=== PATIENT | female | born 1965 | race Caucasian/White ===

== ENCOUNTER 2018-11-04 15:54 | Outpatient (CLI) | payer BC | END 2018-11-04 15:55 | disposition home or self-care (01) | LOC: BICMAMMO 15:54 | PROVIDERS: ATTEND Family Medicine | DX: Z12.31 Encounter for screening mammogram for malignant neoplasm of breast (principal); R92.1 Mammographic calcification found on diagnostic imaging of breast; Z80.3 Family history of malignant neoplasm of breast | CPT/HCPCS: 77063; 77067 ==

== ENCOUNTER 2019-11-25 14:06 | Outpatient (CLI) | payer OTHER ==
--- NOTE | 2019-11-26 12:02 | MMO ---
Bilateral MAMMO Bilat Screen [facility]DI. CLINICAL HISTORY: Patient is 54 years old and is seen for screening. The patient has the following family history of breast cancer: mother, at age 55. The patient has no personal history of cancer. VIEWS: The views performed were: bilateral craniocaudal and bilateral mediolateral oblique. FILMS COMPARED: The present examination has been compared to prior imaging studies performed at [facility] on 09/18/2015 and 11/04/2018. This study has been interpreted with the assistance of computer-aided detection. MAMMOGRAM FINDINGS: The breasts are heterogeneously dense, which could obscure a lesion on mammography. Benign calcifications are noted bilaterally. There are no suspicious masses, suspicious calcifications, or new areas of architectural distortion. IMPRESSION: THERE IS NO MAMMOGRAPHIC EVIDENCE OF MALIGNANCY. A ROUTINE FOLLOW-UP MAMMOGRAM IN 1 YEAR IS RECOMMENDED. ACR BI-RADS Category 2 - Benign finding MAMMOGRAPHY NOTE: 1. A negative mammogram report should not delay a biopsy if a dominant of clinically suspicious mass is present. 2. Approximately 10% to 15% of breast cancers are not detected by mammography. 3. Adenosis and dense breasts may obscure an underlying neoplasm. Reported by: DUANE LA MD Electonically Signed: [id number]
== END 2019-11-25 14:07 | disposition home or self-care (01) ==
LOC: BICMAMMO 14:06
PROVIDERS: ATTEND Family Medicine
DX: Z12.31 Encounter for screening mammogram for malignant neoplasm of breast (principal); Z80.3 Family history of malignant neoplasm of breast
CPT/HCPCS: 77067

== ENCOUNTER 2020-07-14 06:15 | Outpatient (CLI) | payer OTHER ==
[2020-07-14 11:50] LABS: #Basophils 0.1 thou/uL (0.0-0.2); #Eosinphils 0.6 thou/uL (0.0-0.7); #Lymphocytes 1.9 thou/uL (1.20-3.40); #Monocytes 0.4 thou/uL (0.11-0.59); #Neutrophils 5.6 thou/uL (1.40-6.50); %Basophils 0.8 % (0.0-1.0); %Lymphocytes 22.5 % (21.0-51.0); %Monocytes 4.6 % (0.0-10.0); %Neutrophils 65.1 % (42.0-75.0); Hemoglobin 11.9 g/dL (12.0-16.0); Mean Corpuscular HGB CONC 32.6 g/dL (32.0-36.0); Mean Corpuscular Hemoglobin 29.7 pg (27.0-31.0); Mean Corpuscular Volume 90.9 fL (78.0-98.0); Mean Platelet Volume 7.2 fL (7.4-10.4); Platelet Count 380 thou/uL (130-400); RBC Distribution Width 12.1 % (11.5-14.5); Red Blood Cell (RBC) Count 4.01 mill/uL (4.20-5.40); White Blood Cell (WBC) Count 8.6 thou/uL (4.8-10.8)
[2020-07-14 12:16] LABS: Anion Gap 16 mmol/L (10-20); BUN (Urea Nitrogen) 62 mg/dL (9.8-20.1); Calc. Creatinine Clearance 0 mL/min (70-130); Calcium 9.7 mg/dL (7.8-10.44); Carbon Dioxide 18 mmol/L (22-29); Chloride 109 mmol/L (98-107); Estimated GFR-MDRD 10; Glucose 88 mg/dL (70-105); Sodium 138 mmol/L (136-145)
[2020-07-14 19:47] LABS: SARS-CoV-2 MS2 Positive; SARS-CoV-2 N Gene Negative; SARS-CoV-2 S Gene Negative; SARS-CoV-2 by NAA Not Detected (NotDetected); SARS-CoV-2 orf1ab Negative
--- NOTE | 2020-07-18 14:13 | EKG ---
Test Reason : Blood Pressure : / mmHG Vent. Rate : 061 BPM Atrial Rate : 061 BPM P-R Int : 148 ms QRS Dur : 080 ms QT Int : 420 ms P-R-T Axes : 055 080 066 degrees QTc Int : 422 ms Normal sinus rhythm Anteroseptal infarct , age undetermined Abnormal ECG No previous ECGs available Confirmed by NICHOLAS MILTON ([id number]) on 07/18/2020 2:13:37 PM Referred By: ABDULLAHI Confirmed By:NICHOLAS MILTON
== END 2020-07-14 06:16 | disposition home or self-care (01) ==
LOC: LABBT 06:15
PROVIDERS: ATTEND Specialist
DX: Z01.818 Encounter for other preprocedural examination (principal); Z20.828 Contact with and (suspected) exposure to other viral communicable diseases; N18.6 End stage renal disease
CPT/HCPCS: 80048; 85025; 87635; 93005; 93010; U0003

== ENCOUNTER 2021-07-02 14:07 | Outpatient (CLI) | payer MEDICARE, OTHER | END 2021-07-02 14:08 | disposition home or self-care (01) | LOC: BICCT 14:07 | PROVIDERS: ATTEND Family Medicine | DX: Z12.2 Encounter for screening for malignant neoplasm of respiratory organs (principal); Z87.891 Personal history of nicotine dependence | CPT/HCPCS: 71271 ==

== ENCOUNTER 2021-07-02 14:14 | Outpatient (CLI) | payer MEDICARE, OTHER | END 2021-07-02 14:15 | disposition home or self-care (01) | LOC: BICMAMMO 14:14 | PROVIDERS: ATTEND Family Medicine | DX: Z12.31 Encounter for screening mammogram for malignant neoplasm of breast (principal); Z13.820 Encounter for screening for osteoporosis; M81.0 Age-related osteoporosis without current pathological fracture; M85.88 Other specified disorders of bone density and structure, other site; Z80.3 Family history of malignant neoplasm of breast | CPT/HCPCS: 77063; 77067; 77080 ==

== ENCOUNTER 2021-09-20 11:03 | Day surgery (SDC) | payer MEDICARE, OTHER ==
[~2021-09-20 11:03] MED LIST: Acetaminophen 500 MG TAB PO PRN; Vedolizumab 300 MG in Sodium Chloride 0.9% 250 ML 250 ML IVPB SCH
[2021-09-20] MEDS ORDERED: Acetaminophen 500 MG TAB ONE (11:52)
[2021-09-20] MEDS ORDERED: diphenhydrAMINE 25 MG CAP ONE (11:52)
[2021-09-20 12:11] VITALS: BP 172/98; TEMP 98.3
== END 2021-09-20 12:52 | disposition home or self-care (01) ==
LOC: ONC/OP 11:03
PROVIDERS: ATTEND Internal Medicine Gastroenterology
DX: K50.10 Crohn's disease of large intestine without complications (principal)
CPT/HCPCS: 96413; J3380; J7050

== ENCOUNTER 2021-10-03 10:53 | Day surgery (SDC) | payer MEDICARE, OTHER ==
[2021-10-03] MEDS ORDERED: Sodium Chloride 0.9% 10 ML ONE ×2 (11:00)
== END 2021-10-03 11:48 | disposition home or self-care (01) ==
LOC: ONC/OP 10:53
PROVIDERS: ATTEND Internal Medicine Gastroenterology
DX: K50.10 Crohn's disease of large intestine without complications (principal)
CPT/HCPCS: 96413; J3380; J7050

== ENCOUNTER 2021-11-05 10:51 | Day surgery (SDC) | payer MEDICARE, OTHER ==
[~2021-11-05 10:51] MED LIST changes: +Sodium Chloride 0.9% 1,000 ML IV SCH
[2021-11-05] MEDS ORDERED: Sodium Chloride 0.9% 10 ML ONE (10:57)
[2021-11-05 11:19] VITALS: BP 135/85; TEMP 98.2
== END 2021-11-05 11:59 | disposition home or self-care (01) ==
LOC: ONC/OP 10:51
PROVIDERS: ATTEND Internal Medicine Gastroenterology
DX: K50.10 Crohn's disease of large intestine without complications (principal)
CPT/HCPCS: 36415; 80053; 80197; 81001; 83970; 84100; 85025; 85576; 86644; 86645; 87799; 96413; J3380; J7050

== ENCOUNTER 2022-02-21 10:58 | Day surgery (SDC) | payer MEDICARE, OTHER ==
[~2022-02-21 10:58] MED LIST changes: -Acetaminophen 500 MG TAB PO PRN; +Acetaminophen 500 MG TAB PO SCH; -Sodium Chloride 0.9% 1,000 ML IV SCH
[2022-02-21 11:13] VITALS: BP 146/85; TEMP 97.9
== END 2022-02-21 13:46 | disposition home or self-care (01) ==
LOC: ONC/OP 10:58
PROVIDERS: ATTEND Internal Medicine Gastroenterology
DX: K50.10 Crohn's disease of large intestine without complications (principal)
CPT/HCPCS: 96413; J3380; J7050

== ENCOUNTER 2022-03-21 10:58 | Day surgery (SDC) | payer MEDICARE, OTHER ==
[~2022-03-21 10:58] MED LIST changes: +Acetaminophen 500 MG TAB PO PRN; -Acetaminophen 500 MG TAB PO SCH
[2022-03-21 11:18] VITALS: BP 103/63; TEMP 98.5
== END 2022-03-21 13:15 | disposition home or self-care (01) ==
LOC: ONC/OP 10:58
PROVIDERS: ATTEND Internal Medicine Gastroenterology
DX: K50.10 Crohn's disease of large intestine without complications (principal)
CPT/HCPCS: 96413; J3380; J7050

== ENCOUNTER → 2022-04-18 | Day surgery (SDC) | payer MEDICARE, MEDICAID ==
[~2022-04-18] MED LIST changes: -Acetaminophen 500 MG TAB PO PRN; +Acetaminophen 500 MG TAB PO SCH
[2022-04-18 11:33] VITALS: BP 113/83; TEMP 98.2
== END | disposition home or self-care (01) ==
LOC: ONC/OP 11:01
PROVIDERS: ATTEND Internal Medicine Gastroenterology
DX: K50.10 Crohn's disease of large intestine without complications (principal)
CPT/HCPCS: 96413; J3380; J7050

== ENCOUNTER 2022-05-22 10:00 | Day surgery (SDC) | payer OTHER, MEDICAID ==
[~2022-05-22 10:00] MED LIST changes: +INFLIXIMAB ABDA IVPB SCH; +INFLIXIMAB IVPB SCH; +SODIUM CHLORIDE 0.9% IVPB SCH; -Vedolizumab 300 MG in Sodium Chloride 0.9% 250 ML 250 ML IVPB SCH; +diphenhydrAMINE 25 MG CAP PO SCH
[2022-05-22] MEDS ORDERED: Acetaminophen 500 MG TAB ONE ×2 (10:31)
[2022-05-22] MEDS ORDERED: diphenhydrAMINE 25 MG CAP ONE (10:31)
[2022-05-22 10:33] VITALS: BP 119/78; TEMP 97.7
== END 2022-05-22 13:19 | disposition home or self-care (01) ==
LOC: ONC/OP 10:00
PROVIDERS: ATTEND Internal Medicine Gastroenterology
DX: K50.10 Crohn's disease of large intestine without complications (principal)
CPT/HCPCS: 96413; 96415; J1745; J7050; Q5104

== ENCOUNTER 2022-07-04 09:46 | Day surgery (SDC) | payer OTHER, MEDICAID ==
[~2022-07-04 09:46] MED LIST changes: -INFLIXIMAB IVPB SCH
[2022-07-04] MEDS ORDERED: Acetaminophen 500 MG TAB ONE ×2 (09:55)
[2022-07-04] MEDS ORDERED: diphenhydrAMINE 25 MG CAP ONE (09:55)
[2022-07-04] MEDS ORDERED: SODIUM CHLORIDE 0.9% IVPB SCH (10:00)
[2022-07-04] MEDS ORDERED: INFLIXIMAB ABDA IVPB SCH (10:00)
[2022-07-04 11:21] VITALS: BP 135/91; TEMP 98.6
== END 2022-07-04 16:54 | disposition home or self-care (01) ==
LOC: ONC/OP 09:46
PROVIDERS: ATTEND Internal Medicine Gastroenterology
DX: K50.10 Crohn's disease of large intestine without complications (principal)
CPT/HCPCS: 96413; 96415; J7050; Q5104

== ENCOUNTER 2022-08-27 15:29 | Observation (INO) | payer OTHER, MEDICAID ==
[2022-08-27] MEDS ORDERED: FENTANYL 50 MCG/ML 1 ML VIAL ONE (16:11)
[2022-08-27 16:17] LABS: Hemoglobin 14.7 g/dL (12.0-16.0); Mean Corpuscular HGB CONC 33.9 g/dL (32.0-36.0); Mean Corpuscular Volume 94.3 fl (78.0-98.0); Mean Platelet Volume 7.2 fL (7.4-10.4); Platelet Count 211 10x3/uL (130-400); RBC Distribution Width 12.9 % (11.5-14.5); Red Blood Cell (RBC) Count 4.59 mill/uL (4.20-5.40)
[2022-08-27 16:35] LABS: ALT (SGPT) 20 U/L (8-55); AST (SGOT) 34 U/L (5-34); Albumin 4.7 g/dL (3.5-5.0); Alkaline Phosphatase 49 U/L (40-110); Anion Gap 20 mmol/L (10-20); BUN (Urea Nitrogen) 13 mg/dL (9.8-20.1); Bilirubin, Total 0.5 mg/dL (0.2-1.2); Calc. Creatinine Clearance 0 mL/min (70-130); Calcium 8.8 mg/dL (7.8-10.44); Carbon Dioxide 14 mmol/L (22-29); Chloride 99 mmol/L (98-107); Estimated GFR 54; Globulin 3.6 g/dL (2.4-3.5); Glucose 163 mg/dL (70-105); Lipase 28 U/L (8-78); Potassium 4.4 mmol/L (3.5-5.1); Protein, Total 8.3 g/dL (6.0-8.3); Sodium 129 mmol/L (136-145)
[2022-08-27 16:47] LABS: Bacteria/HPF None Seen HPF (None Seen); Bilirubin Negative (Negative); Blood, Urine Trace (Negative); Clarity Clear (Clear); Glucose, Urine (Dipstick) Normal (Negative); Ketone, Urine 80 mg/dL (Negative); Leukocyte Negative Leu/uL (Negative); Nitrite Negative (Negative); Protein, Urine (Dipstick) 50 mg/dL (Neg-Trace); RBC/HPF 0-3 HPF (0-3); Specific Gravity, Urine 1.016 (1.002-1.036); Squamous Epithelial None Seen HPF (0-3); Urobilinogen Normal mg/dL (Less than 2); WBC/HPF 0-3 HPF (0-3); pH, Urine 5.5 (5.0-9.0)
[2022-08-27 16:48] LABS: Band 5 % (5-11); Lymphocytes 6 % (21-51); MDiff Complete? YES; Monocytes 7 % (0-10); Neutrophil 82 % (42-75); Platelet Morphology Comment Appears Adequate; RBC Morphology Normal
[2022-08-27] MEDS ORDERED: HYDROcodone/Acetaminophen 5/325 mg Tablet PO PRN (17:53)
[2022-08-27] MEDS ORDERED: Acetaminophen 325 MG TAB PO PRN (17:53)
[2022-08-27] MEDS ORDERED: HYDROcodone/Acetaminophen 5/325 mg Tablet ONE (18:24)
[2022-08-27 19:48] LABS: Troponin I 0.024 ng/mL (< 0.028)
[2022-08-27] MEDS: cefTRIAXone\\ROCEPHIN 1 GM in Sodium Chloride 0.9% 100 ML IVPB SCH (20:35)
[2022-08-27] MEDS: Sodium Chloride 0.9% 1,000 ML IV SCH (20:35)
[2022-08-27] MEDS: Famotidine 20 MG TAB PO SCH (20:41)
[2022-08-27] MEDS ORDERED: Tacrolimus 0.5 MG CAP PO SCH (21:00)
[2022-08-27] MEDS: Mycophenolate 250 MG CAP PO SCH (21:46)
[2022-08-27] MEDS ORDERED: Sodium Chloride 0.65% Nasal 44 ML BOT EA NARE PRN (22:16)
[2022-08-27] MEDS ORDERED: Ondansetron PF 4 MG/2 ML Vial IVP PRN (22:16)
[2022-08-27 22:31] LABS: Troponin I 0.016 ng/mL (< 0.028)
[2022-08-27 22:37] LABS: SARS-CoV-2 NAA Rapid Test Not Detected (NotDetected)
[2022-08-27] MEDS: HYDROcodone/Acetaminophen 5/325 mg Tablet PO PRN (23:23)
[2022-08-28] MEDS ORDERED: Oseltamivir 75 MG CAP PO SCH (02:00)
[2022-08-28 02:12] LABS: Amphetamine Not Detected (NotDetected); Barbiturates Screen Not Detected (NotDetected); Benzodiazepine Screen Not Detected (NotDetected); Cocaine Metabolite Screen Not Detected (NotDetected); Methadone Not Detected (NotDetected); Methamphetamine Not Detected (NotDetected); Opiate Screen Not Detected (NotDetected); Oxycodone Screen Not Detected (NotDetected); Phencyclidine (PCP) Not Detected (NotDetected); THC/Cannabinoid Screen Detected (NotDetected); Tricyclic Screen Not Detected (NotDetected)
[2022-08-28] MEDS: HYDROcodone/Acetaminophen 5/325 mg Tablet PO PRN ×2 (03:33→08:48)
[2022-08-28 05:49] LABS: Anion Gap 15 mmol/L (10-20); BUN (Urea Nitrogen) 11 mg/dL (9.8-20.1); Calc. Creatinine Clearance 61 mL/min (70-130); Carbon Dioxide 18 mmol/L (22-29); Chloride 101 mmol/L (98-107); Estimated GFR 70; Glucose 112 mg/dL (70-105); Potassium 4.7 mmol/L (3.5-5.1); Sodium 129 mmol/L (136-145)
[2022-08-28] MEDS: Famotidine 20 MG TAB PO SCH (08:44)
[2022-08-28] MEDS: Mycophenolate 250 MG CAP PO SCH (08:45)
[2022-08-28] MEDS: Sodium Bicarbonate Tab 325 MG TAB PO SCH ×2 (08:46→16:28)
[2022-08-28] MEDS ORDERED: Tacrolimus 0.5 MG CAP PO SCH (09:00)
[2022-08-28] MEDS ORDERED: predniSONE 5 MG TAB PO SCH (09:00)
[2022-08-28] MEDS ORDERED: Oseltamivir 6 MG/ML ORAL SUSP PO SCH (09:00)
[2022-08-28] MEDS ORDERED: NIFEdipine 10 MG CAP PO SCH (09:00)
[2022-08-28] MEDS: Sodium Chloride 0.9% 1,000 ML IV SCH (09:03)
[2022-08-28 09:34] LABS: Band 14 % (5-11); Hemoglobin 13.5 g/dL (12.0-16.0); Lymphocytes 8 % (21-51); MDiff Complete? YES; Mean Corpuscular HGB CONC 33.2 g/dL (32.0-36.0); Mean Corpuscular Hemoglobin 31.3 pg (27.0-31.0); Mean Corpuscular Volume 94.4 fl (78.0-98.0); Mean Platelet Volume 7.2 fL (7.4-10.4); Monocytes 16 % (0-10); Neutrophil 62 % (42-75); Platelet Count 169 10x3/uL (130-400); Platelet Morphology Comment Appears Adequate; RBC Distribution Width 12.9 % (11.5-14.5); RBC Morphology Normal; Red Blood Cell (RBC) Count 4.31 mill/uL (4.20-5.40); Vacuoles SLIGHT; White Blood Cell (WBC) Count 9.6 10x3/uL (4.8-10.8)
[2022-08-28 15:52] VITALS: BP 132/90; TEMP 98.5
[2022-08-28] MEDS: Ondansetron ODT 4 MG TAB PO PRN ×2 (16:28→18:47)
[2022-08-28] MEDS: cefTRIAXone\\ROCEPHIN 1 GM in Sodium Chloride 0.9% 100 ML IVPB SCH (18:46)
== END 2022-08-28 19:10 | disposition home or self-care (01) ==
LOC: ERS 15:29 → 2SW 17:42
PROVIDERS: ADMIT Internal Medicine; ATTEND Internal Medicine
DX: J10.1 Influenza due to other identified influenza virus with other respiratory manifestations (principal); E87.1 Hypo-osmolality and hyponatremia; I12.9 Hypertensive chronic kidney disease with stage 1 through stage 4 chronic kidney disease, or unspecified chronic kidney disease; N18.9 Chronic kidney disease, unspecified; K50.90 Crohn's disease, unspecified, without complications; Z87.891 Personal history of nicotine dependence; Z79.52 Long term (current) use of systemic steroids; Z79.621 Long term (current) use of calcineurin inhibitor; Z79.899 Other long term (current) drug therapy; Z94.0 Kidney transplant status; Z20.822 Contact with and (suspected) exposure to COVID-19
CPT/HCPCS: 0240U; 71045; 80048; 80053; 80306; 83690; 83880; 84484 ×2; 85025 ×2; 85379; 93005; 96374; 99285; J3010; 36415; 81003; 81015; 96365; 96375; G0378; J0696; J2405; J3490; J7050; J7507; J7512; J7517; Q0162

== ENCOUNTER 2022-09-02 12:51 | Day surgery (SDC) | payer OTHER, MEDICAID ==
[2022-09-02] MEDS ORDERED: Acetaminophen 500 MG TAB ONE ×2 (13:54→13:55)
[2022-09-02] MEDS ORDERED: diphenhydrAMINE 25 MG CAP ONE (13:55)
[2022-09-02 16:35] VITALS: BP 103/72; TEMP 97.9
== END 2022-09-02 16:37 | disposition home or self-care (01) ==
LOC: ONC/OP 12:51
PROVIDERS: ATTEND Internal Medicine Gastroenterology
DX: K50.80 Crohn's disease of both small and large intestine without complications (principal)
CPT/HCPCS: 96413; 96415; J7050; Q5104

== ENCOUNTER 2022-10-08 12:15 | Emergency (ER) | payer OTHER ==
[2022-10-08] MEDS ORDERED: Haloperidol Lactate 5 MG/ML VIAL ONE (12:52)
[2022-10-08 13:05] LABS: #Eosinphils 0.1 thou/uL (0.0-0.7); #Lymphocytes 0.9 thou/uL (1.20-3.40); #Monocytes 0.7 thou/uL (0.11-0.59); #Neutrophils 11.8 thou/uL (1.40-6.50); %Basophils 0.1 % (0.0-1.0); %Eosinophils 0.6 % (0.0-10.0); %Lymphocytes 6.9 % (21.0-51.0); %Monocytes 5.1 % (0.0-10.0); %Neutrophils 87.2 % (42.0-75.0); Hemoglobin 13.9 g/dL (12.0-16.0); Mean Corpuscular HGB CONC 33.3 g/dL (32.0-36.0); Mean Corpuscular Hemoglobin 31.1 pg (27.0-31.0); Mean Corpuscular Volume 93.5 fl (78.0-98.0); Mean Platelet Volume 6.6 fL (7.4-10.4); Platelet Count 406 10x3/uL (130-400); RBC Distribution Width 12.3 % (11.5-14.5); Red Blood Cell (RBC) Count 4.46 mill/uL (4.20-5.40); White Blood Cell (WBC) Count 13.6 10x3/uL (4.8-10.8)
[2022-10-08 13:33] LABS: ALT (SGPT) 11 U/L (8-55); AST (SGOT) 14 U/L (5-34); Albumin 4.8 g/dL (3.5-5.0); Alkaline Phosphatase 46 U/L (40-110); Anion Gap 20 mmol/L (10-20); BUN (Urea Nitrogen) 10 mg/dL (9.8-20.1); Bilirubin, Total 0.9 mg/dL (0.2-1.2); Calc. Creatinine Clearance 0 mL/min (70-130); Calcium 10.1 mg/dL (7.8-10.44); Carbon Dioxide 18 mmol/L (22-29); Chloride 100 mmol/L (98-107); Estimated GFR 55; Globulin 3.4 g/dL (2.4-3.5); Glucose 177 mg/dL (70-105); Potassium 3.9 mmol/L (3.5-5.1); Protein, Total 8.2 g/dL (6.0-8.3); Sodium 134 mmol/L (136-145)
[2022-10-08] MEDS ORDERED: Dexamethasone 10 MG/ML VIAL ONE (15:33)
[2022-10-08] MEDS ORDERED: Ketorolac Tromethamine 30 MG/ML VIAL ONE (15:33)
[2022-10-08 15:39] LABS: Bacteria/HPF None Seen HPF (None Seen); Bilirubin Negative (Negative); Blood, Urine Negative (Negative); Clarity Clear (Clear); Glucose, Urine (Dipstick) Normal (Negative); Ketone, Urine Trace mg/dL (Negative); Leukocyte 75 Leu/uL (Negative); Nitrite Negative (Negative); Protein, Urine (Dipstick) Negative (Neg-Trace); RBC/HPF 0-3 HPF (0-3); Specific Gravity, Urine 1.006 (1.002-1.036); Squamous Epithelial None Seen HPF (0-3); Urobilinogen Normal mg/dL (Less than 2)
[2022-10-08 15:46] LABS: Amphetamine Not Detected (NotDetected); Barbiturates Screen Not Detected (NotDetected); Benzodiazepine Screen Not Detected (NotDetected); Cocaine Metabolite Screen Not Detected (NotDetected); Methadone Not Detected (NotDetected); Methamphetamine Not Detected (NotDetected); Opiate Screen Not Detected (NotDetected); Oxycodone Screen Not Detected (NotDetected); Phencyclidine (PCP) Not Detected (NotDetected); THC/Cannabinoid Screen Detected (NotDetected); Tricyclic Screen Not Detected (NotDetected)
== END 2022-10-08 18:36 | disposition home or self-care (01) ==
LOC: ERS 12:15
DX: R51.9 Headache, unspecified (principal); I10 Essential (primary) hypertension; Z87.891 Personal history of nicotine dependence
CPT/HCPCS: 36415; 70450; 80053; 80306; 81003; 81015; 85025; 96374; 96375; J1100; J1630; J1885

== ENCOUNTER 2022-10-14 20:39 | Inpatient (IN) | payer OTHER ==
[2022-10-14 21:17] LABS: #Lymphocytes 1.1 thou/uL (1.20-3.40); #Monocytes 1.1 thou/uL (0.11-0.59); #Neutrophils 14.5 thou/uL (1.40-6.50); %Basophils 0.2 % (0.0-1.0); %Eosinophils 0.2 % (0.0-10.0); %Lymphocytes 6.7 % (21.0-51.0); %Monocytes 6.4 % (0.0-10.0); %Neutrophils 86.5 % (42.0-75.0); Hemoglobin 14.2 g/dL (12.0-16.0); Mean Corpuscular HGB CONC 35.2 g/dL (32.0-36.0); Mean Corpuscular Hemoglobin 31.8 pg (27.0-31.0); Mean Corpuscular Volume 90.1 fl (78.0-98.0); Mean Platelet Volume 6.3 fL (7.4-10.4); Platelet Count 480 10x3/uL (130-400); RBC Distribution Width 12.2 % (11.5-14.5); Red Blood Cell (RBC) Count 4.48 mill/uL (4.20-5.40); White Blood Cell (WBC) Count 16.8 10x3/uL (4.8-10.8)
[2022-10-14 21:36] LABS: ALT (SGPT) 11 U/L (8-55); AST (SGOT) 15 U/L (5-34); Albumin 4.9 g/dL (3.5-5.0); Alkaline Phosphatase 42 U/L (40-110); Anion Gap 23 mmol/L (10-20); BUN (Urea Nitrogen) 10 mg/dL (9.8-20.1); Bilirubin, Total 1.2 mg/dL (0.2-1.2); Calc. Creatinine Clearance 0 mL/min (70-130); Calcium 9.3 mg/dL (7.8-10.44); Carbon Dioxide 15 mmol/L (22-29); Chloride 83 mmol/L (98-107); Estimated GFR 65; Globulin 2.9 g/dL (2.4-3.5); Glucose 232 mg/dL (70-105); Lipase 27 U/L (8-78); Potassium 3.9 mmol/L (3.5-5.1); Protein, Total 7.8 g/dL (6.0-8.3)
[2022-10-14 21:42] LABS: Sodium 117 mmol/L (136-145)
[2022-10-14] MEDS ORDERED: Ondansetron ODT 8 MG TAB ONE ×2 (22:17→22:18)
[2022-10-14] MEDS ORDERED: Ondansetron PF 4 MG/2 ML Vial ONE (22:35)
[2022-10-14] MEDS ORDERED: Ondansetron PF 4 MG/2 ML Vial IVP PRN (23:03)
[2022-10-14] MEDS ORDERED: Ondansetron ODT 4 MG TAB PO PRN (23:03)
[2022-10-14] MEDS ORDERED: Acetaminophen 650 MG Suppository PR PRN (23:03)
[2022-10-14] MEDS ORDERED: LORazepam 2 MG/ML SYR.(CARPUJECT) ONE (23:08)
[2022-10-14] MEDS ORDERED: Dexmedetomidine In 0.9 % NaCl 100 ML IVPB SCH (23:45)
[2022-10-14] MEDS ORDERED: Pantoprazole 40 MG VIAL IVP SCH (23:45)
[2022-10-14 23:50] VITALS: BMI 19.0
[2022-10-14] MEDS: Morphine 4 MG/ML VIAL SLOW IVP PRN (23:51)
[2022-10-14] MEDS ORDERED: Tacrolimus 0.5 MG CAP PO SCH (23:59)
[2022-10-15] MEDS: Promethazine HCl 25 MG/ML VIAL IM PRN ×2 (00:04→16:29)
[2022-10-15] MEDS ORDERED: VANCOMYCIN 1.25 GM/250 ML BAG IVPB SCH (00:15)
[2022-10-15] MEDS ORDERED: Meropenem 1 GM in Sodium Chloride 0.9% 100 ML IVPB SCH ×2 (00:15→00:30)
[2022-10-15 00:37] LABS: Anion Gap 16 mmol/L (10-20); BUN (Urea Nitrogen) 11 mg/dL (9.8-20.1); Calc. Creatinine Clearance 62 mL/min (70-130); Calcium 8.7 mg/dL (7.8-10.44); Carbon Dioxide 18 mmol/L (22-29); Chloride 86 mmol/L (98-107); Estimated GFR 77; Glucose 158 mg/dL (70-105); Potassium 3.2 mmol/L (3.5-5.1)
[2022-10-15 00:43] LABS: Sodium 117 mmol/L (136-145)
[2022-10-15] MEDS ORDERED: VANCOMYCIN 1.25 GM/250 ML BAG 1.25 GM in Premix Bag 1 BAG IVPB SCH (00:45)
[2022-10-15] MEDS ORDERED: Sodium Chloride 256 MEQ in Sterile Water Injection 936 ML IV SCH (01:00)
[2022-10-15 01:03] LABS: SARS-CoV-2 NAA Rapid Test Not Detected (NotDetected)
[2022-10-15 01:14] LABS: Lactic Acid 1.6 mmol/L (0.5-2.2)
[2022-10-15 01:32] LABS: Bacteria/HPF None Seen HPF (None Seen); Bilirubin Negative (Negative); Blood, Urine Negative (Negative); CAUTI Indications for Culture Immunosuppressed; Clarity Clear (Clear); Glucose, Urine (Dipstick) 100 mg/dL (Negative); Ketone, Urine 20 mg/dL (Negative); Leukocyte Negative Leu/uL (Negative); Nitrite Negative (Negative); Protein, Urine (Dipstick) 300 mg/dL (Neg-Trace); RBC/HPF 0-3 HPF (0-3); Specific Gravity, Urine 1.017 (1.002-1.036); Squamous Epithelial None Seen HPF (0-3); Urobilinogen Normal mg/dL (Less than 2); WBC/HPF 0-3 HPF (0-3)
[2022-10-15 01:39] LABS: Urine Culture Reflex Yes Yes
[2022-10-15 03:41] LABS: #Monocytes 1.2 thou/uL (0.11-0.59); #Neutrophils 11.4 thou/uL (1.40-6.50); %Basophils 0.1 % (0.0-1.0); %Eosinophils 0.3 % (0.0-10.0); %Lymphocytes 7.4 % (21.0-51.0); %Monocytes 8.5 % (0.0-10.0); %Neutrophils 83.7 % (42.0-75.0); Hemoglobin 13.6 g/dL (12.0-16.0); Mean Corpuscular HGB CONC 35.4 g/dL (32.0-36.0); Mean Corpuscular Hemoglobin 32.1 pg (27.0-31.0); Mean Corpuscular Volume 90.7 fl (78.0-98.0); Mean Platelet Volume 6.5 fL (7.4-10.4); Platelet Count 419 10x3/uL (130-400); RBC Distribution Width 12.2 % (11.5-14.5); Red Blood Cell (RBC) Count 4.23 mill/uL (4.20-5.40); White Blood Cell (WBC) Count 13.7 10x3/uL (4.8-10.8)
[2022-10-15] MEDS: Acetaminophen 325 MG TAB PO PRN (03:56)
[2022-10-15 04:00] LABS: Hemoglobin A1c 5.8 % (4.0-6.0)
[2022-10-15 04:20] LABS: Anion Gap 17 mmol/L (10-20); BUN (Urea Nitrogen) 12 mg/dL (9.8-20.1); Calc. Creatinine Clearance 62 mL/min (70-130); Calcium 8.6 mg/dL (7.8-10.44); Carbon Dioxide 22 mmol/L (22-29); Chloride 88 mmol/L (98-107); Estimated GFR 77; Glucose 136 mg/dL (70-105); Potassium 4.2 mmol/L (3.5-5.1); Sodium 123 mmol/L (136-145)
[2022-10-15 07:38] LABS: Anion Gap 14 mmol/L (10-20); BUN (Urea Nitrogen) 12 mg/dL (9.8-20.1); Calc. Creatinine Clearance 55 mL/min (70-130); Calcium 8.5 mg/dL (7.8-10.44); Carbon Dioxide 24 mmol/L (22-29); Chloride 91 mmol/L (98-107); Estimated GFR 67; Glucose 122 mg/dL (70-105); Potassium 3.8 mmol/L (3.5-5.1); Sodium 125 mmol/L (136-145)
[2022-10-15] MEDS ORDERED: Tacrolimus 1 MG CAP PO SCH (09:00)
[2022-10-15] MEDS ORDERED: Pantoprazole 40 MG VIAL IVP SCH (09:00)
[2022-10-15] MEDS: Meropenem 1 GM in Sodium Chloride 0.9% 100 ML IVPB SCH ×2 (09:50→09:58)
[2022-10-15] MEDS: Morphine 4 MG/ML VIAL SLOW IVP PRN ×2 (13:23→19:30)
[2022-10-15] MEDS ORDERED: Vancomycin HCl 750 MG in Sodium Chloride 0.9% 250 ML 250 ML IVPB SCH (14:00)
[2022-10-15] MEDS ORDERED: Promethazine HCl 25 MG in Sodium Chloride 0.9% 50 ML IVPB PRN (17:16)
[2022-10-15] MEDS: Mycophenolate 250 MG CAP PO SCH (20:43)
[2022-10-15] MEDS: Tacrolimus 0.5 MG CAP PO SCH (20:43)
[2022-10-15] MEDS: Fioricet 325/50/40 mg Tablet PO PRN (20:43)
[2022-10-15] MEDS ORDERED: Tacrolimus 0.5 MG CAP PO SCH (21:00)
[2022-10-16] MEDS: Meropenem 1 GM in Sodium Chloride 0.9% 100 ML IVPB SCH ×2 (02:26→10:35)
[2022-10-16 04:10] LABS: #Eosinphils 0.1 thou/uL (0.0-0.7); #Lymphocytes 1.6 thou/uL (1.20-3.40); #Monocytes 1.4 thou/uL (0.11-0.59); #Neutrophils 8.9 thou/uL (1.40-6.50); %Basophils 0.1 % (0.0-1.0); %Eosinophils 0.6 % (0.0-10.0); %Lymphocytes 12.9 % (21.0-51.0); %Monocytes 11.8 % (0.0-10.0); %Neutrophils 74.7 % (42.0-75.0); Hemoglobin 13.2 g/dL (12.0-16.0); Mean Corpuscular HGB CONC 33.9 g/dL (32.0-36.0); Mean Corpuscular Hemoglobin 31.1 pg (27.0-31.0); Mean Platelet Volume 6.4 fL (7.4-10.4); Platelet Count 404 10x3/uL (130-400); RBC Distribution Width 12.3 % (11.5-14.5); Red Blood Cell (RBC) Count 4.24 mill/uL (4.20-5.40)
[2022-10-16 04:28] LABS: Anion Gap 14 mmol/L (10-20); BUN (Urea Nitrogen) 12 mg/dL (9.8-20.1); Calc. Creatinine Clearance 55 mL/min (70-130); Calcium 8.6 mg/dL (7.8-10.44); Carbon Dioxide 24 mmol/L (22-29); Chloride 89 mmol/L (98-107); Estimated GFR 66; Glucose 119 mg/dL (70-105); Potassium 3.8 mmol/L (3.5-5.1); Sodium 123 mmol/L (136-145)
[2022-10-16] MEDS: Tacrolimus 0.5 MG CAP PO SCH ×2 (10:33→20:12)
[2022-10-16] MEDS: Mycophenolate 250 MG CAP PO SCH ×2 (10:34→20:12)
[2022-10-16] MEDS: Cholecalciferol 1,000 UNITS (25 MCG) TAB PO SCH (10:34)
[2022-10-16] MEDS: Famotidine 20 MG TAB PO SCH (10:34)
[2022-10-16] MEDS: Morphine 4 MG/ML VIAL SLOW IVP PRN ×2 (10:44→17:09)
[2022-10-16 13:22] LABS: CSF, Glucose 36 mg/dl (40-70); CSF, Protein 94 mg/dL (15-40)
[2022-10-16] MEDS ORDERED: STERILE WATER FS SCH (13:30)
[2022-10-16] MEDS ORDERED: SODIUM CHLORIDE 3% FS SCH (13:30)
[2022-10-16] MEDS ORDERED: ADMIXTURE FEE FS SCH (13:30)
[2022-10-16] MEDS ORDERED: cefTRIAXone\\ROCEPHIN 2 GM in Sodium Chloride 0.9% 100 ML IVPB SCH ×2 (14:00→18:00)
[2022-10-16] MEDS: ADMIXTURE FEE IV SCH (14:06)
[2022-10-16] MEDS: SODIUM CHLORIDE IV SCH (14:06)
[2022-10-16] MEDS: STERILE WATER IV SCH (14:06)
[2022-10-16 14:15] LABS: CSF Source CSF; Clarity Hazy (Clear); Tube # EDTA
[2022-10-16 14:17] LABS: Cell Count Non Hematic 11 %; Lymphocytes 39 %; Segmented Neutrophils 50 %
[2022-10-16 16:10] LABS: Anion Gap 12 mmol/L (10-20); BUN (Urea Nitrogen) 12 mg/dL (9.8-20.1); Calc. Creatinine Clearance 58 mL/min (70-130); Calcium 8.4 mg/dL (7.8-10.44); Carbon Dioxide 26 mmol/L (22-29); Chloride 87 mmol/L (98-107); Estimated GFR 72; Glucose 136 mg/dL (70-105); Potassium 3.5 mmol/L (3.5-5.1); Sodium 121 mmol/L (136-145)
[2022-10-16] MEDS: cefTRIAXone\\ROCEPHIN 2 GM in Sodium Chloride 0.9% 100 ML IVPB SCH (18:33)
[2022-10-16] MEDS: Promethazine HCl 12.5 MG in Sodium Chloride 0.9% 50 ML IVPB PRN (18:33)
[2022-10-16] MEDS: Ampicillin 2 GM in Sodium Chloride 0.9% 100 ML IVPB SCH (20:14)
[2022-10-16] MEDS ORDERED: AMPicillin 2,000 MG in Syringe 0 ML SLOW IVP SCH (21:00)
[2022-10-16] MEDS: Acyclovir Sodium 620 MG in Sodium Chloride 0.9% 100 ML IVPB SCH (21:39)
[2022-10-16] MEDS: Fioricet 325/50/40 mg Tablet PO PRN (21:48)
[2022-10-17] MEDS: Ampicillin 2 GM in Sodium Chloride 0.9% 100 ML IVPB SCH ×6 (00:25→23:28)
[2022-10-17] MEDS: ADMIXTURE FEE IV SCH ×2 (01:32→15:24)
[2022-10-17] MEDS: SODIUM CHLORIDE IV SCH ×2 (01:32→15:24)
[2022-10-17] MEDS: STERILE WATER IV SCH ×2 (01:32→15:24)
[2022-10-17] MEDS: Acetaminophen 325 MG TAB PO PRN ×2 (04:08→10:40)
[2022-10-17] MEDS: Morphine 4 MG/ML VIAL SLOW IVP PRN ×2 (04:16→15:18)
[2022-10-17] MEDS: Promethazine HCl 12.5 MG in Sodium Chloride 0.9% 50 ML IVPB PRN ×3 (04:47→21:03)
[2022-10-17] MEDS: Acyclovir Sodium 620 MG in Sodium Chloride 0.9% 100 ML IVPB SCH (05:09)
[2022-10-17 06:58] LABS: Anion Gap 14 mmol/L (10-20); BUN (Urea Nitrogen) 6 mg/dL (9.8-20.1); Calc. Creatinine Clearance 75 mL/min (70-130); Calcium 7.5 mg/dL (7.8-10.44); Carbon Dioxide 21 mmol/L (22-29); Chloride 93 mmol/L (98-107); Estimated GFR 95; Glucose 135 mg/dL (70-105); Potassium 3.4 mmol/L (3.5-5.1); Sodium 125 mmol/L (136-145)
[2022-10-17 07:02] LABS: Anion Gap 14 mmol/L (10-20); BUN (Urea Nitrogen) 7 mg/dL (9.8-20.1); Calc. Creatinine Clearance 73 mL/min (70-130); Calcium 7.8 mg/dL (7.8-10.44); Carbon Dioxide 23 mmol/L (22-29); Chloride 94 mmol/L (98-107); Estimated GFR 92; Glucose 140 mg/dL (70-105); Potassium 3.6 mmol/L (3.5-5.1); Sodium 127 mmol/L (136-145)
[2022-10-17] MEDS: cefTRIAXone\\ROCEPHIN 2 GM in Sodium Chloride 0.9% 100 ML IVPB SCH ×2 (10:38→20:06)
[2022-10-17] MEDS: Famotidine 20 MG TAB PO SCH (10:41)
[2022-10-17] MEDS: Cholecalciferol 1,000 UNITS (25 MCG) TAB PO SCH (10:41)
[2022-10-17] MEDS: Mycophenolate 250 MG CAP PO SCH ×2 (10:42→21:46)
[2022-10-17] MEDS: Tacrolimus 0.5 MG CAP PO SCH ×2 (10:42→21:47)
[2022-10-17 13:31] LABS: Reference Lab Name LABCORP
[2022-10-17 13:41] LABS: Ref Lab Test Ordered HISTOPLASMA AG CSF; Reference Lab Name LABCORP
[2022-10-17] MEDS ORDERED: NIFEdipine XL 30 MG TAB PO SCH (15:45)
[2022-10-17 18:49] LABS: Anion Gap 11 mmol/L (10-20); BUN (Urea Nitrogen) 4 mg/dL (9.8-20.1); Calc. Creatinine Clearance 78 mL/min (70-130); Calcium 7.7 mg/dL (7.8-10.44); Carbon Dioxide 25 mmol/L (22-29); Chloride 92 mmol/L (98-107); Estimated GFR 100; Glucose 131 mg/dL (70-105); Potassium 3.1 mmol/L (3.5-5.1); Sodium 125 mmol/L (136-145)
[2022-10-17] MEDS: Fioricet 325/50/40 mg Tablet PO PRN (23:51)
[2022-10-18] MEDS: Ampicillin 2 GM in Sodium Chloride 0.9% 100 ML IVPB SCH ×3 (02:32→09:52)
[2022-10-18] MEDS: SODIUM CHLORIDE IV SCH ×3 (05:07→19:24)
[2022-10-18] MEDS: ADMIXTURE FEE IV SCH ×3 (05:07→19:24)
[2022-10-18] MEDS: STERILE WATER IV SCH ×3 (05:07→19:24)
[2022-10-18 06:17] LABS: #Eosinphils 0.1 thou/uL (0.0-0.7); #Monocytes 0.9 thou/uL (0.11-0.59); #Neutrophils 8.4 thou/uL (1.40-6.50); %Basophils 0.4 % (0.0-1.0); %Eosinophils 0.8 % (0.0-10.0); %Lymphocytes 9.9 % (21.0-51.0); %Monocytes 8.1 % (0.0-10.0); %Neutrophils 80.8 % (42.0-75.0); Hemoglobin 12.4 g/dL (12.0-16.0); Mean Corpuscular Hemoglobin 31.3 pg (27.0-31.0); Mean Corpuscular Volume 92.1 fl (78.0-98.0); Mean Platelet Volume 6.3 fL (7.4-10.4); Platelet Count 346 10x3/uL (130-400); RBC Distribution Width 12.1 % (11.5-14.5); Red Blood Cell (RBC) Count 3.96 mill/uL (4.20-5.40); White Blood Cell (WBC) Count 10.4 10x3/uL (4.8-10.8)
[2022-10-18 06:33] LABS: Anion Gap 14 mmol/L (10-20); BUN (Urea Nitrogen) Less than 4 mg/dL (9.8-20.1); Calc. Creatinine Clearance 75 mL/min (70-130); Calcium 7.8 mg/dL (7.8-10.44); Carbon Dioxide 24 mmol/L (22-29); Chloride 91 mmol/L (98-107); Estimated GFR 95; Glucose 130 mg/dL (70-105); Potassium 3.1 mmol/L (3.5-5.1); Sodium 126 mmol/L (136-145)
[2022-10-18] MEDS: cefTRIAXone\\ROCEPHIN 2 GM in Sodium Chloride 0.9% 100 ML IVPB SCH (08:24)
[2022-10-18] MEDS: Promethazine HCl 12.5 MG in Sodium Chloride 0.9% 50 ML IVPB PRN (08:26)
[2022-10-18] MEDS: SUMAtriptan Succinate 6 MG/0.5 ML VIAL SC PRN (09:12)
[2022-10-18] MEDS: Losartan 25 MG TAB PO SCH (09:45)
[2022-10-18] MEDS: NIFEdipine XL 30 MG TAB PO SCH (09:45)
[2022-10-18] MEDS: Famotidine 20 MG TAB PO SCH (09:46)
[2022-10-18] MEDS: Mycophenolate 250 MG CAP PO SCH ×2 (09:46→21:10)
[2022-10-18] MEDS: Cholecalciferol 1,000 UNITS (25 MCG) TAB PO SCH (09:46)
[2022-10-18] MEDS: Tacrolimus 0.5 MG CAP PO SCH ×2 (09:46→20:57)
[2022-10-18] MEDS ORDERED: Polyethylene Glycol 3350 17 GM Packet PO PRN (11:18)
[2022-10-18] MEDS: Ambisome 300 MG in Dextrose 5% in Water 250 ML IVPB SCH (14:39)
[2022-10-18] MEDS: Fioricet 325/50/40 mg Tablet PO PRN ×2 (15:05→21:42)
[2022-10-18] MEDS ORDERED: Potassium Chloride 20 MEQ TAB PO SCH ×2 (20:00→21:00)
[2022-10-18] MEDS ORDERED: Electrolyte Replacement Protocol 1 EACH FS SCH (20:00)
[2022-10-18 20:47] LABS: Anion Gap 12 mmol/L (10-20); BUN (Urea Nitrogen) 4 mg/dL (9.8-20.1); Calc. Creatinine Clearance 81 mL/min (70-130); Calcium 8.3 mg/dL (7.8-10.44); Carbon Dioxide 24 mmol/L (22-29); Chloride 95 mmol/L (98-107); Estimated GFR 96; Glucose 114 mg/dL (70-105); Potassium 2.9 mmol/L (3.5-5.1); Sodium 128 mmol/L (136-145)
[2022-10-18] MEDS: Cyanocobalamin (Vitamin B-12) 1,000 MCG TAB PO SCH (20:54)
[2022-10-18] MEDS: Folic Acid 1 MG TAB PO SCH (20:59)
[2022-10-18] MEDS: Senokot S 8.6-50 MG TAB PO SCH (20:59)
[2022-10-19] MEDS: Promethazine HCl 12.5 MG in Sodium Chloride 0.9% 50 ML IVPB PRN ×2 (03:28→23:06)
[2022-10-19] MEDS: STERILE WATER IV SCH (05:18)
[2022-10-19] MEDS: ADMIXTURE FEE IV SCH (05:18)
[2022-10-19] MEDS: SODIUM CHLORIDE IV SCH (05:18)
[2022-10-19 08:26] LABS: Anion Gap 12 mmol/L (10-20); BUN (Urea Nitrogen) 5 mg/dL (9.8-20.1); Calc. Creatinine Clearance 77 mL/min (70-130); Carbon Dioxide 22 mmol/L (22-29); Chloride 98 mmol/L (98-107); Estimated GFR 101; Glucose 127 mg/dL (70-105); Magnesium 1.6 mg/dL (1.6-2.6); Sodium 128 mmol/L (136-145)
[2022-10-19] MEDS ORDERED: Magnesium Sulfate In Water 4 GM in Premix Bag 1 BAG IVPB SCH (09:00)
[2022-10-19] MEDS: Tacrolimus 0.5 MG CAP PO SCH ×2 (09:55→20:59)
[2022-10-19] MEDS: Losartan 25 MG TAB PO SCH (09:56)
[2022-10-19] MEDS: NIFEdipine XL 30 MG TAB PO SCH (09:58)
[2022-10-19] MEDS: Senokot S 8.6-50 MG TAB PO SCH ×2 (09:59→19:09)
[2022-10-19] MEDS: Cholecalciferol 1,000 UNITS (25 MCG) TAB PO SCH (09:59)
[2022-10-19] MEDS: Famotidine 20 MG TAB PO SCH (09:59)
[2022-10-19 10:02] LABS: Phosphorus 1.3 mg/dL (2.3-4.7)
[2022-10-19] MEDS ORDERED: Loperamide HCl 2 MG CAP PO PRN (10:04)
[2022-10-19] MEDS: Fioricet 325/50/40 mg Tablet PO PRN ×2 (10:54→16:46)
[2022-10-19] MEDS: Mycophenolate 250 MG CAP PO SCH ×2 (10:55→20:59)
[2022-10-19] MEDS ORDERED: SODIUM CHLORIDE IV SCH (10:56)
[2022-10-19] MEDS ORDERED: STERILE WATER IV SCH (10:56)
[2022-10-19] MEDS ORDERED: ADMIXTURE FEE IV SCH (10:56)
[2022-10-19] MEDS ORDERED: Potassium Phosphate 30 MMOL in Sodium Chloride 0.9% 250 ML 250 ML IVPB SCH (11:15)
[2022-10-19] MEDS: Ambisome 300 MG in Dextrose 5% in Water 250 ML IVPB SCH ×2 (15:00→18:00)
[2022-10-19 15:13] LABS: CMV DNA-PCR Test Negative (Negative)
[2022-10-19 16:37] LABS: Tacrolimus 8.8 ng/mL (2.0-20.0)
[2022-10-19 19:27] LABS: Anion Gap 10 mmol/L (10-20); BUN (Urea Nitrogen) 7 mg/dL (9.8-20.1); Calc. Creatinine Clearance 68 mL/min (70-130); Calcium 7.7 mg/dL (7.8-10.44); Carbon Dioxide 21 mmol/L (22-29); Chloride 99 mmol/L (98-107); Estimated GFR 86; Glucose 196 mg/dL (70-105); Potassium 3.3 mmol/L (3.5-5.1); Sodium 127 mmol/L (136-145)
[2022-10-19] MEDS ORDERED: Potassium Chloride 20 MEQ TAB PO SCH (20:15)
[2022-10-19] MEDS: Cyanocobalamin (Vitamin B-12) 1,000 MCG TAB PO SCH (20:59)
[2022-10-19] MEDS: Folic Acid 1 MG TAB PO SCH (20:59)
[2022-10-19] MEDS: Morphine 4 MG/ML VIAL SLOW IVP PRN (22:50)
[2022-10-20 08:08] LABS: #Basophils 0.2 thou/uL (0.0-0.2); #Eosinphils 0.2 thou/uL (0.0-0.7); #Neutrophils 7.3 thou/uL (1.40-6.50); %Basophils 1.7 % (0.0-1.0); %Eosinophils 2.4 % (0.0-10.0); %Lymphocytes 10.5 % (21.0-51.0); %Monocytes 10.1 % (0.0-10.0); %Neutrophils 75.2 % (42.0-75.0); Hemoglobin 10.9 g/dL (12.0-16.0); Mean Corpuscular HGB CONC 34.1 g/dL (32.0-36.0); Mean Corpuscular Hemoglobin 31.5 pg (27.0-31.0); Mean Corpuscular Volume 92.1 fl (78.0-98.0); Mean Platelet Volume 6.2 fL (7.4-10.4); Platelet Count 289 10x3/uL (130-400); RBC Distribution Width 12.4 % (11.5-14.5); Red Blood Cell (RBC) Count 3.45 mill/uL (4.20-5.40); White Blood Cell (WBC) Count 9.6 10x3/uL (4.8-10.8)
[2022-10-20 08:29] LABS: Anion Gap 9 mmol/L (10-20); BUN (Urea Nitrogen) 5 mg/dL (9.8-20.1); Calc. Creatinine Clearance 73 mL/min (70-130); Calcium 7.4 mg/dL (7.8-10.44); Carbon Dioxide 21 mmol/L (22-29); Chloride 101 mmol/L (98-107); Estimated GFR 95; Glucose 116 mg/dL (70-105); Magnesium 1.9 mg/dL (1.6-2.6); Potassium 3.3 mmol/L (3.5-5.1); Sodium 128 mmol/L (136-145)
[2022-10-20 08:32] LABS: Phosphorus 1.8 mg/dL (2.3-4.7)
[2022-10-20] MEDS: NIFEdipine XL 30 MG TAB PO SCH (09:51)
[2022-10-20] MEDS: Senokot S 8.6-50 MG TAB PO SCH ×2 (09:51→20:45)
[2022-10-20] MEDS: Famotidine 20 MG TAB PO SCH (09:52)
[2022-10-20] MEDS: Losartan 25 MG TAB PO SCH (09:52)
[2022-10-20] MEDS: Mycophenolate 250 MG CAP PO SCH ×2 (09:52→20:43)
[2022-10-20] MEDS: Cholecalciferol 1,000 UNITS (25 MCG) TAB PO SCH (09:52)
[2022-10-20] MEDS: Fioricet 325/50/40 mg Tablet PO PRN ×2 (09:52→18:53)
[2022-10-20] MEDS: Tacrolimus 0.5 MG CAP PO SCH ×2 (09:55→20:44)
[2022-10-20] MEDS ORDERED: Potassium Chloride 20 MEQ TAB PO SCH (12:15)
[2022-10-20] MEDS ORDERED: Magnesium 2 GM/50 ML(in water) 2 GM in Premix Bag 1 BAG IVPB SCH (12:15)
[2022-10-20] MEDS: Ambisome 300 MG in Dextrose 5% in Water 250 ML IVPB SCH (16:41)
[2022-10-20] MEDS: DEXTROSE 5% FS SCH ×2 (16:41→19:37)
[2022-10-20] MEDS: PRE FILLED FS SCH ×2 (16:41→19:37)
[2022-10-20] MEDS: WATER FS SCH ×2 (16:41→19:37)
[2022-10-20] MEDS: PHOS-NAK 1 PKT PACK PO SCH ×2 (16:42→20:46)
[2022-10-20] MEDS: Folic Acid 1 MG TAB PO SCH (20:43)
[2022-10-20] MEDS: Cyanocobalamin (Vitamin B-12) 1,000 MCG TAB PO SCH (20:43)
[2022-10-21] MEDS: Promethazine HCl 12.5 MG in Sodium Chloride 0.9% 50 ML IVPB PRN (01:42)
[2022-10-21 07:03] LABS: #Eosinphils 0.2 thou/uL (0.0-0.7); #Lymphocytes 1.1 thou/uL (1.20-3.40); #Monocytes 0.8 thou/uL (0.11-0.59); #Neutrophils 6.9 thou/uL (1.40-6.50); %Lymphocytes 12.3 % (21.0-51.0); %Monocytes 8.6 % (0.0-10.0); %Neutrophils 77.1 % (42.0-75.0); Hemoglobin 11.5 g/dL (12.0-16.0); Mean Corpuscular HGB CONC 36.3 g/dL (32.0-36.0); Mean Corpuscular Hemoglobin 33.5 pg (27.0-31.0); Mean Corpuscular Volume 92.2 fl (78.0-98.0); Mean Platelet Volume 6.4 fL (7.4-10.4); Platelet Count 295 10x3/uL (130-400); RBC Distribution Width 12.5 % (11.5-14.5); Red Blood Cell (RBC) Count 3.45 mill/uL (4.20-5.40); White Blood Cell (WBC) Count 8.9 10x3/uL (4.8-10.8)
[2022-10-21 07:25] LABS: Phosphorus 1.8 mg/dL (2.3-4.7)
[2022-10-21 07:27] LABS: Anion Gap 11 mmol/L (10-20); BUN (Urea Nitrogen) 5 mg/dL (9.8-20.1); Calc. Creatinine Clearance 77 mL/min (70-130); Calcium 7.8 mg/dL (7.8-10.44); Carbon Dioxide 21 mmol/L (22-29); Chloride 100 mmol/L (98-107); Estimated GFR 101; Glucose 121 mg/dL (70-105); Magnesium 1.9 mg/dL (1.6-2.6); Potassium 3.4 mmol/L (3.5-5.1); Sodium 129 mmol/L (136-145)
[2022-10-21] MEDS ORDERED: Magnesium 2 GM/50 ML(in water) 2 GM in Premix Bag 1 BAG IVPB SCH (08:30)
[2022-10-21] MEDS ORDERED: Potassium Chloride 20 MEQ TAB PO SCH (08:30)
[2022-10-21] MEDS: STERILE WATER IV SCH ×2 (09:46→22:07)
[2022-10-21] MEDS: ADMIXTURE FEE IV SCH ×2 (09:46→22:07)
[2022-10-21] MEDS: SODIUM CHLORIDE IV SCH ×2 (09:46→22:07)
[2022-10-21] MEDS: PHOS-NAK 1 PKT PACK PO SCH ×2 (09:47→12:43)
[2022-10-21] MEDS: Tacrolimus 0.5 MG CAP PO SCH ×2 (09:51→20:25)
[2022-10-21] MEDS: NIFEdipine XL 30 MG TAB PO SCH (09:52)
[2022-10-21] MEDS: Cholecalciferol 1,000 UNITS (25 MCG) TAB PO SCH (09:53)
[2022-10-21] MEDS: Mycophenolate 250 MG CAP PO SCH ×2 (09:53→20:24)
[2022-10-21] MEDS: Losartan 25 MG TAB PO SCH (09:53)
[2022-10-21] MEDS: Famotidine 20 MG TAB PO SCH (09:54)
[2022-10-21] MEDS: Senokot S 8.6-50 MG TAB PO SCH ×2 (12:32→20:24)
[2022-10-21] MEDS: Acetaminophen 325 MG TAB PO PRN ×2 (15:09→22:03)
[2022-10-21 16:13] LABS: QuantiFERON-TB Gold Plus Negative (Negative)
[2022-10-21] MEDS: SUMAtriptan Succinate 6 MG/0.5 ML VIAL SC PRN ×2 (16:50→22:02)
[2022-10-21] MEDS: DEXTROSE 5% FS SCH ×2 (18:00→20:18)
[2022-10-21] MEDS: PRE FILLED FS SCH ×2 (18:00→20:18)
[2022-10-21] MEDS: WATER FS SCH ×2 (18:00→20:18)
[2022-10-21] MEDS: Ambisome 300 MG in Dextrose 5% in Water 250 ML IVPB SCH (18:03)
[2022-10-21 20:15] LABS: Anion Gap 11 mmol/L (10-20); BUN (Urea Nitrogen) 5 mg/dL (9.8-20.1); Calc. Creatinine Clearance 65 mL/min (70-130); Calcium 8.5 mg/dL (7.8-10.44); Carbon Dioxide 20 mmol/L (22-29); Chloride 103 mmol/L (98-107); Estimated GFR 83; Glucose 139 mg/dL (70-105); Potassium 3.6 mmol/L (3.5-5.1); Sodium 130 mmol/L (136-145)
[2022-10-21] MEDS: Folic Acid 1 MG TAB PO SCH (20:23)
[2022-10-21] MEDS: Cyanocobalamin (Vitamin B-12) 1,000 MCG TAB PO SCH (20:24)
[2022-10-22] MEDS: ADMIXTURE FEE IV SCH ×2 (04:52→15:22)
[2022-10-22] MEDS: STERILE WATER IV SCH ×2 (04:52→15:22)
[2022-10-22] MEDS: SODIUM CHLORIDE IV SCH ×2 (04:52→15:22)
[2022-10-22] MEDS: Promethazine HCl 12.5 MG in Sodium Chloride 0.9% 50 ML IVPB PRN (05:17)
[2022-10-22 06:23] LABS: #Eosinphils 0.2 thou/uL (0.0-0.7); #Lymphocytes 0.7 thou/uL (1.20-3.40); #Monocytes 0.8 thou/uL (0.11-0.59); #Neutrophils 6.1 thou/uL (1.40-6.50); %Basophils 0.5 % (0.0-1.0); %Eosinophils 2.5 % (0.0-10.0); %Lymphocytes 9.5 % (21.0-51.0); %Monocytes 9.6 % (0.0-10.0); %Neutrophils 77.9 % (42.0-75.0); Hemoglobin 11.6 g/dL (12.0-16.0); Mean Corpuscular HGB CONC 33.2 g/dL (32.0-36.0); Mean Corpuscular Hemoglobin 31.3 pg (27.0-31.0); Mean Corpuscular Volume 94.3 fl (78.0-98.0); Mean Platelet Volume 6.4 fL (7.4-10.4); Platelet Count 306 10x3/uL (130-400); RBC Distribution Width 12.8 % (11.5-14.5); Red Blood Cell (RBC) Count 3.72 mill/uL (4.20-5.40); White Blood Cell (WBC) Count 7.8 10x3/uL (4.8-10.8)
[2022-10-22 06:44] LABS: Anion Gap 10 mmol/L (10-20); BUN (Urea Nitrogen) 5 mg/dL (9.8-20.1); Calc. Creatinine Clearance 69 mL/min (70-130); Calcium 8.2 mg/dL (7.8-10.44); Carbon Dioxide 20 mmol/L (22-29); Chloride 106 mmol/L (98-107); Estimated GFR 88; Glucose 130 mg/dL (70-105); Magnesium 1.8 mg/dL (1.6-2.6); Phosphorus 1.9 mg/dL (2.3-4.7); Potassium 3.3 mmol/L (3.5-5.1); Sodium 133 mmol/L (136-145)
[2022-10-22] MEDS ORDERED: Magnesium 2 GM/50 ML(in water) 2 GM in Premix Bag 1 BAG IVPB SCH (08:00)
[2022-10-22] MEDS ORDERED: Potassium Chloride 20 MEQ TAB PO SCH (08:00)
[2022-10-22] MEDS: PHOS-NAK 1 PKT PACK PO SCH ×2 (09:43→12:48)
[2022-10-22] MEDS: Cholecalciferol 1,000 UNITS (25 MCG) TAB PO SCH (09:44)
[2022-10-22] MEDS: Famotidine 20 MG TAB PO SCH (09:44)
[2022-10-22] MEDS: Losartan 25 MG TAB PO SCH (09:45)
[2022-10-22] MEDS: Tacrolimus 0.5 MG CAP PO SCH ×2 (09:48→21:25)
[2022-10-22] MEDS: NIFEdipine XL 30 MG TAB PO SCH (09:49)
[2022-10-22] MEDS: Senokot S 8.6-50 MG TAB PO SCH ×2 (09:49→21:24)
[2022-10-22] MEDS: Acetaminophen 325 MG TAB PO PRN ×4 (09:50→22:47)
[2022-10-22] MEDS: Morphine 4 MG/ML VIAL SLOW IVP PRN ×3 (09:50→22:47)
[2022-10-22] MEDS: Mycophenolate 250 MG CAP PO SCH ×2 (09:50→21:24)
[2022-10-22] MEDS: Ambisome 300 MG in Dextrose 5% in Water 250 ML IVPB SCH (18:30)
[2022-10-22] MEDS: WATER FS SCH ×2 (18:32→21:25)
[2022-10-22] MEDS: DEXTROSE 5% FS SCH ×2 (18:32→21:25)
[2022-10-22] MEDS: PRE FILLED FS SCH ×2 (18:32→21:25)
[2022-10-22] MEDS: Cyanocobalamin (Vitamin B-12) 1,000 MCG TAB PO SCH (21:23)
[2022-10-22] MEDS: Folic Acid 1 MG TAB PO SCH (21:23)
[2022-10-23] MEDS: STERILE WATER IV SCH ×2 (01:48→23:50)
[2022-10-23] MEDS: ADMIXTURE FEE IV SCH ×2 (01:48→23:50)
[2022-10-23] MEDS: SODIUM CHLORIDE IV SCH ×2 (01:48→23:50)
[2022-10-23] MEDS: Promethazine HCl 12.5 MG in Sodium Chloride 0.9% 50 ML IVPB PRN ×3 (04:59→22:07)
[2022-10-23] MEDS: Morphine 4 MG/ML VIAL SLOW IVP PRN ×5 (05:03→21:41)
[2022-10-23 06:43] LABS: #Eosinphils 0.1 thou/uL (0.0-0.7); #Lymphocytes 0.5 thou/uL (1.20-3.40); #Monocytes 0.5 thou/uL (0.11-0.59); #Neutrophils 6.7 thou/uL (1.40-6.50); %Lymphocytes 6.8 % (21.0-51.0); %Monocytes 5.9 % (0.0-10.0); %Neutrophils 86.3 % (42.0-75.0); Hemoglobin 11.7 g/dL (12.0-16.0); Mean Corpuscular HGB CONC 34.8 g/dL (32.0-36.0); Mean Corpuscular Hemoglobin 32.3 pg (27.0-31.0); Mean Corpuscular Volume 92.7 fl (78.0-98.0); Mean Platelet Volume 6.2 fL (7.4-10.4); Platelet Count 331 10x3/uL (130-400); RBC Distribution Width 12.8 % (11.5-14.5); Red Blood Cell (RBC) Count 3.63 mill/uL (4.20-5.40); White Blood Cell (WBC) Count 7.7 10x3/uL (4.8-10.8)
[2022-10-23 07:18] LABS: Anion Gap 10 mmol/L (10-20); BUN (Urea Nitrogen) 5 mg/dL (9.8-20.1); Calc. Creatinine Clearance 74 mL/min (70-130); Calcium 8.5 mg/dL (7.8-10.44); Carbon Dioxide 22 mmol/L (22-29); Chloride 107 mmol/L (98-107); Estimated GFR 98; Glucose 147 mg/dL (70-105); Magnesium 1.8 mg/dL (1.6-2.6); Phosphorus 2.4 mg/dL (2.3-4.7); Potassium 3.3 mmol/L (3.5-5.1); Sodium 136 mmol/L (136-145)
[2022-10-23] MEDS ORDERED: Potassium Chloride 20 MEQ TAB PO SCH (08:00)
[2022-10-23] MEDS ORDERED: Magnesium 2 GM/50 ML(in water) 2 GM in Premix Bag 1 BAG IVPB SCH (08:00)
[2022-10-23 09:15] LABS: Tacrolimus 3.2 ng/mL (2.0-20.0)
[2022-10-23] MEDS: Ondansetron PF 4 MG/2 ML Vial IVP PRN ×2 (09:35→17:41)
[2022-10-23] MEDS: Tacrolimus 0.5 MG CAP PO SCH ×2 (10:24→22:09)
[2022-10-23] MEDS: Mycophenolate 250 MG CAP PO SCH ×2 (10:25→22:08)
[2022-10-23] MEDS: Famotidine 20 MG TAB PO SCH (10:28)
[2022-10-23] MEDS: NIFEdipine XL 30 MG TAB PO SCH (10:28)
[2022-10-23] MEDS: Losartan 25 MG TAB PO SCH (10:28)
[2022-10-23] MEDS: Cholecalciferol 1,000 UNITS (25 MCG) TAB PO SCH (10:28)
[2022-10-23] MEDS: Senokot S 8.6-50 MG TAB PO SCH ×2 (10:42→22:09)
[2022-10-23 12:15] LABS: Yeast Identification Final report (.)
[2022-10-23] MEDS: Ambisome 300 MG in Dextrose 5% in Water 250 ML IVPB SCH (18:20)
[2022-10-23] MEDS: PRE FILLED FS SCH ×2 (18:20)
[2022-10-23] MEDS: WATER FS SCH ×2 (18:20)
[2022-10-23] MEDS: DEXTROSE 5% FS SCH ×2 (18:20)
[2022-10-23] MEDS ORDERED: WATER FS SCH (21:00)
[2022-10-23] MEDS ORDERED: PRE FILLED FS SCH (21:00)
[2022-10-23] MEDS ORDERED: DEXTROSE 5% FS SCH (21:00)
[2022-10-23] MEDS: Cyanocobalamin (Vitamin B-12) 1,000 MCG TAB PO SCH (22:08)
[2022-10-23] MEDS: Folic Acid 1 MG TAB PO SCH (22:08)
[2022-10-24] MEDS: Morphine 4 MG/ML VIAL SLOW IVP PRN ×5 (02:50→21:17)
[2022-10-24] MEDS: Ondansetron PF 4 MG/2 ML Vial IVP PRN ×2 (02:50→14:39)
[2022-10-24 06:36] LABS: #Eosinphils 0.1 thou/uL (0.0-0.7); #Lymphocytes 0.8 thou/uL (1.20-3.40); #Monocytes 0.5 thou/uL (0.11-0.59); #Neutrophils 5.6 thou/uL (1.40-6.50); %Basophils 0.2 % (0.0-1.0); %Eosinophils 1.9 % (0.0-10.0); %Lymphocytes 11.4 % (21.0-51.0); %Monocytes 6.8 % (0.0-10.0); %Neutrophils 79.7 % (42.0-75.0); Hemoglobin 10.7 g/dL (12.0-16.0); Mean Corpuscular HGB CONC 34.1 g/dL (32.0-36.0); Mean Corpuscular Hemoglobin 31.3 pg (27.0-31.0); Mean Corpuscular Volume 91.8 fl (78.0-98.0); Mean Platelet Volume 6.2 fL (7.4-10.4); Platelet Count 328 10x3/uL (130-400); RBC Distribution Width 12.9 % (11.5-14.5); Red Blood Cell (RBC) Count 3.43 mill/uL (4.20-5.40)
[2022-10-24] MEDS: SODIUM CHLORIDE IV SCH ×2 (06:55→17:12)
[2022-10-24] MEDS: ADMIXTURE FEE IV SCH ×2 (06:55→17:12)
[2022-10-24] MEDS: STERILE WATER IV SCH ×2 (06:55→17:12)
[2022-10-24] MEDS: Acetaminophen 325 MG TAB PO PRN ×2 (06:55→20:11)
[2022-10-24 07:02] LABS: Anion Gap 11 mmol/L (10-20); BUN (Urea Nitrogen) 5 mg/dL (9.8-20.1); Calc. Creatinine Clearance 68 mL/min (70-130); Calcium 8.4 mg/dL (7.8-10.44); Carbon Dioxide 21 mmol/L (22-29); Chloride 104 mmol/L (98-107); Estimated GFR 89; Glucose 121 mg/dL (70-105); Potassium 3.3 mmol/L (3.5-5.1); Sodium 133 mmol/L (136-145)
[2022-10-24] MEDS ORDERED: Potassium Chloride 20 MEQ TAB PO SCH ×2 (08:00→23:00)
[2022-10-24] MEDS: NIFEdipine XL 30 MG TAB PO SCH (08:55)
[2022-10-24] MEDS: Tacrolimus 0.5 MG CAP PO SCH ×2 (08:55→20:11)
[2022-10-24] MEDS: Losartan 25 MG TAB PO SCH (08:56)
[2022-10-24] MEDS: Famotidine 20 MG TAB PO SCH (08:57)
[2022-10-24] MEDS: Senokot S 8.6-50 MG TAB PO SCH ×2 (08:57→20:11)
[2022-10-24] MEDS: Mycophenolate 250 MG CAP PO SCH ×2 (08:57→20:11)
[2022-10-24] MEDS: Cholecalciferol 1,000 UNITS (25 MCG) TAB PO SCH (08:57)
[2022-10-24] MEDS: Ambisome 300 MG in Dextrose 5% in Water 250 ML IVPB SCH (17:13)
[2022-10-24] MEDS: PRE FILLED FS SCH ×2 (17:13→20:10)
[2022-10-24] MEDS: WATER FS SCH ×2 (17:13→20:10)
[2022-10-24] MEDS: DEXTROSE 5% FS SCH ×2 (17:13→20:10)
[2022-10-24] MEDS: Folic Acid 1 MG TAB PO SCH (20:11)
[2022-10-24] MEDS: Cyanocobalamin (Vitamin B-12) 1,000 MCG TAB PO SCH (20:11)
[2022-10-25] MEDS: Acetaminophen 325 MG TAB PO PRN ×2 (03:42→08:20)
[2022-10-25] MEDS: Ondansetron PF 4 MG/2 ML Vial IVP PRN (03:42)
[2022-10-25] MEDS: SODIUM CHLORIDE IV SCH ×2 (05:42→15:17)
[2022-10-25] MEDS: STERILE WATER IV SCH ×2 (05:42→15:17)
[2022-10-25] MEDS: ADMIXTURE FEE IV SCH ×2 (05:42→15:17)
[2022-10-25 06:05] LABS: #Eosinphils 0.2 thou/uL (0.0-0.7); #Monocytes 0.5 thou/uL (0.11-0.59); #Neutrophils 5.5 thou/uL (1.40-6.50); %Lymphocytes 14.4 % (21.0-51.0); %Monocytes 6.8 % (0.0-10.0); %Neutrophils 75.8 % (42.0-75.0); Hemoglobin 11.5 g/dL (12.0-16.0); Mean Corpuscular HGB CONC 33.9 g/dL (32.0-36.0); Mean Corpuscular Hemoglobin 31.3 pg (27.0-31.0); Mean Corpuscular Volume 92.1 fl (78.0-98.0); Mean Platelet Volume 6.1 fL (7.4-10.4); Platelet Count 336 10x3/uL (130-400); Red Blood Cell (RBC) Count 3.69 mill/uL (4.20-5.40); White Blood Cell (WBC) Count 7.2 10x3/uL (4.8-10.8)
[2022-10-25 06:16] LABS: Anion Gap 14 mmol/L (10-20); BUN (Urea Nitrogen) 5 mg/dL (9.8-20.1); Calc. Creatinine Clearance 51 mL/min (70-130); Calcium 8.5 mg/dL (7.8-10.44); Carbon Dioxide 19 mmol/L (22-29); Chloride 107 mmol/L (98-107); Estimated GFR 74; Glucose 125 mg/dL (70-105); Potassium 3.5 mmol/L (3.5-5.1); Sodium 136 mmol/L (136-145)
[2022-10-25] MEDS ORDERED: Potassium Chloride 20 MEQ TAB PO SCH (08:00)
[2022-10-25] MEDS: NIFEdipine XL 30 MG TAB PO SCH (08:21)
[2022-10-25] MEDS: Losartan 25 MG TAB PO SCH (08:21)
[2022-10-25] MEDS: Famotidine 20 MG TAB PO SCH (08:22)
[2022-10-25] MEDS: Mycophenolate 250 MG CAP PO SCH (08:22)
[2022-10-25] MEDS: Cholecalciferol 1,000 UNITS (25 MCG) TAB PO SCH (08:22)
[2022-10-25] MEDS: Senokot S 8.6-50 MG TAB PO SCH ×2 (08:22→20:19)
[2022-10-25] MEDS: Tacrolimus 0.5 MG CAP PO SCH ×2 (08:23→20:19)
[2022-10-25] MEDS: Morphine 4 MG/ML VIAL SLOW IVP PRN ×3 (10:30→20:21)
[2022-10-25] MEDS: PRE FILLED FS SCH ×2 (16:47→19:34)
[2022-10-25] MEDS: WATER FS SCH ×2 (16:47→19:34)
[2022-10-25] MEDS: DEXTROSE 5% FS SCH ×2 (16:47→19:34)
[2022-10-25] MEDS: Ambisome 300 MG in Dextrose 5% in Water 250 ML IVPB SCH (16:47)
[2022-10-25] MEDS: Cyanocobalamin (Vitamin B-12) 1,000 MCG TAB PO SCH (20:18)
[2022-10-25] MEDS: Folic Acid 1 MG TAB PO SCH (20:19)
[2022-10-26] MEDS: ADMIXTURE FEE IV SCH (05:07)
[2022-10-26] MEDS: SODIUM CHLORIDE IV SCH (05:07)
[2022-10-26] MEDS: STERILE WATER IV SCH (05:07)
[2022-10-26 06:08] LABS: #Eosinphils 0.2 thou/uL (0.0-0.7); #Lymphocytes 0.8 thou/uL (1.20-3.40); #Monocytes 0.5 thou/uL (0.11-0.59); #Neutrophils 5.9 thou/uL (1.40-6.50); %Basophils 0.3 % (0.0-1.0); %Eosinophils 2.2 % (0.0-10.0); %Lymphocytes 11.1 % (21.0-51.0); %Monocytes 6.6 % (0.0-10.0); %Neutrophils 79.7 % (42.0-75.0); Hemoglobin 10.8 g/dL (12.0-16.0); Mean Corpuscular HGB CONC 35.1 g/dL (32.0-36.0); Mean Corpuscular Hemoglobin 31.8 pg (27.0-31.0); Mean Corpuscular Volume 90.7 fl (78.0-98.0); Platelet Count 308 10x3/uL (130-400); RBC Distribution Width 13.1 % (11.5-14.5); White Blood Cell (WBC) Count 7.4 10x3/uL (4.8-10.8)
[2022-10-26 06:35] LABS: Anion Gap 11 mmol/L (10-20); BUN (Urea Nitrogen) 7 mg/dL (9.8-20.1); Calc. Creatinine Clearance 54 mL/min (70-130); Calcium 8.3 mg/dL (7.8-10.44); Carbon Dioxide 19 mmol/L (22-29); Chloride 106 mmol/L (98-107); Estimated GFR 78; Glucose 150 mg/dL (70-105); Potassium 3.2 mmol/L (3.5-5.1); Sodium 133 mmol/L (136-145)
[2022-10-26] MEDS ORDERED: Potassium Chloride 20 MEQ TAB PO SCH (08:00)
[2022-10-26] MEDS: Tacrolimus 0.5 MG CAP PO SCH ×2 (09:04→20:08)
[2022-10-26] MEDS: Senokot S 8.6-50 MG TAB PO SCH ×2 (09:04→20:21)
[2022-10-26] MEDS: Cholecalciferol 1,000 UNITS (25 MCG) TAB PO SCH (09:05)
[2022-10-26] MEDS: Famotidine 20 MG TAB PO SCH (09:05)
[2022-10-26] MEDS: NIFEdipine XL 30 MG TAB PO SCH (09:05)
[2022-10-26] MEDS: Ondansetron PF 4 MG/2 ML Vial IVP PRN (10:13)
[2022-10-26] MEDS: Morphine 4 MG/ML VIAL SLOW IVP PRN ×2 (13:37→20:08)
[2022-10-26 13:40] LABS: Potassium 3.6 mmol/L (3.5-5.1)
[2022-10-26] MEDS: Acetaminophen 325 MG TAB PO PRN ×2 (14:37→20:09)
[2022-10-26] MEDS: Sodium Chloride 256.5 MEQ in Sterile Water Injection 936 ML IV SCH (18:31)
[2022-10-26] MEDS: Cyanocobalamin (Vitamin B-12) 1,000 MCG TAB PO SCH (20:09)
[2022-10-26] MEDS: Folic Acid 1 MG TAB PO SCH (20:09)
[2022-10-26] MEDS: PRE FILLED FS SCH (23:31)
[2022-10-26] MEDS: WATER FS SCH (23:31)
[2022-10-26] MEDS: DEXTROSE 5% FS SCH (23:31)
[2022-10-26] MEDS: Ambisome 300 MG in Dextrose 5% in Water 250 ML IVPB SCH (23:33)
[2022-10-27] MEDS: DEXTROSE 5% FS SCH ×3 (02:23→19:58)
[2022-10-27] MEDS: WATER FS SCH ×3 (02:23→19:58)
[2022-10-27] MEDS: PRE FILLED FS SCH ×3 (02:23→19:58)
[2022-10-27] MEDS: Morphine 4 MG/ML VIAL SLOW IVP PRN ×3 (02:25→19:59)
[2022-10-27] MEDS: Acetaminophen 325 MG TAB PO PRN ×2 (05:51→16:35)
[2022-10-27 06:35] LABS: #Eosinphils 0.2 thou/uL (0.0-0.7); #Monocytes 0.4 thou/uL (0.11-0.59); #Neutrophils 5.9 thou/uL (1.40-6.50); %Basophils 0.3 % (0.0-1.0); %Eosinophils 2.6 % (0.0-10.0); %Lymphocytes 12.8 % (21.0-51.0); %Monocytes 5.7 % (0.0-10.0); %Neutrophils 78.6 % (42.0-75.0); Hemoglobin 10.8 g/dL (12.0-16.0); Mean Corpuscular HGB CONC 34.6 g/dL (32.0-36.0); Mean Corpuscular Hemoglobin 31.7 pg (27.0-31.0); Mean Corpuscular Volume 91.6 fl (78.0-98.0); Mean Platelet Volume 6.2 fL (7.4-10.4); Platelet Count 332 10x3/uL (130-400); RBC Distribution Width 13.2 % (11.5-14.5); Red Blood Cell (RBC) Count 3.42 mill/uL (4.20-5.40); White Blood Cell (WBC) Count 7.5 10x3/uL (4.8-10.8)
[2022-10-27 06:52] LABS: Anion Gap 14 mmol/L (10-20); BUN (Urea Nitrogen) 6 mg/dL (9.8-20.1); Calc. Creatinine Clearance 55 mL/min (70-130); Calcium 8.2 mg/dL (7.8-10.44); Carbon Dioxide 20 mmol/L (22-29); Chloride 106 mmol/L (98-107); Estimated GFR 82; Glucose 110 mg/dL (70-105); Potassium 3.6 mmol/L (3.5-5.1); Sodium 136 mmol/L (136-145)
[2022-10-27] MEDS: Tacrolimus 0.5 MG CAP PO SCH ×2 (08:20→20:13)
[2022-10-27] MEDS: Famotidine 20 MG TAB PO SCH (08:20)
[2022-10-27] MEDS: NIFEdipine XL 30 MG TAB PO SCH (08:20)
[2022-10-27] MEDS: Cholecalciferol 1,000 UNITS (25 MCG) TAB PO SCH (08:20)
[2022-10-27] MEDS: Senokot S 8.6-50 MG TAB PO SCH ×2 (08:24→20:13)
[2022-10-27] MEDS: Sodium Chloride 256.5 MEQ in Sterile Water Injection 936 ML IV SCH (11:32)
[2022-10-27] MEDS: Ondansetron PF 4 MG/2 ML Vial IVP PRN (15:11)
[2022-10-27] MEDS: Ambisome 300 MG in Dextrose 5% in Water 250 ML IVPB SCH (17:37)
[2022-10-27] MEDS: Folic Acid 1 MG TAB PO SCH (20:13)
[2022-10-27] MEDS: Cyanocobalamin (Vitamin B-12) 1,000 MCG TAB PO SCH (20:13)
[2022-10-28 05:53] LABS: #Eosinphils 0.2 thou/uL (0.0-0.7); #Lymphocytes 0.9 thou/uL (1.20-3.40); #Monocytes 0.4 thou/uL (0.11-0.59); #Neutrophils 5.8 thou/uL (1.40-6.50); %Basophils 0.4 % (0.0-1.0); %Eosinophils 2.4 % (0.0-10.0); %Lymphocytes 11.9 % (21.0-51.0); %Monocytes 5.9 % (0.0-10.0); %Neutrophils 79.5 % (42.0-75.0); Hemoglobin 10.7 g/dL (12.0-16.0); Mean Corpuscular HGB CONC 34.7 g/dL (32.0-36.0); Mean Corpuscular Hemoglobin 31.5 pg (27.0-31.0); Mean Corpuscular Volume 90.9 fl (78.0-98.0); Mean Platelet Volume 6.1 fL (7.4-10.4); Platelet Count 306 10x3/uL (130-400); RBC Distribution Width 13.2 % (11.5-14.5); Red Blood Cell (RBC) Count 3.39 mill/uL (4.20-5.40); White Blood Cell (WBC) Count 7.3 10x3/uL (4.8-10.8)
[2022-10-28 06:28] LABS: Anion Gap 13 mmol/L (10-20); BUN (Urea Nitrogen) 7 mg/dL (9.8-20.1); Calc. Creatinine Clearance 46 mL/min (70-130); Calcium 8.6 mg/dL (7.8-10.44); Carbon Dioxide 20 mmol/L (22-29); Chloride 106 mmol/L (98-107); Estimated GFR 65; Glucose 105 mg/dL (70-105); Potassium 2.9 mmol/L (3.5-5.1); Sodium 136 mmol/L (136-145)
[2022-10-28] MEDS: Cholecalciferol 1,000 UNITS (25 MCG) TAB PO SCH (08:28)
[2022-10-28] MEDS: Potassium Chloride 20 MEQ TAB PO SCH ×2 (08:28→11:16)
[2022-10-28] MEDS: NIFEdipine XL 30 MG TAB PO SCH (08:28)
[2022-10-28] MEDS: Famotidine 20 MG TAB PO SCH (08:28)
[2022-10-28] MEDS: Senokot S 8.6-50 MG TAB PO SCH ×3 (08:29→20:35)
[2022-10-28 09:00] LABS: Bilirubin Negative (Negative); Blood, Urine Negative (Negative); Clarity Clear (Clear); Glucose, Urine (Dipstick) Normal (Negative); Ketone, Urine Negative (Negative); Leukocyte Negative Leu/uL (Negative); Nitrite Negative (Negative); Protein, Urine (Dipstick) Negative (Neg-Trace); RBC/HPF 0-3 HPF (0-3); Specific Gravity, Urine 1.006 (1.002-1.036); Squamous Epithelial 0-3 HPF (0-3); Urobilinogen Normal mg/dL (Less than 2); pH, Urine 6.5 (5.0-9.0)
[2022-10-28 09:06] LABS: Bacteria/HPF 1+ HPF (None Seen)
[2022-10-28] MEDS: Sodium Chloride 256.5 MEQ in Sterile Water Injection 936 ML IV SCH (09:35)
[2022-10-28] MEDS: Tacrolimus 1 MG CAP PO SCH ×2 (09:35→20:34)
[2022-10-28] MEDS: Acetaminophen 325 MG TAB PO PRN ×2 (10:12→16:20)
[2022-10-28] MEDS: AMBISOME IVPB SCH (16:13)
[2022-10-28] MEDS: WATER IVPB SCH (16:13)
[2022-10-28] MEDS: DEXTROSE 5% IVPB SCH (16:13)
[2022-10-28] MEDS: DEXTROSE 5% FS SCH ×2 (16:14→18:21)
[2022-10-28] MEDS: PRE FILLED FS SCH ×2 (16:14→18:21)
[2022-10-28] MEDS: WATER FS SCH ×2 (16:14→18:21)
[2022-10-28] MEDS: Morphine 4 MG/ML VIAL SLOW IVP PRN (18:20)
[2022-10-28] MEDS: Folic Acid 1 MG TAB PO SCH (20:34)
[2022-10-28] MEDS: Acetaminophen 500 MG TAB PO SCH (20:34)
[2022-10-28] MEDS: Tacrolimus 0.5 MG CAP PO SCH (20:34)
[2022-10-28] MEDS: Cyanocobalamin (Vitamin B-12) 1,000 MCG TAB PO SCH (20:34)
[2022-10-29 06:04] LABS: #Eosinphils 0.2 thou/uL (0.0-0.7); #Lymphocytes 0.8 thou/uL (1.20-3.40); #Monocytes 0.5 thou/uL (0.11-0.59); #Neutrophils 5.8 thou/uL (1.40-6.50); %Basophils 0.6 % (0.0-1.0); %Eosinophils 2.7 % (0.0-10.0); %Lymphocytes 10.7 % (21.0-51.0); %Monocytes 6.5 % (0.0-10.0); %Neutrophils 79.5 % (42.0-75.0); Hemoglobin 10.7 g/dL (12.0-16.0); Mean Corpuscular HGB CONC 34.8 g/dL (32.0-36.0); Mean Corpuscular Hemoglobin 32.3 pg (27.0-31.0); Mean Corpuscular Volume 92.7 fl (78.0-98.0); Mean Platelet Volume 5.8 fL (7.4-10.4); Platelet Count 315 10x3/uL (130-400); RBC Distribution Width 13.3 % (11.5-14.5); White Blood Cell (WBC) Count 7.2 10x3/uL (4.8-10.8)
[2022-10-29 06:26] LABS: Anion Gap 11 mmol/L (10-20); BUN (Urea Nitrogen) 8 mg/dL (9.8-20.1); Calc. Creatinine Clearance 44 mL/min (70-130); Calcium 8.4 mg/dL (7.8-10.44); Carbon Dioxide 23 mmol/L (22-29); Chloride 108 mmol/L (98-107); Estimated GFR 63; Glucose 116 mg/dL (70-105); Potassium 3.4 mmol/L (3.5-5.1); Sodium 139 mmol/L (136-145)
[2022-10-29] MEDS: Sodium Chloride 256.5 MEQ in Sterile Water Injection 936 ML IV SCH ×2 (06:51→19:32)
[2022-10-29] MEDS ORDERED: Potassium Chloride 20 MEQ TAB PO SCH (08:00)
[2022-10-29] MEDS: Ondansetron PF 4 MG/2 ML Vial IVP PRN (08:15)
[2022-10-29] MEDS: NIFEdipine XL 30 MG TAB PO SCH (08:20)
[2022-10-29] MEDS: Cholecalciferol 1,000 UNITS (25 MCG) TAB PO SCH (08:20)
[2022-10-29] MEDS: Acetaminophen 500 MG TAB PO SCH ×3 (08:20→21:35)
[2022-10-29] MEDS: Famotidine 20 MG TAB PO SCH (08:20)
[2022-10-29] MEDS: Senokot S 8.6-50 MG TAB PO SCH ×2 (08:21→21:34)
[2022-10-29] MEDS: Tacrolimus 1 MG CAP PO SCH ×2 (08:59→21:36)
[2022-10-29] MEDS: PRE FILLED FS SCH ×2 (17:11→19:16)
[2022-10-29] MEDS: WATER FS SCH ×2 (17:11→19:16)
[2022-10-29] MEDS: DEXTROSE 5% FS SCH ×2 (17:11→19:16)
[2022-10-29] MEDS: DEXTROSE 5% IVPB SCH (17:12)
[2022-10-29] MEDS: AMBISOME IVPB SCH (17:12)
[2022-10-29] MEDS: WATER IVPB SCH (17:12)
[2022-10-29] MEDS: Morphine 4 MG/ML VIAL SLOW IVP PRN (19:17)
[2022-10-29] MEDS: Cyanocobalamin (Vitamin B-12) 1,000 MCG TAB PO SCH (21:35)
[2022-10-29] MEDS: Folic Acid 1 MG TAB PO SCH (21:35)
[2022-10-29] MEDS: Tacrolimus 0.5 MG CAP PO SCH (21:36)
[2022-10-30 07:38] LABS: #Eosinphils 0.2 thou/uL (0.0-0.7); #Lymphocytes 1.1 thou/uL (1.20-3.40); #Monocytes 0.6 thou/uL (0.11-0.59); #Neutrophils 6.3 thou/uL (1.40-6.50); %Basophils 0.6 % (0.0-1.0); %Eosinophils 2.3 % (0.0-10.0); %Lymphocytes 13.6 % (21.0-51.0); %Monocytes 6.8 % (0.0-10.0); %Neutrophils 76.7 % (42.0-75.0); Hemoglobin 11.4 g/dL (12.0-16.0); Mean Corpuscular HGB CONC 34.8 g/dL (32.0-36.0); Mean Corpuscular Hemoglobin 32.3 pg (27.0-31.0); Mean Corpuscular Volume 92.8 fl (78.0-98.0); Mean Platelet Volume 6.3 fL (7.4-10.4); Platelet Count 287 10x3/uL (130-400); RBC Distribution Width 13.5 % (11.5-14.5); Red Blood Cell (RBC) Count 3.52 mill/uL (4.20-5.40); White Blood Cell (WBC) Count 8.1 10x3/uL (4.8-10.8)
[2022-10-30 07:52] LABS: Anion Gap 13 mmol/L (10-20); BUN (Urea Nitrogen) 12 mg/dL (9.8-20.1); Calc. Creatinine Clearance 35 mL/min (70-130); Calcium 8.2 mg/dL (7.8-10.44); Carbon Dioxide 21 mmol/L (22-29); Chloride 104 mmol/L (98-107); Estimated GFR 47; Glucose 104 mg/dL (70-105); Potassium 3.3 mmol/L (3.5-5.1); Sodium 135 mmol/L (136-145)
[2022-10-30] MEDS: NIFEdipine XL 30 MG TAB PO SCH (09:39)
[2022-10-30] MEDS: Cholecalciferol 1,000 UNITS (25 MCG) TAB PO SCH (09:39)
[2022-10-30] MEDS: Acetaminophen 500 MG TAB PO SCH ×3 (09:39→19:51)
[2022-10-30] MEDS: Famotidine 20 MG TAB PO SCH (09:40)
[2022-10-30] MEDS: Senokot S 8.6-50 MG TAB PO SCH ×3 (09:41→20:09)
[2022-10-30] MEDS ORDERED: Potassium Chloride 20 MEQ TAB PO SCH (10:00)
[2022-10-30] MEDS: Sodium Chloride 256 MEQ in Sterile Water Injection 936 ML IV SCH (10:41)
[2022-10-30] MEDS: Tacrolimus 1 MG CAP PO SCH ×2 (10:41→19:55)
[2022-10-30] MEDS: WATER FS SCH ×2 (17:51→19:56)
[2022-10-30] MEDS: WATER IVPB SCH (17:51)
[2022-10-30] MEDS: AMBISOME IVPB SCH (17:51)
[2022-10-30] MEDS: PRE FILLED FS SCH ×2 (17:51→19:56)
[2022-10-30] MEDS: DEXTROSE 5% FS SCH ×2 (17:51→19:56)
[2022-10-30] MEDS: DEXTROSE 5% IVPB SCH (17:51)
[2022-10-30] MEDS: Folic Acid 1 MG TAB PO SCH (19:55)
[2022-10-30] MEDS: Cyanocobalamin (Vitamin B-12) 1,000 MCG TAB PO SCH (19:55)
[2022-10-30] MEDS: Tacrolimus 0.5 MG CAP PO SCH (19:55)
[2022-10-30] MEDS: Morphine 4 MG/ML VIAL SLOW IVP PRN (19:57)
[2022-10-30] MEDS ORDERED: cloNIDine 0.1 MG TAB PO PRN (20:16)
[2022-10-31] MEDS: Sodium Chloride 256 MEQ in Sterile Water Injection 936 ML IV SCH ×2 (03:21→20:22)
[2022-10-31 06:08] LABS: #Eosinphils 0.2 thou/uL (0.0-0.7); #Lymphocytes 0.9 thou/uL (1.20-3.40); #Monocytes 0.5 thou/uL (0.11-0.59); #Neutrophils 5.4 thou/uL (1.40-6.50); %Basophils 0.1 % (0.0-1.0); %Eosinophils 2.3 % (0.0-10.0); %Lymphocytes 12.6 % (21.0-51.0); %Monocytes 7.1 % (0.0-10.0); Hemoglobin 10.7 g/dL (12.0-16.0); Mean Corpuscular Hemoglobin 31.4 pg (27.0-31.0); Mean Corpuscular Volume 92.4 fl (78.0-98.0); Mean Platelet Volume 6.3 fL (7.4-10.4); Platelet Count 270 10x3/uL (130-400); RBC Distribution Width 13.6 % (11.5-14.5); Red Blood Cell (RBC) Count 3.41 mill/uL (4.20-5.40); White Blood Cell (WBC) Count 6.9 10x3/uL (4.8-10.8)
[2022-10-31 06:28] LABS: Anion Gap 13 mmol/L (10-20); BUN (Urea Nitrogen) 10 mg/dL (9.8-20.1); Calc. Creatinine Clearance 41 mL/min (70-130); Calcium 8.4 mg/dL (7.8-10.44); Carbon Dioxide 20 mmol/L (22-29); Chloride 107 mmol/L (98-107); Estimated GFR 55; Glucose 106 mg/dL (70-105); Potassium 3.3 mmol/L (3.5-5.1); Sodium 137 mmol/L (136-145)
[2022-10-31] MEDS ORDERED: Potassium Chloride 20 MEQ TAB PO SCH (08:00)
[2022-10-31] MEDS ORDERED: ALPRAZolam 0.25 MG TAB PO PRN (08:57)
[2022-10-31] MEDS ORDERED: NIFEdipine XL 30 MG TAB PO SCH (09:00)
[2022-10-31] MEDS: Cholecalciferol 1,000 UNITS (25 MCG) TAB PO SCH (09:39)
[2022-10-31] MEDS: NIFEdipine XL 90 MG TAB PO SCH (09:39)
[2022-10-31] MEDS: Tacrolimus 1 MG CAP PO SCH ×3 (09:40→20:05)
[2022-10-31] MEDS: Famotidine 20 MG TAB PO SCH (09:40)
[2022-10-31] MEDS: Acetaminophen 500 MG TAB PO SCH ×3 (09:40→20:05)
[2022-10-31] MEDS: Senokot S 8.6-50 MG TAB PO SCH ×2 (09:42→20:07)
[2022-10-31] MEDS: Morphine 4 MG/ML VIAL SLOW IVP PRN ×2 (17:09→20:59)
[2022-10-31] MEDS: WATER IVPB SCH (17:10)
[2022-10-31] MEDS: AMBISOME IVPB SCH (17:10)
[2022-10-31] MEDS: DEXTROSE 5% FS SCH ×4 (17:10→20:07)
[2022-10-31] MEDS: DEXTROSE 5% IVPB SCH (17:10)
[2022-10-31] MEDS: PRE FILLED FS SCH ×4 (17:10→20:07)
[2022-10-31] MEDS: WATER FS SCH ×4 (17:10→20:07)
[2022-10-31] MEDS: Folic Acid 1 MG TAB PO SCH (20:05)
[2022-10-31] MEDS: Cyanocobalamin (Vitamin B-12) 1,000 MCG TAB PO SCH (20:05)
[2022-11-01] MEDS: Morphine 4 MG/ML VIAL SLOW IVP PRN ×2 (02:09→20:11)
[2022-11-01] MEDS: Ondansetron PF 4 MG/2 ML Vial IVP PRN (02:09)
[2022-11-01] MEDS: Promethazine HCl 12.5 MG in Sodium Chloride 0.9% 50 ML IVPB PRN (05:10)
[2022-11-01] MEDS: SUMAtriptan Succinate 6 MG/0.5 ML VIAL SC PRN (05:17)
[2022-11-01 06:00] LABS: #Eosinphils 0.1 thou/uL (0.0-0.7); #Lymphocytes 0.8 thou/uL (1.20-3.40); #Monocytes 0.6 thou/uL (0.11-0.59); #Neutrophils 5.8 thou/uL (1.40-6.50); %Eosinophils 1.2 % (0.0-10.0); %Lymphocytes 10.6 % (21.0-51.0); %Monocytes 7.8 % (0.0-10.0); %Neutrophils 80.4 % (42.0-75.0); Hemoglobin 12.7 g/dL (12.0-16.0); Mean Corpuscular HGB CONC 34.1 g/dL (32.0-36.0); Mean Corpuscular Hemoglobin 31.5 pg (27.0-31.0); Mean Corpuscular Volume 92.4 fl (78.0-98.0); Mean Platelet Volume 6.3 fL (7.4-10.4); Platelet Count 279 10x3/uL (130-400); RBC Distribution Width 13.7 % (11.5-14.5); Red Blood Cell (RBC) Count 4.02 mill/uL (4.20-5.40); White Blood Cell (WBC) Count 7.2 10x3/uL (4.8-10.8)
[2022-11-01 06:18] LABS: Anion Gap 16 mmol/L (10-20); BUN (Urea Nitrogen) 7 mg/dL (9.8-20.1); Calc. Creatinine Clearance 54 mL/min (70-130); Calcium 8.8 mg/dL (7.8-10.44); Carbon Dioxide 21 mmol/L (22-29); Chloride 107 mmol/L (98-107); Estimated GFR 77; Glucose 145 mg/dL (70-105); Potassium 3.2 mmol/L (3.5-5.1); Sodium 141 mmol/L (136-145)
[2022-11-01] MEDS ORDERED: Potassium Chloride 20 MEQ TAB PO SCH (08:00)
[2022-11-01] MEDS: NIFEdipine XL 90 MG TAB PO SCH (09:23)
[2022-11-01] MEDS: Tacrolimus 1 MG CAP PO SCH ×2 (09:23→20:07)
[2022-11-01] MEDS: Famotidine 20 MG TAB PO SCH (09:23)
[2022-11-01] MEDS: Cholecalciferol 1,000 UNITS (25 MCG) TAB PO SCH (09:24)
[2022-11-01] MEDS: Acetaminophen 500 MG TAB PO SCH ×3 (09:24→20:10)
[2022-11-01] MEDS: Senokot S 8.6-50 MG TAB PO SCH ×2 (09:27→20:59)
[2022-11-01] MEDS: Sodium Chloride 256 MEQ in Sterile Water Injection 936 ML IV SCH ×2 (13:55→15:25)
[2022-11-01] MEDS: DEXTROSE 5% IVPB SCH (17:39)
[2022-11-01] MEDS: WATER IVPB SCH (17:39)
[2022-11-01] MEDS: AMBISOME IVPB SCH (17:39)
[2022-11-01] MEDS: Cyanocobalamin (Vitamin B-12) 1,000 MCG TAB PO SCH (20:08)
[2022-11-01] MEDS: PRE FILLED FS SCH (20:10)
[2022-11-01] MEDS: WATER FS SCH (20:10)
[2022-11-01] MEDS: DEXTROSE 5% FS SCH (20:10)
[2022-11-01] MEDS: Folic Acid 1 MG TAB PO SCH (20:10)
[2022-11-02] MEDS: Sodium Chloride 256 MEQ in Sterile Water Injection 936 ML IV SCH (05:46)
[2022-11-02 06:03] LABS: #Eosinphils 0.2 thou/uL (0.0-0.7); #Monocytes 0.5 thou/uL (0.11-0.59); #Neutrophils 5.2 thou/uL (1.40-6.50); %Basophils 0.2 % (0.0-1.0); %Eosinophils 2.7 % (0.0-10.0); %Lymphocytes 14.8 % (21.0-51.0); %Monocytes 7.2 % (0.0-10.0); %Neutrophils 75.1 % (42.0-75.0); Hemoglobin 11.1 g/dL (12.0-16.0); Mean Corpuscular HGB CONC 33.8 g/dL (32.0-36.0); Mean Corpuscular Hemoglobin 31.8 pg (27.0-31.0); Mean Corpuscular Volume 94.1 fl (78.0-98.0); Mean Platelet Volume 6.5 fL (7.4-10.4); Platelet Count 265 10x3/uL (130-400); RBC Distribution Width 13.9 % (11.5-14.5); Red Blood Cell (RBC) Count 3.49 mill/uL (4.20-5.40)
[2022-11-02 06:26] LABS: Anion Gap 12 mmol/L (10-20); BUN (Urea Nitrogen) 8 mg/dL (9.8-20.1); Calc. Creatinine Clearance 53 mL/min (70-130); Calcium 8.1 mg/dL (7.8-10.44); Carbon Dioxide 23 mmol/L (22-29); Chloride 106 mmol/L (98-107); Estimated GFR 78; Glucose 98 mg/dL (70-105); Potassium 3.2 mmol/L (3.5-5.1); Sodium 138 mmol/L (136-145)
[2022-11-02] MEDS ORDERED: Potassium Chloride 20 MEQ TAB PO SCH (08:00)
[2022-11-02] MEDS: Tacrolimus 1 MG CAP PO SCH ×3 (09:04→20:31)
[2022-11-02] MEDS: NIFEdipine XL 90 MG TAB PO SCH (09:04)
[2022-11-02] MEDS: Cholecalciferol 1,000 UNITS (25 MCG) TAB PO SCH (09:04)
[2022-11-02] MEDS: Famotidine 20 MG TAB PO SCH (09:04)
[2022-11-02] MEDS: Acetaminophen 500 MG TAB PO SCH ×3 (09:06→20:21)
[2022-11-02] MEDS: Senokot S 8.6-50 MG TAB PO SCH ×2 (09:07→20:20)
[2022-11-02] MEDS: Ondansetron PF 4 MG/2 ML Vial IVP PRN (15:30)
[2022-11-02] MEDS: WATER IVPB SCH (17:12)
[2022-11-02] MEDS: AMBISOME IVPB SCH (17:12)
[2022-11-02] MEDS: DEXTROSE 5% IVPB SCH (17:12)
[2022-11-02] MEDS: DEXTROSE 5% FS SCH (20:19)
[2022-11-02] MEDS: PRE FILLED FS SCH (20:19)
[2022-11-02] MEDS: WATER FS SCH (20:19)
[2022-11-02] MEDS: Folic Acid 1 MG TAB PO SCH (20:20)
[2022-11-02] MEDS: Cyanocobalamin (Vitamin B-12) 1,000 MCG TAB PO SCH (20:21)
[2022-11-03] MEDS: Sodium Chloride 256 MEQ in Sterile Water Injection 936 ML IV SCH ×2 (02:24→13:00)
[2022-11-03 06:16] LABS: #Eosinphils 0.2 thou/uL (0.0-0.7); #Lymphocytes 1.4 thou/uL (1.20-3.40); #Monocytes 0.6 thou/uL (0.11-0.59); #Neutrophils 4.5 thou/uL (1.40-6.50); %Basophils 0.2 % (0.0-1.0); %Eosinophils 3.4 % (0.0-10.0); %Monocytes 8.9 % (0.0-10.0); %Neutrophils 66.5 % (42.0-75.0); Hemoglobin 11.8 g/dL (12.0-16.0); Mean Corpuscular HGB CONC 33.4 g/dL (32.0-36.0); Mean Corpuscular Hemoglobin 32.1 pg (27.0-31.0); Mean Corpuscular Volume 96.1 fl (78.0-98.0); Mean Platelet Volume 6.8 fL (7.4-10.4); Platelet Count 256 10x3/uL (130-400); Red Blood Cell (RBC) Count 3.66 mill/uL (4.20-5.40); White Blood Cell (WBC) Count 6.7 10x3/uL (4.8-10.8)
[2022-11-03 06:37] LABS: Anion Gap 16 mmol/L (10-20); BUN (Urea Nitrogen) 9 mg/dL (9.8-20.1); Calc. Creatinine Clearance 46 mL/min (70-130); Calcium 8.8 mg/dL (7.8-10.44); Carbon Dioxide 18 mmol/L (22-29); Chloride 108 mmol/L (98-107); Estimated GFR 63; Glucose 95 mg/dL (70-105); Potassium 3.6 mmol/L (3.5-5.1); Sodium 138 mmol/L (136-145)
[2022-11-03] MEDS: Acetaminophen 500 MG TAB PO SCH ×3 (08:09→21:15)
[2022-11-03] MEDS: Famotidine 20 MG TAB PO SCH (08:09)
[2022-11-03] MEDS: NIFEdipine XL 90 MG TAB PO SCH (08:09)
[2022-11-03] MEDS: Cholecalciferol 1,000 UNITS (25 MCG) TAB PO SCH (08:09)
[2022-11-03] MEDS: Tacrolimus 1 MG CAP PO SCH ×2 (08:09→21:16)
[2022-11-03] MEDS: Senokot S 8.6-50 MG TAB PO SCH ×2 (08:14→21:16)
[2022-11-03] MEDS: DEXTROSE 5% FS SCH ×2 (18:28→21:15)
[2022-11-03] MEDS: AMBISOME IVPB SCH (18:28)
[2022-11-03] MEDS: DEXTROSE 5% IVPB SCH (18:28)
[2022-11-03] MEDS: PRE FILLED FS SCH ×2 (18:28→21:15)
[2022-11-03] MEDS: WATER FS SCH ×2 (18:28→21:15)
[2022-11-03] MEDS: WATER IVPB SCH (18:28)
[2022-11-03] MEDS: Folic Acid 1 MG TAB PO SCH (21:16)
[2022-11-03] MEDS: Tacrolimus 0.5 MG CAP PO SCH (21:16)
[2022-11-03] MEDS: Cyanocobalamin (Vitamin B-12) 1,000 MCG TAB PO SCH (21:16)
[2022-11-04 05:47] LABS: #Eosinphils 0.2 thou/uL (0.0-0.7); #Lymphocytes 1.1 thou/uL (1.20-3.40); #Monocytes 0.6 thou/uL (0.11-0.59); #Neutrophils 4.1 thou/uL (1.40-6.50); %Basophils 0.4 % (0.0-1.0); %Lymphocytes 18.3 % (21.0-51.0); %Neutrophils 68.4 % (42.0-75.0); Mean Corpuscular HGB CONC 33.5 g/dL (32.0-36.0); Mean Corpuscular Hemoglobin 31.9 pg (27.0-31.0); Mean Corpuscular Volume 95.3 fl (78.0-98.0); Mean Platelet Volume 6.5 fL (7.4-10.4); Platelet Count 256 10x3/uL (130-400); RBC Distribution Width 13.6 % (11.5-14.5); Red Blood Cell (RBC) Count 3.46 mill/uL (4.20-5.40); White Blood Cell (WBC) Count 6.1 10x3/uL (4.8-10.8)
[2022-11-04 06:06] LABS: Anion Gap 12 mmol/L (10-20); BUN (Urea Nitrogen) 7 mg/dL (9.8-20.1); Calc. Creatinine Clearance 44 mL/min (70-130); Calcium 8.3 mg/dL (7.8-10.44); Carbon Dioxide 25 mmol/L (22-29); Chloride 106 mmol/L (98-107); Estimated GFR 60; Glucose 103 mg/dL (70-105); Potassium 3.2 mmol/L (3.5-5.1); Sodium 140 mmol/L (136-145)
[2022-11-04] MEDS ORDERED: Potassium Chloride 20 MEQ TAB PO SCH (08:00)
[2022-11-04] MEDS: Tacrolimus 1 MG CAP PO SCH ×2 (08:57→21:09)
[2022-11-04] MEDS: NIFEdipine XL 90 MG TAB PO SCH (08:59)
[2022-11-04] MEDS: Acetaminophen 500 MG TAB PO SCH ×3 (08:59→21:08)
[2022-11-04] MEDS: Famotidine 20 MG TAB PO SCH (09:01)
[2022-11-04] MEDS: Cholecalciferol 1,000 UNITS (25 MCG) TAB PO SCH (09:02)
[2022-11-04] MEDS: Senokot S 8.6-50 MG TAB PO SCH ×2 (09:03→21:10)
[2022-11-04] MEDS: Sodium Chloride 256 MEQ in Sterile Water Injection 936 ML IV SCH ×2 (09:12→14:18)
[2022-11-04] MEDS: PRE FILLED FS SCH ×2 (18:30→21:05)
[2022-11-04] MEDS: WATER FS SCH ×2 (18:30→21:05)
[2022-11-04] MEDS: DEXTROSE 5% FS SCH ×2 (18:30→21:05)
[2022-11-04] MEDS: AMBISOME IVPB SCH (18:56)
[2022-11-04] MEDS: WATER IVPB SCH (18:56)
[2022-11-04] MEDS: DEXTROSE 5% IVPB SCH (18:56)
[2022-11-04] MEDS: Tacrolimus 0.5 MG CAP PO SCH (21:08)
[2022-11-04] MEDS: Cyanocobalamin (Vitamin B-12) 1,000 MCG TAB PO SCH (21:09)
[2022-11-04] MEDS: Folic Acid 1 MG TAB PO SCH (21:10)
[2022-11-05 06:37] LABS: #Eosinphils 0.2 thou/uL (0.0-0.7); #Lymphocytes 0.9 thou/uL (1.20-3.40); #Monocytes 0.6 thou/uL (0.11-0.59); #Neutrophils 4.2 thou/uL (1.40-6.50); %Eosinophils 2.7 % (0.0-10.0); %Lymphocytes 16.1 % (21.0-51.0); %Monocytes 9.7 % (0.0-10.0); %Neutrophils 71.5 % (42.0-75.0); Hemoglobin 10.9 g/dL (12.0-16.0); Mean Corpuscular Volume 94.2 fl (78.0-98.0); Mean Platelet Volume 6.6 fL (7.4-10.4); Platelet Count 258 10x3/uL (130-400); RBC Distribution Width 13.9 % (11.5-14.5); Red Blood Cell (RBC) Count 3.39 mill/uL (4.20-5.40); White Blood Cell (WBC) Count 5.9 10x3/uL (4.8-10.8)
[2022-11-05 06:57] LABS: Anion Gap 15 mmol/L (10-20); BUN (Urea Nitrogen) 7 mg/dL (9.8-20.1); Calc. Creatinine Clearance 42 mL/min (70-130); Calcium 8.2 mg/dL (7.8-10.44); Carbon Dioxide 21 mmol/L (22-29); Chloride 105 mmol/L (98-107); Estimated GFR 57; Glucose 110 mg/dL (70-105); Potassium 3.1 mmol/L (3.5-5.1); Sodium 138 mmol/L (136-145)
[2022-11-05] MEDS: Ondansetron PF 4 MG/2 ML Vial IVP PRN (08:07)
[2022-11-05] MEDS: Tacrolimus 1 MG CAP PO SCH ×2 (08:08→20:40)
[2022-11-05] MEDS: NIFEdipine XL 90 MG TAB PO SCH (08:09)
[2022-11-05] MEDS: Famotidine 20 MG TAB PO SCH (08:09)
[2022-11-05] MEDS: Acetaminophen 500 MG TAB PO SCH ×4 (08:09→20:39)
[2022-11-05] MEDS: Cholecalciferol 1,000 UNITS (25 MCG) TAB PO SCH (08:10)
[2022-11-05] MEDS: Senokot S 8.6-50 MG TAB PO SCH ×2 (08:10→20:44)
[2022-11-05] MEDS: Sodium Chloride 256 MEQ in Sterile Water Injection 936 ML IV SCH (10:30)
[2022-11-05] MEDS ORDERED: Potassium Chloride 20 MEQ TAB PO SCH (13:00)
[2022-11-05] MEDS: DEXTROSE 5% FS SCH ×2 (18:20→20:44)
[2022-11-05] MEDS: AMBISOME IVPB SCH (18:20)
[2022-11-05] MEDS: DEXTROSE 5% IVPB SCH (18:20)
[2022-11-05] MEDS: PRE FILLED FS SCH ×2 (18:20→20:44)
[2022-11-05] MEDS: WATER IVPB SCH (18:20)
[2022-11-05] MEDS: WATER FS SCH ×2 (18:20→20:44)
[2022-11-05] MEDS: Folic Acid 1 MG TAB PO SCH (20:39)
[2022-11-05] MEDS: Cyanocobalamin (Vitamin B-12) 1,000 MCG TAB PO SCH (20:39)
[2022-11-05] MEDS: Tacrolimus 0.5 MG CAP PO SCH (20:44)
[2022-11-06] MEDS: Sodium Chloride 256 MEQ in Sterile Water Injection 936 ML IV SCH (02:57)
[2022-11-06 06:27] LABS: #Eosinphils 0.2 thou/uL (0.0-0.7); #Lymphocytes 0.9 thou/uL (1.20-3.40); #Monocytes 0.6 thou/uL (0.11-0.59); #Neutrophils 4.1 thou/uL (1.40-6.50); %Basophils 0.3 % (0.0-1.0); %Eosinophils 2.7 % (0.0-10.0); %Lymphocytes 15.8 % (21.0-51.0); %Monocytes 10.7 % (0.0-10.0); %Neutrophils 70.5 % (42.0-75.0); Hemoglobin 11.4 g/dL (12.0-16.0); Mean Corpuscular HGB CONC 33.5 g/dL (32.0-36.0); Mean Corpuscular Hemoglobin 31.6 pg (27.0-31.0); Mean Corpuscular Volume 94.5 fl (78.0-98.0); Mean Platelet Volume 6.7 fL (7.4-10.4); Platelet Count 252 10x3/uL (130-400); RBC Distribution Width 13.8 % (11.5-14.5); White Blood Cell (WBC) Count 5.8 10x3/uL (4.8-10.8)
[2022-11-06 06:46] LABS: Anion Gap 14 mmol/L (10-20); BUN (Urea Nitrogen) 4 mg/dL (9.8-20.1); Calc. Creatinine Clearance 52 mL/min (70-130); Calcium 8.3 mg/dL (7.8-10.44); Carbon Dioxide 24 mmol/L (22-29); Chloride 104 mmol/L (98-107); Estimated GFR 75; Glucose 160 mg/dL (70-105); Potassium 3.2 mmol/L (3.5-5.1); Sodium 139 mmol/L (136-145)
[2022-11-06] MEDS ORDERED: Potassium Chloride 20 MEQ TAB PO SCH (08:00)
[2022-11-06] MEDS: NIFEdipine XL 90 MG TAB PO SCH (08:30)
[2022-11-06] MEDS: Tacrolimus 1 MG CAP PO SCH ×2 (08:30→20:56)
[2022-11-06] MEDS: Cholecalciferol 1,000 UNITS (25 MCG) TAB PO SCH (08:31)
[2022-11-06] MEDS: Acetaminophen 500 MG TAB PO SCH ×3 (08:31→20:55)
[2022-11-06] MEDS: Senokot S 8.6-50 MG TAB PO SCH ×2 (08:31→20:58)
[2022-11-06] MEDS: Famotidine 20 MG TAB PO SCH (08:32)
[2022-11-06 10:53] LABS: CSF, Glucose 51 mg/dl (40-70); CSF, Protein 58 mg/dL (15-40)
[2022-11-06 10:54] LABS: CSF Source CSF; Clarity Clear (Clear); Tube # 4
[2022-11-06 11:01] LABS: CSF RBC Count - Manual 2 /cu.mm (None Seen); CSF WBC/NonHematics Count-Man 28 /cu.mm (0-5)
[2022-11-06 12:09] LABS: Cell Count Non Hematic 38 %; Lymphocytes 62 %; Segmented Neutrophils 0 %
[2022-11-06] MEDS: WATER IVPB SCH (16:35)
[2022-11-06] MEDS: DEXTROSE 5% FS SCH ×2 (16:35→18:46)
[2022-11-06] MEDS: PRE FILLED FS SCH ×2 (16:35→18:46)
[2022-11-06] MEDS: AMBISOME IVPB SCH (16:35)
[2022-11-06] MEDS: WATER FS SCH ×2 (16:35→18:46)
[2022-11-06] MEDS: DEXTROSE 5% IVPB SCH (16:35)
[2022-11-06] MEDS: Cyanocobalamin (Vitamin B-12) 1,000 MCG TAB PO SCH (20:56)
[2022-11-06] MEDS: Folic Acid 1 MG TAB PO SCH (20:56)
[2022-11-06] MEDS: Tacrolimus 0.5 MG CAP PO SCH (20:58)
[2022-11-07] MEDS: Sodium Chloride 256 MEQ in Sterile Water Injection 936 ML IV SCH ×2 (01:24→19:28)
[2022-11-07 06:22] LABS: #Eosinphils 0.2 thou/uL (0.0-0.7); #Monocytes 0.7 thou/uL (0.11-0.59); #Neutrophils 3.8 thou/uL (1.40-6.50); %Basophils 0.7 % (0.0-1.0); %Eosinophils 3.9 % (0.0-10.0); %Lymphocytes 17.6 % (21.0-51.0); %Monocytes 12.4 % (0.0-10.0); %Neutrophils 65.5 % (42.0-75.0); Hemoglobin 10.8 g/dL (12.0-16.0); Mean Corpuscular HGB CONC 33.8 g/dL (32.0-36.0); Mean Corpuscular Volume 94.8 fl (78.0-98.0); Mean Platelet Volume 6.7 fL (7.4-10.4); Platelet Count 254 10x3/uL (130-400); RBC Distribution Width 13.8 % (11.5-14.5); Red Blood Cell (RBC) Count 3.38 mill/uL (4.20-5.40); White Blood Cell (WBC) Count 5.8 10x3/uL (4.8-10.8)
[2022-11-07 06:36] LABS: Anion Gap 12 mmol/L (10-20); BUN (Urea Nitrogen) 7 mg/dL (9.8-20.1); Calc. Creatinine Clearance 47 mL/min (70-130); Carbon Dioxide 23 mmol/L (22-29); Chloride 109 mmol/L (98-107); Estimated GFR 62; Glucose 111 mg/dL (70-105); Potassium 3.3 mmol/L (3.5-5.1); Sodium 141 mmol/L (136-145)
[2022-11-07] MEDS ORDERED: Potassium Chloride 20 MEQ TAB PO SCH (08:00)
[2022-11-07] MEDS: Cholecalciferol 1,000 UNITS (25 MCG) TAB PO SCH (09:14)
[2022-11-07] MEDS: Famotidine 20 MG TAB PO SCH (09:14)
[2022-11-07] MEDS: NIFEdipine XL 90 MG TAB PO SCH (09:14)
[2022-11-07] MEDS: Tacrolimus 1 MG CAP PO SCH ×2 (09:15→21:31)
[2022-11-07] MEDS: Loperamide HCl 2 MG CAP PO PRN (10:39)
[2022-11-07] MEDS: Senokot S 8.6-50 MG TAB PO SCH ×2 (11:19→21:31)
[2022-11-07] MEDS: Acetaminophen 500 MG TAB PO SCH ×3 (11:19→21:31)
[2022-11-07] MEDS: PRE FILLED FS SCH ×2 (17:10→19:28)
[2022-11-07] MEDS: WATER FS SCH ×2 (17:10→19:28)
[2022-11-07] MEDS: DEXTROSE 5% FS SCH ×2 (17:10→19:28)
[2022-11-07] MEDS: WATER IVPB SCH (17:11)
[2022-11-07] MEDS: AMBISOME IVPB SCH (17:11)
[2022-11-07] MEDS: DEXTROSE 5% IVPB SCH (17:11)
[2022-11-07] MEDS: Cyanocobalamin (Vitamin B-12) 1,000 MCG TAB PO SCH (21:30)
[2022-11-07] MEDS: Folic Acid 1 MG TAB PO SCH (21:31)
[2022-11-07] MEDS: Tacrolimus 0.5 MG CAP PO SCH (21:31)
[2022-11-08 05:57] LABS: #Eosinphils 0.2 thou/uL (0.0-0.7); #Lymphocytes 1.1 thou/uL (1.20-3.40); #Monocytes 0.7 thou/uL (0.11-0.59); #Neutrophils 4.4 thou/uL (1.40-6.50); %Eosinophils 2.8 % (0.0-10.0); %Lymphocytes 17.4 % (21.0-51.0); %Monocytes 11.2 % (0.0-10.0); %Neutrophils 68.7 % (42.0-75.0); Hemoglobin 11.9 g/dL (12.0-16.0); Mean Corpuscular HGB CONC 34.2 g/dL (32.0-36.0); Mean Corpuscular Hemoglobin 32.4 pg (27.0-31.0); Mean Corpuscular Volume 94.8 fl (78.0-98.0); Mean Platelet Volume 6.6 fL (7.4-10.4); Platelet Count 276 10x3/uL (130-400); RBC Distribution Width 13.9 % (11.5-14.5); Red Blood Cell (RBC) Count 3.67 mill/uL (4.20-5.40); White Blood Cell (WBC) Count 6.4 10x3/uL (4.8-10.8)
[2022-11-08 06:28] LABS: Anion Gap 16 mmol/L (10-20); BUN (Urea Nitrogen) 6 mg/dL (9.8-20.1); Calc. Creatinine Clearance 54 mL/min (70-130); Calcium 8.3 mg/dL (7.8-10.44); Carbon Dioxide 23 mmol/L (22-29); Chloride 105 mmol/L (98-107); Estimated GFR 75; Glucose 112 mg/dL (70-105); Potassium 3.2 mmol/L (3.5-5.1); Sodium 141 mmol/L (136-145)
[2022-11-08] MEDS ORDERED: Potassium Chloride 20 MEQ TAB PO SCH (08:00)
[2022-11-08 08:16] LABS: Tacrolimus 6.5 ng/mL (2.0-20.0)
[2022-11-08 08:45] LABS: Magnesium 0.8 mg/dL (1.6-2.6)
[2022-11-08] MEDS: Famotidine 20 MG TAB PO SCH (09:27)
[2022-11-08] MEDS: Tacrolimus 1 MG CAP PO SCH ×2 (09:27→21:27)
[2022-11-08] MEDS: Cholecalciferol 1,000 UNITS (25 MCG) TAB PO SCH (09:27)
[2022-11-08] MEDS: NIFEdipine XL 90 MG TAB PO SCH (09:27)
[2022-11-08] MEDS: Acetaminophen 500 MG TAB PO SCH ×2 (09:28→17:22)
[2022-11-08] MEDS: Fluconazole 100 MG TAB PO SCH ×2 (09:28→21:27)
[2022-11-08] MEDS: Senokot S 8.6-50 MG TAB PO SCH ×2 (09:39→21:28)
[2022-11-08] MEDS ORDERED: Magnesium Sulfate In Water 4 GM in Premix Bag 1 BAG IVPB SCH (10:00)
[2022-11-08] MEDS: Sodium Chloride 256 MEQ in Sterile Water Injection 936 ML IV SCH (17:22)
[2022-11-08] MEDS: Tacrolimus 0.5 MG CAP PO SCH (21:27)
[2022-11-08] MEDS: Folic Acid 1 MG TAB PO SCH (21:28)
[2022-11-08] MEDS: Cyanocobalamin (Vitamin B-12) 1,000 MCG TAB PO SCH (21:28)
[2022-11-09] MEDS: Acetaminophen 500 MG TAB PO SCH ×4 (05:33→20:51)
[2022-11-09] MEDS: Sodium Chloride 256 MEQ in Sterile Water Injection 936 ML IV SCH (05:34)
[2022-11-09 06:16] LABS: #Eosinphils 0.1 thou/uL (0.0-0.7); #Lymphocytes 0.9 thou/uL (1.20-3.40); #Monocytes 0.9 thou/uL (0.11-0.59); %Basophils 0.1 % (0.0-1.0); %Lymphocytes 12.6 % (21.0-51.0); %Monocytes 12.6 % (0.0-10.0); %Neutrophils 72.7 % (42.0-75.0); Hemoglobin 11.2 g/dL (12.0-16.0); Mean Corpuscular HGB CONC 36.2 g/dL (32.0-36.0); Mean Corpuscular Hemoglobin 34.4 pg (27.0-31.0); Mean Corpuscular Volume 95.1 fl (78.0-98.0); Mean Platelet Volume 6.3 fL (7.4-10.4); Platelet Count 268 10x3/uL (130-400); RBC Distribution Width 13.6 % (11.5-14.5); Red Blood Cell (RBC) Count 3.24 mill/uL (4.20-5.40); White Blood Cell (WBC) Count 6.9 10x3/uL (4.8-10.8)
[2022-11-09 06:35] LABS: Anion Gap 13 mmol/L (10-20); BUN (Urea Nitrogen) 7 mg/dL (9.8-20.1); Calc. Creatinine Clearance 54 mL/min (70-130); Calcium 8.1 mg/dL (7.8-10.44); Carbon Dioxide 21 mmol/L (22-29); Chloride 107 mmol/L (98-107); Estimated GFR 82; Glucose 110 mg/dL (70-105); Potassium 3.1 mmol/L (3.5-5.1); Sodium 138 mmol/L (136-145)
[2022-11-09] MEDS ORDERED: Potassium Chloride 20 MEQ TAB PO SCH (08:00)
[2022-11-09] MEDS: Famotidine 20 MG TAB PO SCH (09:22)
[2022-11-09] MEDS: Tacrolimus 1 MG CAP PO SCH ×2 (09:23→20:51)
[2022-11-09] MEDS: NIFEdipine XL 90 MG TAB PO SCH ×2 (09:23→09:35)
[2022-11-09] MEDS: Cholecalciferol 1,000 UNITS (25 MCG) TAB PO SCH (09:23)
[2022-11-09] MEDS: Senokot S 8.6-50 MG TAB PO SCH (09:24)
[2022-11-09] MEDS: Fluconazole 100 MG TAB PO SCH ×2 (09:24→20:52)
[2022-11-09] MEDS ORDERED: Senokot S 8.6-50 MG TAB PO PRN (19:48)
[2022-11-09] MEDS: Tacrolimus 0.5 MG CAP PO SCH (20:51)
[2022-11-09] MEDS: Folic Acid 1 MG TAB PO SCH (20:52)
[2022-11-09] MEDS: Cyanocobalamin (Vitamin B-12) 1,000 MCG TAB PO SCH (20:52)
[2022-11-10 06:40] LABS: ALT (SGPT) 12 U/L (8-55); AST (SGOT) 15 U/L (5-34); Albumin 3.3 g/dL (3.5-5.0); Alkaline Phosphatase 48 U/L (40-110); Bilirubin, Direct 0.1 mg/dL (0.1-0.3); Bilirubin, Total 0.4 mg/dL (0.2-1.2); Protein, Total 5.9 g/dL (6.0-8.3)
[2022-11-10] MEDS: Acetaminophen 500 MG TAB PO SCH ×3 (09:14→20:37)
[2022-11-10] MEDS: Famotidine 20 MG TAB PO SCH (09:15)
[2022-11-10] MEDS: Cholecalciferol 1,000 UNITS (25 MCG) TAB PO SCH (09:15)
[2022-11-10] MEDS: Fluconazole 100 MG TAB PO SCH ×2 (09:15→20:36)
[2022-11-10] MEDS: Tacrolimus 1 MG CAP PO SCH ×2 (09:15→20:38)
[2022-11-10] MEDS: NIFEdipine XL 90 MG TAB PO SCH (09:16)
[2022-11-10] MEDS: Sodium Chloride 256 MEQ in Sterile Water Injection 936 ML IV SCH ×2 (09:21→15:31)
[2022-11-10] MEDS: Tacrolimus 0.5 MG CAP PO SCH (20:36)
[2022-11-10] MEDS: Cyanocobalamin (Vitamin B-12) 1,000 MCG TAB PO SCH (20:37)
[2022-11-10] MEDS: Folic Acid 1 MG TAB PO SCH (20:37)
[2022-11-11 06:27] LABS: Anion Gap 13 mmol/L (10-20); BUN (Urea Nitrogen) 5 mg/dL (9.8-20.1); Calc. Creatinine Clearance 52 mL/min (70-130); Calcium 8.3 mg/dL (7.8-10.44); Carbon Dioxide 25 mmol/L (22-29); Chloride 105 mmol/L (98-107); Estimated GFR 77; Glucose 95 mg/dL (70-105); Sodium 140 mmol/L (136-145)
[2022-11-11] MEDS ORDERED: Potassium Chloride 20 MEQ TAB PO SCH ×2 (08:00→11:30)
[2022-11-11] MEDS: Tacrolimus 1 MG CAP PO SCH ×2 (09:30→20:45)
[2022-11-11] MEDS: NIFEdipine XL 90 MG TAB PO SCH (09:30)
[2022-11-11] MEDS: Fluconazole 100 MG TAB PO SCH ×2 (09:31→20:46)
[2022-11-11] MEDS: Acetaminophen 500 MG TAB PO SCH ×3 (09:31→20:46)
[2022-11-11] MEDS: Famotidine 20 MG TAB PO SCH (09:32)
[2022-11-11] MEDS: Cholecalciferol 1,000 UNITS (25 MCG) TAB PO SCH (09:32)
[2022-11-11] MEDS ORDERED: Sodium Chloride 0.9% 500 ML IV SCH (15:30)
[2022-11-11] MEDS ORDERED: Sodium Chloride 0.9% 1,000 ML IV SCH (17:45)
[2022-11-11] MEDS: Folic Acid 1 MG TAB PO SCH (20:45)
[2022-11-11] MEDS: Cyanocobalamin (Vitamin B-12) 1,000 MCG TAB PO SCH (20:45)
[2022-11-11] MEDS: Tacrolimus 0.5 MG CAP PO SCH (20:47)
[2022-11-11] MEDS: Ondansetron PF 4 MG/2 ML Vial IVP PRN (22:59)
[2022-11-12] MEDS: Loperamide HCl 2 MG CAP PO PRN ×2 (00:05→08:09)
[2022-11-12 05:34] LABS: Anion Gap 14 mmol/L (10-20); BUN (Urea Nitrogen) 12 mg/dL (9.8-20.1); Calc. Creatinine Clearance 34 mL/min (70-130); Calcium 7.9 mg/dL (7.8-10.44); Carbon Dioxide 22 mmol/L (22-29); Chloride 107 mmol/L (98-107); Estimated GFR 47; Glucose 111 mg/dL (70-105); Potassium 3.9 mmol/L (3.5-5.1); Sodium 139 mmol/L (136-145)
[2022-11-12 05:39] LABS: Magnesium 0.9 mg/dL (1.6-2.6)
[2022-11-12] MEDS ORDERED: Magnesium Sulfate In Water 4 GM in Premix Bag 1 BAG IVPB SCH (05:45)
[2022-11-12] MEDS ORDERED: Magnesium 2 GM/50 ML(in water) 2 GM in Premix Bag 1 BAG IVPB SCH ×2 (07:30→13:30)
[2022-11-12] MEDS: Famotidine 20 MG TAB PO SCH (08:08)
[2022-11-12] MEDS: Fluconazole 100 MG TAB PO SCH ×2 (08:09→21:01)
[2022-11-12] MEDS: Cholecalciferol 1,000 UNITS (25 MCG) TAB PO SCH (08:10)
[2022-11-12] MEDS: Acetaminophen 500 MG TAB PO SCH ×3 (08:11→20:58)
[2022-11-12] MEDS: Tacrolimus 1 MG CAP PO SCH ×2 (08:33→21:00)
[2022-11-12] MEDS ORDERED: predniSONE 5 MG TAB PO SCH (09:15)
[2022-11-12] MEDS: Dextrose 5%-Lactated Ringers 1,000 ML IV SCH ×2 (09:25→15:03)
[2022-11-12 11:56] LABS: Bacteria/HPF None Seen HPF (None Seen); Bilirubin Negative (Negative); Blood, Urine Negative (Negative); Clarity Clear (Clear); Glucose, Urine (Dipstick) 100 mg/dL (Negative); Ketone, Urine Negative (Negative); Leukocyte 25 Leu/uL (Negative); Nitrite Negative (Negative); Protein, Urine (Dipstick) Negative (Neg-Trace); RBC/HPF 0-3 HPF (0-3); Specific Gravity, Urine 1.008 (1.002-1.036); Squamous Epithelial None Seen HPF (0-3); Urobilinogen Normal mg/dL (Less than 2); WBC/HPF 0-3 HPF (0-3)
[2022-11-12 12:17] LABS: Creatinine, Urine 49.49 mg/dL (47-110)
[2022-11-12] MEDS: Cyanocobalamin (Vitamin B-12) 1,000 MCG TAB PO SCH (20:58)
[2022-11-12] MEDS: Folic Acid 1 MG TAB PO SCH (21:01)
[2022-11-12] MEDS: Tacrolimus 0.5 MG CAP PO SCH (21:01)
[2022-11-13] MEDS: Dextrose 5%-Lactated Ringers 1,000 ML IV SCH ×3 (00:03→14:26)
[2022-11-13 08:06] LABS: ALT (SGPT) 11 U/L (8-55); AST (SGOT) 12 U/L (5-34); Albumin 3.3 g/dL (3.5-5.0); Alkaline Phosphatase 46 U/L (40-110); Anion Gap 15 mmol/L (10-20); BUN (Urea Nitrogen) 4 mg/dL (9.8-20.1); Bilirubin, Total 0.3 mg/dL (0.2-1.2); Calc. Creatinine Clearance 58 mL/min (70-130); Carbon Dioxide 23 mmol/L (22-29); Chloride 106 mmol/L (98-107); Estimated GFR 89; Globulin 2.2 g/dL (2.4-3.5); Glucose 142 mg/dL (70-105); Potassium 2.9 mmol/L (3.5-5.1); Protein, Total 5.5 g/dL (6.0-8.3); Sodium 141 mmol/L (136-145)
[2022-11-13] MEDS: Famotidine 20 MG TAB PO SCH (08:25)
[2022-11-13] MEDS: Fluconazole 100 MG TAB PO SCH (08:25)
[2022-11-13] MEDS: Tacrolimus 1 MG CAP PO SCH (08:25)
[2022-11-13] MEDS: Acetaminophen 500 MG TAB PO SCH ×2 (08:25→14:28)
[2022-11-13] MEDS: Cholecalciferol 1,000 UNITS (25 MCG) TAB PO SCH (08:25)
[2022-11-13] MEDS: Potassium Chloride 20 MEQ TAB PO SCH ×2 (08:40→14:27)
[2022-11-13] MEDS ORDERED: predniSONE 5 MG TAB PO SCH (09:00)
[2022-11-13 12:21] VITALS: BP 118/71; TEMP 98.4
== END 2022-11-13 15:20 | disposition home or self-care (01) | DRG 871 ==
LOC: ERS 20:39 → IMCU/EMU 22:50 → T4-A 10-17 17:59 → SURG B 10-20 20:23
PROVIDERS: ADMIT Student in an Organized Health Care Education/Training Program; ATTEND Hospitalist
PROC: 3E03329 Introduction of Other Anti-infective into Peripheral Vein, Percutaneous Approach (ICD-10-PCS; 2022-10-14)
PROC: 009U3ZX Drainage of Spinal Canal, Percutaneous Approach, Diagnostic (ICD-10-PCS; principal; 2022-10-16)
PROC: B01BZZZ Fluoroscopy of Spinal Cord (ICD-10-PCS; 2022-10-16)
PROC: 009U3ZX Drainage of Spinal Canal, Percutaneous Approach, Diagnostic (ICD-10-PCS; 2022-11-06)
PROC: B01BZZZ Fluoroscopy of Spinal Cord (ICD-10-PCS; 2022-11-06)
DX: A41.89 Other specified sepsis (principal); B37.5 Candidal meningitis; B45.1 Cerebral cryptococcosis; E22.2 Syndrome of inappropriate secretion of antidiuretic hormone; Z94.0 Kidney transplant status; K50.90 Crohn's disease, unspecified, without complications; D84.821 Immunodeficiency due to drugs; N17.9 Acute kidney failure, unspecified; G43.909 Migraine, unspecified, not intractable, without status migrainosus; Z20.822 Contact with and (suspected) exposure to COVID-19; T45.1X5A Adverse effect of antineoplastic and immunosuppressive drugs, initial encounter; E83.39 Other disorders of phosphorus metabolism; E87.6 Hypokalemia; B37.7 Candidal sepsis; N18.9 Chronic kidney disease, unspecified; I12.9 Hypertensive chronic kidney disease with stage 1 through stage 4 chronic kidney disease, or unspecified chronic kidney disease; Z79.899 Other long term (current) drug therapy; Z98.51 Tubal ligation status; Z87.891 Personal history of nicotine dependence
CPT/HCPCS: 36415; 62270; 70450; 70553; 71045; 74176; 80048; 80053; 80076; 80197; 81001; 82570; 82945; 83036; 83605; 83630; 83690; 83735; 83930; 83935; 84100; 84157; 84300; 85025; 85060; 85652; 86140; 86480; 87040; 87070; 87077; 87086; 87102; 87106; 87149; 87205; 87328; 87329; 87497; 87529; 87798; 87811; 87899; 89051; 93005; 96365; 96374; 96375; A4217; C9113; J0133; J0289; J0290; J0696; J1200; J1650; J1885; J2060; J2185; J2270; J2405; J2550; J2765; J2930; J3030; J3370; J3475; J3490; J7030; J7050; J7070; J7131; J7507; J7512; J7517; Q0162; Q0163; U0002

== ENCOUNTER 2022-12-03 12:04 | Emergency (ER) | payer OTHER ==
[2022-12-03 12:47] LABS: Hemoglobin 12.3 g/dL (12.0-16.0); Mean Corpuscular HGB CONC 33.5 g/dL (32.0-36.0); Mean Corpuscular Hemoglobin 31.8 pg (27.0-31.0); Mean Corpuscular Volume 94.8 fl (78.0-98.0); Mean Platelet Volume 6.9 fL (7.4-10.4); Platelet Count 244 10x3/uL (130-400); RBC Distribution Width 13.8 % (11.5-14.5); Red Blood Cell (RBC) Count 3.87 mill/uL (4.20-5.40); White Blood Cell (WBC) Count 19.5 10x3/uL (4.8-10.8)
[2022-12-03] MEDS ORDERED: Ondansetron PF 4 MG/2 ML Vial ONE (12:54)
[2022-12-03 13:06] LABS: ALT (SGPT) 21 U/L (8-55); AST (SGOT) 20 U/L (5-34); Albumin 4.3 g/dL (3.5-5.0); Alkaline Phosphatase 60 U/L (40-110); Anion Gap 16 mmol/L (10-20); BUN (Urea Nitrogen) 41 mg/dL (9.8-20.1); Bilirubin, Total 0.8 mg/dL (0.2-1.2); Calc. Creatinine Clearance 0 mL/min (70-130); Calcium 8.8 mg/dL (7.8-10.44); Carbon Dioxide 13 mmol/L (22-29); Chloride 102 mmol/L (98-107); Estimated GFR 28; Globulin 3.2 g/dL (2.4-3.5); Glucose 152 mg/dL (70-105); Potassium 5.2 mmol/L (3.5-5.1); Protein, Total 7.5 g/dL (6.0-8.3); Sodium 126 mmol/L (136-145)
[2022-12-03 13:16] LABS: Lymphocytes 4 % (21-51); MDiff Complete? YES; Monocytes 10 % (0-10); Neutrophil 86 % (42-75); Platelet Morphology Comment Appears Adequate; RBC Morphology Normal
[2022-12-03] MEDS ORDERED: Metoclopramide HCl 10 MG/2 ML VIAL ONE (13:33)
[2022-12-03] MEDS ORDERED: Morphine 4 MG/ML VIAL ONE (13:33)
[2022-12-03] MEDS ORDERED: Acetaminophen 500 MG TAB ONE (13:33)
[2022-12-03] MEDS ORDERED: diphenhydrAMINE 50 MG/ML VIAL ONE (13:35)
[2022-12-03] MEDS ORDERED: Lidocaine 1% w/Epinephrine 1:100K 20 ML VIAL ONE (15:21)
[2022-12-03 15:33] LABS: SARS-CoV-2 NAA Rapid Test Not Detected (NotDetected)
[2022-12-03 15:50] LABS: Lactic Acid 0.8 mmol/L (0.5-2.2)
[2022-12-03 16:24] LABS: Color Of CSF Supernatant COLORLESS (Colorless); Tube # 3; Unspun CSF Color COLORLESS (Colorless)
[2022-12-03] MEDS ORDERED: cefTRIAXone\\ROCEPHIN 2 GM VIAL ONE (16:36)
[2022-12-03 16:38] LABS: CSF, Glucose 75 mg/dl (40-70); CSF, Protein 37 mg/dL (15-40)
[2022-12-03 16:39] LABS: CSF Source CSF; Clarity Clear (Clear); Tube # 4
[2022-12-03 16:40] LABS: CSF Source CSF; Clarity Clear (Clear); Tube # 1
[2022-12-03 17:17] LABS: Cell Count Non Hematic 20 %; Lymphocytes 45 %; Segmented Neutrophils 35 %
[2022-12-03] MEDS ORDERED: Vancomycin HCl 500 MG VIAL ONE (17:30)
== END 2022-12-03 19:40 | disposition short-term general hospital (02) ==
LOC: ERS 12:04
DX: A41.9 Sepsis, unspecified organism (principal); I10 Essential (primary) hypertension; Z20.822 Contact with and (suspected) exposure to COVID-19
CPT/HCPCS: 0240U; 70450; 71045; 80053; 82945; 83605; 84157; 85025; 86612 ×2; 86635 ×2; 86698 ×3; 87040; 87077; 87186; 89051; 93005; 36415; 62270; 85060; 96361; 96365; 96367; 96375; J0696; J1200; J2270; J2405; J2765; J3370

== ENCOUNTER 2023-01-13 10:56 | Inpatient (IN) | payer OTHER, MEDICAID ==
[2023-01-13 12:23] LABS: ALT (SGPT) 16 U/L (8-55); AST (SGOT) 18 U/L (5-34); Albumin 4.4 g/dL (3.5-5.0); Alkaline Phosphatase 73 U/L (40-110); Anion Gap 18 mmol/L (10-20); BUN (Urea Nitrogen) 42 mg/dL (9.8-20.1); Bilirubin, Total 0.3 mg/dL (0.2-1.2); Calc. Creatinine Clearance 0 mL/min (70-130); Calcium 9.8 mg/dL (7.8-10.44); Carbon Dioxide 19 mmol/L (22-29); Chloride 98 mmol/L (98-107); Estimated GFR 15; Globulin 3.3 g/dL (2.4-3.5); Glucose 278 mg/dL (70-105); Magnesium 1.4 mg/dL (1.6-2.6); Potassium 4.7 mmol/L (3.5-5.1); Protein, Total 7.7 g/dL (6.0-8.3); Sodium 130 mmol/L (136-145)
[2023-01-13] MEDS ORDERED: Magnesium 2 GM/50 ML BAG (IN WATER) ONE (13:47)
[2023-01-13 15:39] LABS: Bacteria/HPF None Seen HPF (None Seen); Bilirubin Negative (Negative); Blood, Urine Negative (Negative); Clarity Clear (Clear); Glucose, Urine (Dipstick) 70 mg/dL (Negative); Ketone, Urine Negative (Negative); Leukocyte 250 Leu/uL (Negative); Nitrite Negative (Negative); Protein, Urine (Dipstick) 50 mg/dL (Neg-Trace); RBC/HPF 0-3 HPF (0-3); Specific Gravity, Urine 1.006 (1.002-1.036); Squamous Epithelial 0-3 HPF (0-3); Urobilinogen Normal mg/dL (Less than 2); pH, Urine 6.5 (5.0-9.0)
[2023-01-13 16:09] LABS: #Eosinphils 0.1 thou/uL (0.0-0.7); #Lymphocytes 1.1 thou/uL (1.20-3.40); #Monocytes 0.4 thou/uL (0.11-0.59); #Neutrophils 7.1 thou/uL (1.40-6.50); %Basophils 0.1 % (0.0-1.0); %Eosinophils 0.7 % (0.0-10.0); %Lymphocytes 13.1 % (21.0-51.0); %Monocytes 4.8 % (0.0-10.0); %Neutrophils 81.4 % (42.0-75.0); Hemoglobin 11.5 g/dL (12.0-16.0); Mean Corpuscular HGB CONC 34.4 g/dL (32.0-36.0); Mean Corpuscular Hemoglobin 32.2 pg (27.0-31.0); Mean Corpuscular Volume 93.5 fl (78.0-98.0); Mean Platelet Volume 6.7 fL (7.4-10.4); Platelet Count 231 10x3/uL (130-400); RBC Distribution Width 13.1 % (11.5-14.5); Red Blood Cell (RBC) Count 3.58 mill/uL (4.20-5.40); White Blood Cell (WBC) Count 8.7 10x3/uL (4.8-10.8)
[2023-01-13] MEDS ORDERED: cefTRIAXone (ROCEPHIN) 2 GM VIAL ONE (17:48)
[2023-01-13] MEDS ORDERED: Ondansetron ODT 4 MG TAB SL PRN (21:15)
[2023-01-13] MEDS ORDERED: Ondansetron PF 4 MG/2 ML Vial IVP PRN (21:15)
[2023-01-13] MEDS: Sodium Chloride 0.9% 1,000 ML IV SCH (22:08)
[2023-01-13 22:18] VITALS: BMI 18.8
[2023-01-13] MEDS ORDERED: hydrALAZINE 20 MG/ML VIAL SLOW IVP PRN (23:10)
[2023-01-14] MEDS: Sodium Chloride 0.9% 1,000 ML IV SCH ×2 (05:58→10:54)
[2023-01-14 07:52] LABS: Hemoglobin 11.3 g/dL (12.0-16.0); Mean Corpuscular HGB CONC 32.9 g/dL (32.0-36.0); Mean Corpuscular Hemoglobin 31.3 pg (27.0-31.0); Mean Platelet Volume 6.6 fL (7.4-10.4); Platelet Count 239 10x3/uL (130-400); RBC Distribution Width 13.2 % (11.5-14.5); Red Blood Cell (RBC) Count 3.62 mill/uL (4.20-5.40); White Blood Cell (WBC) Count 6.9 10x3/uL (4.8-10.8)
[2023-01-14 08:13] LABS: Anion Gap 16 mmol/L (10-20); BUN (Urea Nitrogen) 33 mg/dL (9.8-20.1); Calc. Creatinine Clearance 22 mL/min (70-130); Calcium 9.1 mg/dL (7.8-10.44); Carbon Dioxide 20 mmol/L (22-29); Chloride 107 mmol/L (98-107); Estimated GFR 23; Glucose 102 mg/dL (70-105); Potassium 4.8 mmol/L (3.5-5.1); Sodium 138 mmol/L (136-145)
[2023-01-14] MEDS ORDERED: cloNIDine 0.1mg/24 Hour PATCH TD SCH (09:00)
[2023-01-14] MEDS ORDERED: Ondansetron ODT 4 MG TAB PO PRN (09:16)
[2023-01-14 09:17] LABS: Band 1 % (5-11); Eosinophils 5 % (0-10); Lymphocytes 20 % (21-51); MDiff Complete? YES; Monocytes 6 % (0-10); Neutrophil 68 % (42-75); Platelet Morphology Comment Appears Adequate; Polychromasia SLIGHT = 2-3 cells (100X) (0-2/hpf); Small Platelets SLIGHT
[2023-01-14] MEDS ORDERED: predniSONE 5 MG TAB PO SCH (09:30)
[2023-01-14] MEDS ORDERED: Tacrolimus 0.5 MG CAP PO SCH ×3 (09:30→21:00)
[2023-01-14] MEDS ORDERED: NIFEdipine XL 30 MG TAB PO SCH (09:30)
[2023-01-14] MEDS ORDERED: Fluconazole 100 MG TAB PO SCH (09:30)
[2023-01-14] MEDS: Sodium Bicarbonate Tab 325 MG TAB PO SCH ×2 (14:32→20:58)
[2023-01-14] MEDS ORDERED: Cholecalciferol 1,000 UNITS (25 MCG) TAB PO SCH (14:45)
[2023-01-14] MEDS: Acetaminophen 325 MG TAB PO PRN (14:55)
[2023-01-14] MEDS ORDERED: Non-Formulary Item 1 EACH (Sodium Bicarbonate [Sodium Bicarbonate] 650 MG Tablet) PO SCH (15:00)
[2023-01-14] MEDS: cefTRIAXone\\ROCEPHIN 1 GM in Sodium Chloride 0.9% 100 ML IVPB SCH (17:21)
[2023-01-14] MEDS: Fluconazole 100 MG TAB PO SCH (20:57)
[2023-01-15] MEDS: Sodium Chloride 0.9% 1,000 ML IV SCH ×5 (00:29→20:24)
[2023-01-15] MEDS: Acetaminophen 325 MG TAB PO PRN (04:11)
[2023-01-15] MEDS ORDERED: Lorazepam 2 MG/ML VIAL ONE (04:14)
[2023-01-15] MEDS ORDERED: Morphine 4 MG/ML VIAL ONE (04:24)
[2023-01-15] MEDS ORDERED: Lorazepam 2 MG/ML VIAL SLOW IVP SCH (04:30)
[2023-01-15] MEDS ORDERED: Ondansetron PF 4 MG/2 ML Vial IVP SCH (04:30)
[2023-01-15] MEDS ORDERED: Acetaminophen 325 MG TAB PO PRN (04:31)
[2023-01-15] MEDS: Morphine 4 MG/ML VIAL SLOW IVP PRN (04:37)
[2023-01-15 07:15] LABS: Anion Gap 16 mmol/L (10-20); BUN (Urea Nitrogen) 23 mg/dL (9.8-20.1); Calc. Creatinine Clearance 31 mL/min (70-130); Calcium 9.2 mg/dL (7.8-10.44); Carbon Dioxide 18 mmol/L (22-29); Chloride 107 mmol/L (98-107); Estimated GFR 33; Glucose 118 mg/dL (70-105); Magnesium 1.4 mg/dL (1.6-2.6); Potassium 3.7 mmol/L (3.5-5.1); Sodium 137 mmol/L (136-145)
[2023-01-15 07:35] LABS: Hemoglobin 11.5 g/dL (12.0-16.0); Mean Corpuscular Hemoglobin 31.2 pg (27.0-31.0); Mean Corpuscular Volume 94.7 fl (78.0-98.0); Mean Platelet Volume 6.6 fL (7.4-10.4); Platelet Count 211 10x3/uL (130-400); RBC Distribution Width 13.2 % (11.5-14.5); Red Blood Cell (RBC) Count 3.67 mill/uL (4.20-5.40); White Blood Cell (WBC) Count 7.5 10x3/uL (4.8-10.8)
[2023-01-15 08:19] LABS: Band 12 % (5-11); Eosinophils 2 % (0-10); Lymphocytes 21 % (21-51); MDiff Complete? YES; Monocytes 12 % (0-10); Neutrophil 52 % (42-75); Platelet Morphology Comment Appears Adequate; RBC Morphology Normal; Reactive Lymphocytes 1 % (0-10)
[2023-01-15] MEDS: Tacrolimus 0.5 MG CAP PO SCH ×2 (08:55→20:27)
[2023-01-15] MEDS: Sodium Bicarbonate Tab 325 MG TAB PO SCH ×3 (08:55→20:46)
[2023-01-15] MEDS: Fluconazole 100 MG TAB PO SCH ×2 (08:56→20:26)
[2023-01-15] MEDS: Famotidine 20 MG TAB PO SCH (08:56)
[2023-01-15] MEDS: predniSONE 5 MG TAB PO SCH (08:57)
[2023-01-15] MEDS: Cholecalciferol 1,000 UNITS (25 MCG) TAB PO SCH (08:57)
[2023-01-15] MEDS ORDERED: Magnesium 2 GM/50 ML(in water) 2 GM in Premix Bag 1 BAG IVPB SCH (09:00)
[2023-01-15] MEDS: NIFEdipine XL 30 MG TAB PO SCH (09:00)
[2023-01-15] MEDS ORDERED: Tacrolimus 1 MG CAP PO SCH (09:00)
[2023-01-15] MEDS ORDERED: ALPRAZolam 0.25 MG TAB PO SCH ×2 (13:00→15:00)
[2023-01-15] MEDS: cefTRIAXone\\ROCEPHIN 1 GM in Sodium Chloride 0.9% 100 ML IVPB SCH (18:03)
[2023-01-15] MEDS: ALPRAZolam 0.25 MG TAB PO SCH (20:27)
[2023-01-16] MEDS: Acetaminophen 325 MG TAB PO PRN (04:45)
[2023-01-16 06:41] LABS: #Eosinphils 0.1 thou/uL (0.0-0.7); #Lymphocytes 1.1 thou/uL (1.20-3.40); #Monocytes 0.6 thou/uL (0.11-0.59); #Neutrophils 4.5 thou/uL (1.40-6.50); %Basophils 0.4 % (0.0-1.0); %Eosinophils 1.9 % (0.0-10.0); %Lymphocytes 17.7 % (21.0-51.0); %Monocytes 9.1 % (0.0-10.0); Hemoglobin 11.4 g/dL (12.0-16.0); Mean Corpuscular HGB CONC 34.2 g/dL (32.0-36.0); Mean Corpuscular Hemoglobin 32.4 pg (27.0-31.0); Mean Corpuscular Volume 94.7 fl (78.0-98.0); Mean Platelet Volume 6.5 fL (7.4-10.4); Platelet Count 167 10x3/uL (130-400); Red Blood Cell (RBC) Count 3.53 mill/uL (4.20-5.40); White Blood Cell (WBC) Count 6.3 10x3/uL (4.8-10.8)
[2023-01-16 07:03] LABS: Anion Gap 15 mmol/L (10-20); BUN (Urea Nitrogen) 16 mg/dL (9.8-20.1); Calc. Creatinine Clearance 29 mL/min (70-130); Calcium 8.8 mg/dL (7.8-10.44); Carbon Dioxide 18 mmol/L (22-29); Chloride 106 mmol/L (98-107); Estimated GFR 31; Glucose 119 mg/dL (70-105); Potassium 3.7 mmol/L (3.5-5.1); Sodium 135 mmol/L (136-145)
[2023-01-16] MEDS: Cholecalciferol 1,000 UNITS (25 MCG) TAB PO SCH (09:10)
[2023-01-16] MEDS: NIFEdipine XL 30 MG TAB PO SCH (09:10)
[2023-01-16] MEDS: predniSONE 5 MG TAB PO SCH (09:10)
[2023-01-16] MEDS: Famotidine 20 MG TAB PO SCH (09:11)
[2023-01-16] MEDS: Fluconazole 100 MG TAB PO SCH ×2 (09:11→21:28)
[2023-01-16] MEDS: Sodium Bicarbonate Tab 325 MG TAB PO SCH ×3 (09:12→19:35)
[2023-01-16] MEDS: Tacrolimus 0.5 MG CAP PO SCH ×2 (09:12→19:38)
[2023-01-16] MEDS: ALPRAZolam 0.25 MG TAB PO SCH ×3 (09:12→19:35)
[2023-01-16 13:53] LABS: Bacteria/HPF None Seen HPF (None Seen); Bilirubin Negative (Negative); Blood, Urine Negative (Negative); Clarity Clear (Clear); Glucose, Urine (Dipstick) 100 mg/dL (Negative); Ketone, Urine Negative (Negative); Leukocyte Negative Leu/uL (Negative); Nitrite Negative (Negative); Protein, Urine (Dipstick) 30 mg/dL (Neg-Trace); RBC/HPF 0-3 HPF (0-3); Specific Gravity, Urine 1.007 (1.002-1.036); Squamous Epithelial 0-3 HPF (0-3); Urobilinogen Normal mg/dL (Less than 2); WBC/HPF 0-3 HPF (0-3); pH, Urine 6.5 (5.0-9.0)
[2023-01-16] MEDS: Sodium Chloride 0.9% 1,000 ML IV SCH ×2 (15:02→23:08)
[2023-01-16] MEDS: cefTRIAXone\\ROCEPHIN 1 GM in Sodium Chloride 0.9% 100 ML IVPB SCH (17:27)
[2023-01-16] MEDS: Morphine 4 MG/ML VIAL SLOW IVP PRN (21:27)
[2023-01-17] MEDS: Sodium Chloride 0.9% 1,000 ML IV SCH (04:35)
[2023-01-17 06:59] LABS: Hemoglobin 11.8 g/dL (12.0-16.0); Mean Corpuscular HGB CONC 34.8 g/dL (32.0-36.0); Mean Corpuscular Hemoglobin 33.1 pg (27.0-31.0); Mean Corpuscular Volume 95.4 fl (78.0-98.0); Mean Platelet Volume 6.5 fL (7.4-10.4); Platelet Count 190 10x3/uL (130-400); RBC Distribution Width 13.1 % (11.5-14.5); Red Blood Cell (RBC) Count 3.57 mill/uL (4.20-5.40); White Blood Cell (WBC) Count 6.3 10x3/uL (4.8-10.8)
[2023-01-17 07:12] LABS: Anion Gap 13 mmol/L (10-20); BUN (Urea Nitrogen) 17 mg/dL (9.8-20.1); Calc. Creatinine Clearance 34 mL/min (70-130); Calcium 9.3 mg/dL (7.8-10.44); Carbon Dioxide 21 mmol/L (22-29); Chloride 106 mmol/L (98-107); Estimated GFR 38; Glucose 120 mg/dL (70-105); Potassium 3.8 mmol/L (3.5-5.1); Sodium 136 mmol/L (136-145)
[2023-01-17 07:54] LABS: Band 8 % (5-11); Lymphocytes 10 % (21-51); MDiff Complete? YES; Monocytes 4 % (0-10); Neutrophil 71 % (42-75); Platelet Morphology Comment Appears Adequate; RBC Morphology Normal; Reactive Lymphocytes 7 % (0-10)
[2023-01-17] MEDS: NIFEdipine XL 30 MG TAB PO SCH (09:06)
[2023-01-17] MEDS: Sodium Bicarbonate Tab 325 MG TAB PO SCH ×2 (09:07→14:03)
[2023-01-17] MEDS: predniSONE 5 MG TAB PO SCH (09:07)
[2023-01-17] MEDS: Fluconazole 100 MG TAB PO SCH (09:07)
[2023-01-17] MEDS: Cholecalciferol 1,000 UNITS (25 MCG) TAB PO SCH (09:07)
[2023-01-17] MEDS: Tacrolimus 0.5 MG CAP PO SCH (09:07)
[2023-01-17] MEDS: Famotidine 20 MG TAB PO SCH (09:07)
[2023-01-17] MEDS: ALPRAZolam 0.25 MG TAB PO SCH ×2 (09:07→14:03)
[2023-01-17 14:08] VITALS: BP 120/67; TEMP 98
[2023-01-19 07:12] LABS: Tacrolimus 8.2 ng/mL (2.0-20.0)
== END 2023-01-17 14:38 | disposition home or self-care (01) | DRG 682 ==
LOC: ERS 10:56 → T4-A 18:32 → OBSVTOIN 01-14 13:52
PROVIDERS: ADMIT Family Medicine; ATTEND Internal Medicine
DX: N17.9 Acute kidney failure, unspecified (principal); B45.1 Cerebral cryptococcosis; E87.1 Hypo-osmolality and hyponatremia; K50.90 Crohn's disease, unspecified, without complications; N39.0 Urinary tract infection, site not specified; Z94.0 Kidney transplant status; D84.821 Immunodeficiency due to drugs; E83.42 Hypomagnesemia; T45.1X5A Adverse effect of antineoplastic and immunosuppressive drugs, initial encounter; Z79.52 Long term (current) use of systemic steroids; Z79.899 Other long term (current) drug therapy; Z94.9 Transplanted organ and tissue status, unspecified
CPT/HCPCS: 36415; 36416; 80048; 80053; 80197; 81003; 81015; 83735; 85025; 96365; 96367; G0378; J0360; J0696; J2060; J2270; J2405; J3475; J3490; J7050; J7507; J7512; Q0162

== ENCOUNTER 2023-04-10 10:44 | Inpatient (IN) | payer OTHER ==
[2023-04-10 11:46] LABS: #Basophils 0.1 thou/uL (0.0-0.2); #Eosinphils 0.1 thou/uL (0.0-0.7); #Monocytes 0.6 thou/uL (0.11-0.59); #Neutrophils 16.2 thou/uL (1.40-6.50); %Basophils 0.3 % (0.0-1.0); %Eosinophils 0.7 % (0.0-10.0); %Lymphocytes 3.2 % (21.0-51.0); %Monocytes 3.6 % (0.0-10.0); %Neutrophils 91.6 % (42.0-75.0); Mean Corpuscular HGB CONC 31.8 g/dL (32.0-36.0); Mean Corpuscular Hemoglobin 30.1 pg (27.0-31.0); Mean Corpuscular Volume 94.6 fl (78.0-98.0); Mean Platelet Volume 8.9 fL (7.4-10.4); Platelet Count 446 10x3/uL (130-400); RBC Distribution Width 14.6 % (11.5-14.5); Red Blood Cell (RBC) Count 3.32 mill/uL (4.20-5.40); White Blood Cell (WBC) Count 17.7 10x3/uL (4.8-10.8)
[2023-04-10 12:03] LABS: ALT (SGPT) 11 U/L (8-55); AST (SGOT) 12 U/L (5-34); Albumin 3.6 g/dL (3.5-5.0); Alkaline Phosphatase 98 U/L (40-110); Anion Gap 15 mmol/L (10-20); BUN (Urea Nitrogen) 27 mg/dL (9.8-20.1); Bilirubin, Total 0.4 mg/dL (0.2-1.2); Calc. Creatinine Clearance 0 mL/min (70-130); Calcium 8.6 mg/dL (7.8-10.44); Carbon Dioxide 20 mmol/L (22-29); Chloride 99 mmol/L (98-107); Estimated GFR 19; Globulin 3.3 g/dL (2.4-3.5); Glucose 174 mg/dL (70-105); Potassium 5.3 mmol/L (3.5-5.1); Protein, Total 6.9 g/dL (6.0-8.3); Sodium 129 mmol/L (136-145)
[2023-04-10] MEDS ORDERED: Sodium Chloride 0.9% 1,000 ML IV SCH (15:15)
[2023-04-10 15:27] VITALS: BMI 16.1
[2023-04-10 15:34] LABS: Bacteria/HPF None Seen HPF (None Seen); Bilirubin Negative (Negative); Blood, Urine Negative (Negative); CAUTI Indications for Culture Pelvic or flank pain; Clarity Clear (Clear); Glucose, Urine (Dipstick) 50 mg/dL (Negative); Ketone, Urine Negative (Negative); Leukocyte 250 Leu/uL (Negative); Nitrite Negative (Negative); Protein, Urine (Dipstick) 20 mg/dL (Neg-Trace); RBC/HPF 0-3 HPF (0-3); Specific Gravity, Urine 1.006 (1.002-1.036); Squamous Epithelial None Seen HPF (0-3); Urobilinogen Normal mg/dL (Less than 2); WBC/HPF 21-50 HPF (0-3)
[2023-04-10 15:35] LABS: Urine Culture Reflex Yes Yes
[2023-04-10] MEDS: Sodium Chloride 0.9% 1,000 ML IV SCH ×2 (19:05→23:11)
[2023-04-10] MEDS: Sodium Bicarbonate Tab 325 MG TAB PO SCH (20:14)
[2023-04-10] MEDS ORDERED: Tacrolimus 1 MG CAP PO SCH ×3 (21:00→22:30)
[2023-04-10] MEDS ORDERED: Fluconazole 100 MG TAB PO SCH (22:30)
[2023-04-11] MEDS ORDERED: Amlodipine 5 MG TAB PO SCH (04:30)
[2023-04-11 05:57] LABS: #Eosinphils 0.1 thou/uL (0.0-0.7); #Monocytes 0.8 thou/uL (0.11-0.59); #Neutrophils 13.3 thou/uL (1.40-6.50); %Basophils 0.3 % (0.0-1.0); %Eosinophils 0.9 % (0.0-10.0); %Monocytes 5.3 % (0.0-10.0); %Neutrophils 85.8 % (42.0-75.0); Hemoglobin 9.6 g/dL (12.0-16.0); Mean Corpuscular HGB CONC 31.5 g/dL (32.0-36.0); Mean Corpuscular Hemoglobin 30.5 pg (27.0-31.0); Mean Corpuscular Volume 96.8 fl (78.0-98.0); Platelet Count 394 10x3/uL (130-400); RBC Distribution Width 14.7 % (11.5-14.5); Red Blood Cell (RBC) Count 3.15 mill/uL (4.20-5.40); White Blood Cell (WBC) Count 15.5 10x3/uL (4.8-10.8)
[2023-04-11 06:23] LABS: Anion Gap 13 mmol/L (10-20); BUN (Urea Nitrogen) 19 mg/dL (9.8-20.1); Calc. Creatinine Clearance 24 mL/min (70-130); Calcium 7.7 mg/dL (7.8-10.44); Carbon Dioxide 18 mmol/L (22-29); Chloride 108 mmol/L (98-107); Estimated GFR 29; Glucose 105 mg/dL (70-105); Potassium 5.4 mmol/L (3.5-5.1); Sodium 134 mmol/L (136-145)
[2023-04-11] MEDS: Sodium Chloride 0.9% 1,000 ML IV SCH ×3 (07:04→23:33)
[2023-04-11] MEDS ORDERED: NIFEdipine XL 30 MG TAB PO SCH (09:00)
[2023-04-11] MEDS ORDERED: Cholecalciferol 1,000 UNITS (25 MCG) TAB PO SCH (09:00)
[2023-04-11] MEDS: Fluconazole 100 MG TAB PO SCH ×4 (09:39→23:33)
[2023-04-11] MEDS: Sodium Bicarbonate Tab 325 MG TAB PO SCH ×3 (09:39→20:20)
[2023-04-11] MEDS: predniSONE 5 MG TAB PO SCH (09:39)
[2023-04-11] MEDS: Tacrolimus 0.5 MG CAP PO SCH (09:44)
[2023-04-11] MEDS: Acetaminophen 500 MG TAB PO PRN (19:31)
[2023-04-11] MEDS: Tacrolimus 1 MG CAP PO SCH (20:21)
[2023-04-11] MEDS ORDERED: Morphine 2 MG/ML VIAL SLOW IVP SCH (20:30)
[2023-04-12] MEDS: Ondansetron PF 4 MG/2 ML Vial IVP PRN ×2 (03:40→10:44)
[2023-04-12] MEDS ORDERED: Morphine 2 MG/ML VIAL SLOW IVP SCH (04:00)
[2023-04-12] MEDS ORDERED: Amlodipine 5 MG TAB PO PRN (04:06)
[2023-04-12] MEDS: Lorazepam 0.5 MG TAB PO PRN ×2 (05:39→16:30)
[2023-04-12] MEDS: Sodium Chloride 0.9% 1,000 ML IV SCH ×3 (08:00→23:39)
[2023-04-12] MEDS: Tacrolimus 0.5 MG CAP PO SCH (08:00)
[2023-04-12] MEDS: Sodium Bicarbonate Tab 325 MG TAB PO SCH ×3 (08:00→21:43)
[2023-04-12] MEDS: predniSONE 5 MG TAB PO SCH (08:00)
[2023-04-12 09:19] LABS: #Eosinphils 0.2 thou/uL (0.0-0.7); #Monocytes 0.8 thou/uL (0.11-0.59); #Neutrophils 13.1 thou/uL (1.40-6.50); %Basophils 0.3 % (0.0-1.0); %Lymphocytes 5.4 % (21.0-51.0); %Monocytes 5.4 % (0.0-10.0); %Neutrophils 87.4 % (42.0-75.0); Hemoglobin 9.9 g/dL (12.0-16.0); Mean Corpuscular HGB CONC 31.5 g/dL (32.0-36.0); Mean Corpuscular Hemoglobin 30.2 pg (27.0-31.0); Mean Corpuscular Volume 95.7 fl (78.0-98.0); Mean Platelet Volume 8.8 fL (7.4-10.4); Platelet Count 367 10x3/uL (130-400); RBC Distribution Width 14.8 % (11.5-14.5); Red Blood Cell (RBC) Count 3.28 mill/uL (4.20-5.40); White Blood Cell (WBC) Count 14.9 10x3/uL (4.8-10.8)
[2023-04-12 09:41] LABS: Anion Gap 17 mmol/L (10-20); BUN (Urea Nitrogen) 11 mg/dL (9.8-20.1); Calc. Creatinine Clearance 29 mL/min (70-130); Carbon Dioxide 17 mmol/L (22-29); Chloride 110 mmol/L (98-107); Estimated GFR 38; Glucose 143 mg/dL (70-105); Potassium 4.4 mmol/L (3.5-5.1); Sodium 140 mmol/L (136-145)
[2023-04-12] MEDS: Fluconazole 100 MG TAB PO SCH ×2 (10:44→23:37)
[2023-04-12] MEDS: Acetaminophen 500 MG TAB PO PRN ×2 (10:44→23:48)
[2023-04-12] MEDS ORDERED: Lorazepam 0.5 MG TAB PO PRN (21:38)
[2023-04-12] MEDS: Tacrolimus 1 MG CAP PO SCH (21:43)
[2023-04-13] MEDS: Sodium Chloride 0.9% 1,000 ML IV SCH ×3 (00:30→08:56)
[2023-04-13] MEDS ORDERED: Loperamide HCl 2 MG CAP PO SCH (04:30)
[2023-04-13 05:29] LABS: Hemoglobin 9.2 g/dL (12.0-16.0); Mean Corpuscular HGB CONC 31.5 g/dL (32.0-36.0); Mean Corpuscular Volume 95.1 fl (78.0-98.0); Mean Platelet Volume 8.6 fL (7.4-10.4); Platelet Count 346 10x3/uL (130-400); RBC Distribution Width 14.7 % (11.5-14.5); Red Blood Cell (RBC) Count 3.07 mill/uL (4.20-5.40); White Blood Cell (WBC) Count 13.2 10x3/uL (4.8-10.8)
[2023-04-13 05:53] LABS: Anion Gap 14 mmol/L (10-20); BUN (Urea Nitrogen) 9 mg/dL (9.8-20.1); Calc. Creatinine Clearance 30 mL/min (70-130); Calcium 7.1 mg/dL (7.8-10.44); Carbon Dioxide 14 mmol/L (22-29); Chloride 112 mmol/L (98-107); Estimated GFR 40; Glucose 125 mg/dL (70-105); Potassium 3.9 mmol/L (3.5-5.1); Sodium 136 mmol/L (136-145)
[2023-04-13] MEDS: Tacrolimus 0.5 MG CAP PO SCH (08:32)
[2023-04-13] MEDS: predniSONE 5 MG TAB PO SCH (08:32)
[2023-04-13] MEDS: Sodium Bicarbonate Tab 325 MG TAB PO SCH ×3 (08:32→20:01)
[2023-04-13] MEDS: Acetaminophen 500 MG TAB PO PRN (08:39)
[2023-04-13] MEDS: Fluconazole 100 MG TAB PO SCH ×2 (10:51→22:36)
[2023-04-13] MEDS: predniSONE 20 MG TAB PO SCH ×2 (11:36→11:49)
[2023-04-13] MEDS: Ondansetron PF 4 MG/2 ML Vial IVP PRN (13:59)
[2023-04-13] MEDS ORDERED: Vancomycin HCl 125 MG/5 ML (BATCHED) UDCUP PO SCH (18:00)
[2023-04-13] MEDS: Tacrolimus 1 MG CAP PO SCH (20:01)
[2023-04-13 21:08] LABS: Campy jejuni + coli by PCR Negative (Negative); STEC Shiga Toxin 1+2 Negative (Negative); Salmonella spp. by PCR Negative (Negative); Shigella spp + EIEC by PCR Negative (Negative)
[2023-04-14] MEDS: Sodium Chloride 0.9% 1,000 ML IV SCH ×2 (00:21→10:00)
[2023-04-14] MEDS: Ondansetron PF 4 MG/2 ML Vial IVP PRN (03:04)
[2023-04-14 04:29] VITALS: TEMP 98
[2023-04-14] MEDS ORDERED: predniSONE 20 MG TAB PO SCH (08:00)
[2023-04-14 08:14] LABS: Anion Gap 15 mmol/L (10-20); BUN (Urea Nitrogen) 11 mg/dL (9.8-20.1); Calc. Creatinine Clearance 33 mL/min (70-130); Carbon Dioxide 16 mmol/L (22-29); Chloride 110 mmol/L (98-107); Estimated GFR 45; Glucose 105 mg/dL (70-105); Potassium 5.2 mmol/L (3.5-5.1); Sodium 136 mmol/L (136-145)
[2023-04-14 08:22] LABS: Calcium 6.9 mg/dL (7.8-10.44)
[2023-04-14] MEDS ORDERED: Insulin Regular 300 UNITS/3 ML VIAL IVP SCH (08:45)
[2023-04-14] MEDS ORDERED: Dextrose 50% Abboject 50 ML SYRINGE SLOW IVP SCH (08:45)
[2023-04-14] MEDS ORDERED: Calcium Carbonate 500 MG ChewTAB PO SCH (09:00)
[2023-04-14] MEDS: Tacrolimus 0.5 MG CAP PO SCH (10:02)
[2023-04-14] MEDS: Sodium Bicarbonate Tab 325 MG TAB PO SCH (10:02)
[2023-04-14] MEDS: Fluconazole 100 MG TAB PO SCH (10:02)
[2023-04-14] MEDS: predniSONE 5 MG TAB PO SCH (10:03)
[2023-04-14] MEDS ORDERED: Loperamide HCl 2 MG CAP PO PRN (11:27)
[2023-04-14 12:44] VITALS: BP 143/90
[2023-04-15] MEDS ORDERED: cloNIDine 0.1mg/24 Hour PATCH TD SCH (09:00)
[2023-04-15 16:14] LABS: Tacrolimus 10.2 ng/mL (2.0-20.0)
[2023-04-16 09:12] LABS: Tacrolimus 6.8 ng/mL (2.0-20.0)
== END 2023-04-14 13:36 | disposition home or self-care (01) | DRG 699 ==
LOC: ERS 10:44 → ERHOLD 13:24 → 2SW 15:14 → OBSVTOIN 04-12 11:32
PROVIDERS: ADMIT Internal Medicine; ATTEND Internal Medicine
DX: T86.12 Kidney transplant failure (principal); D84.821 Immunodeficiency due to drugs; N17.9 Acute kidney failure, unspecified; K50.90 Crohn's disease, unspecified, without complications; E87.20 Acidosis, unspecified; E87.5 Hyperkalemia; I10 Essential (primary) hypertension; G43.909 Migraine, unspecified, not intractable, without status migrainosus; M81.0 Age-related osteoporosis without current pathological fracture; N18.30 Chronic kidney disease, stage 3 unspecified; E83.51 Hypocalcemia; Z98.890 Other specified postprocedural states; Z79.899 Other long term (current) drug therapy; Z98.51 Tubal ligation status
CPT/HCPCS: 36415; 76775; 80048; 80053; 80197; 81001; 82040; 83630; 85025; 85027; 87040; 87086; 87324; 87449; 87493; 87505; 93005; 96360; 96361; 96374; 96375; 96376; G0378; J1815; J2272; J2405; J7050; J7507; J7512; J7999

== ENCOUNTER 2023-04-18 10:02 | Day surgery (SDC) | payer OTHER ==
[~2023-04-18 10:02] MED LIST changes: +ADMIXTURE FEE IVPB SCH; -Acetaminophen 500 MG TAB PO SCH; +DEXTROSE IVPB SCH; +EPINEPHrine 1 MG/ML AMP IM PRN; -INFLIXIMAB ABDA IVPB SCH; +RISANKIZUMAB RZAA IVPB SCH; -SODIUM CHLORIDE 0.9% IVPB SCH; +Sodium Chloride 0.9% 500 ML IV PRN; +WATER IVPB SCH; -diphenhydrAMINE 25 MG CAP PO SCH; +diphenhydrAMINE 50 MG/ML VIAL IVP PRN
[2023-04-18 14:43] VITALS: BP 157/99; TEMP 98.2
== END 2023-04-18 12:25 | disposition home or self-care (01) ==
LOC: ONC/OP 10:02
PROVIDERS: ATTEND Internal Medicine Gastroenterology
DX: K50.80 Crohn's disease of both small and large intestine without complications (principal); Z94.0 Kidney transplant status
CPT/HCPCS: 96413

== ENCOUNTER 2023-05-16 09:52 | Day surgery (SDC) | payer OTHER ==
[~2023-05-16 09:52] MED LIST changes: -ADMIXTURE FEE IVPB SCH; +DEXTROSE 5% IVPB SCH; -DEXTROSE IVPB SCH; +EPINEPHrine 1 MG/ML VIAL IJ SCH; +SODIUM CHLORIDE 0.9% IVPB SCH; -Sodium Chloride 0.9% 500 ML IV PRN; +Sodium Chloride 0.9% 500 ML IVPB PRN; +Sodium Chloride 0.9% 500 ML IVPB SCH
[2023-05-16 10:13] VITALS: BP 137/88; TEMP 98.2
== END 2023-05-16 12:23 | disposition home or self-care (01) ==
LOC: ONC/OP 09:52
PROVIDERS: ATTEND Internal Medicine Gastroenterology
DX: K50.90 Crohn's disease, unspecified, without complications (principal)
CPT/HCPCS: 96413

== ENCOUNTER 2023-06-13 10:00 | Day surgery (SDC) | payer OTHER ==
[~2023-06-13 10:00] MED LIST changes: -EPINEPHrine 1 MG/ML VIAL IJ SCH; -SODIUM CHLORIDE 0.9% IVPB SCH; -Sodium Chloride 0.9% 500 ML IVPB SCH
[2023-06-13 10:21] VITALS: BP 131/94; TEMP 98.1
== END 2023-06-13 13:00 | disposition home or self-care (01) ==
LOC: ONC/OP 10:00
PROVIDERS: ATTEND Internal Medicine Gastroenterology
DX: K50.80 Crohn's disease of both small and large intestine without complications (principal); Z94.0 Kidney transplant status
CPT/HCPCS: 96413

== ENCOUNTER 2023-07-19 07:41 | Inpatient (IN) | payer OTHER ==
[2023-07-19] MEDS ORDERED: Metoclopramide HCl 10 MG/2 ML VIAL ONE (08:19)
[2023-07-19 08:47] LABS: #Basophils 0.1 thou/uL (0.0-0.2); #Monocytes 0.8 thou/uL (0.11-0.59); #Neutrophils 14.5 thou/uL (1.40-6.50); %Basophils 0.3 % (0.0-1.0); %Eosinophils 0.2 % (0.0-10.0); %Lymphocytes 10.2 % (21.0-51.0); %Monocytes 4.7 % (0.0-10.0); %Neutrophils 83.5 % (42.0-75.0); Hematocrit 37.2 % (36.0-47.0); Hemoglobin 12.8 g/dL (12.0-16.0); Mean Corpuscular HGB CONC 34.4 g/dL (32.0-36.0); Mean Corpuscular Hemoglobin 29.6 pg (27.0-31.0); Mean Corpuscular Volume 85.9 fl (78.0-98.0); Mean Platelet Volume 8.4 fL (7.4-10.4); Platelet Count 464 10x3/uL (130-400); RBC Distribution Width 14.6 % (11.5-14.5); Red Blood Cell (RBC) Count 4.33 mill/uL (4.20-5.40); White Blood Cell (WBC) Count 17.4 10x3/uL (4.8-10.8)
[2023-07-19] MEDS ORDERED: Morphine 4 MG/ML VIAL ONE (09:02)
[2023-07-19 09:11] LABS: ALT (SGPT) 10 U/L (8-55); AST (SGOT) 14 U/L (5-34); Albumin 4.2 g/dL (3.5-5.0); Alkaline Phosphatase 80 U/L (40-110); Anion Gap 24 mmol/L (10-20); BUN (Urea Nitrogen) 35 mg/dL (9.8-20.1); Bilirubin, Total 0.3 mg/dL (0.2-1.2); Calc. Creatinine Clearance 0 mL/min (70-130); Carbon Dioxide 21 mmol/L (22-29); Chloride 93 mmol/L (98-107); Estimated GFR 13; Globulin 3.6 g/dL (2.4-3.5); Glucose 185 mg/dL (70-105); Potassium 3.9 mmol/L (3.5-5.1); Protein, Total 7.8 g/dL (6.0-8.3); Sodium 134 mmol/L (136-145)
[2023-07-19] MEDS ORDERED: cefTRIAXone (ROCEPHIN) 2 GM VIAL ONE (09:31)
[2023-07-19] MEDS ORDERED: Vancomycin 1 GM/200 ML (FROZEN) BAG ONE (09:31)
[2023-07-19] MEDS ORDERED: Ampicillin 2 GM VIAL ONE (09:31)
[2023-07-19 11:28] LABS: Bilirubin Negative (Negative); Blood, Urine Trace (Negative); CAUTI Indications for Culture Pelvic or flank pain; Clarity Turbid (Clear); Glucose, Urine (Dipstick) Normal (Negative); Ketone, Urine Negative (Negative); Leukocyte 500 Leu/uL (Negative); Nitrite Negative (Negative); Protein, Urine (Dipstick) 70 mg/dL (Neg-Trace); RBC/HPF 21-50 HPF (0-3); Specific Gravity, Urine 1.007 (1.002-1.036); Squamous Epithelial 0-3 HPF (0-3); Urobilinogen Normal mg/dL (Less than 2); WBC/HPF Greater than 50 HPF (0-3); pH, Urine 7.5 (5.0-9.0)
[2023-07-19 11:31] LABS: Bacteria/HPF 1+ HPF (None Seen)
[2023-07-19 11:32] LABS: Urine Culture Reflex Yes Yes
[2023-07-19] MEDS ORDERED: Ondansetron ODT 4 MG TAB PO PRN (12:08)
[2023-07-19] MEDS ORDERED: Acetaminophen 325 MG TAB PO PRN (12:08)
[2023-07-19] MEDS ORDERED: Ondansetron PF 4 MG/2 ML Vial IVP PRN (12:08)
[2023-07-19] MEDS ORDERED: Amlodipine 5 MG TAB PO PRN (12:26)
[2023-07-19 12:55] LABS: Lactic Acid 1.9 mmol/L (0.5-2.2)
[2023-07-19] MEDS ORDERED: Ampicillin 2 GM in Sodium Chloride 0.9% 100 ML IVPB SCH (13:00)
[2023-07-19] MEDS: Sodium Chloride 0.9% 1,000 ML IV SCH (13:50)
[2023-07-19] MEDS ORDERED: Meropenem 1 GM in Sodium Chloride 0.9% 100 ML IVPB SCH (14:00)
[2023-07-19 14:01] VITALS: BMI 14.4
[2023-07-19] MEDS ORDERED: Vancomycin Dose by Levels Sliding Scale (Wt <71) FS SCH (14:30)
[2023-07-19] MEDS: Ondansetron PF 4 MG/2 ML Vial IVP PRN ×2 (14:48→20:44)
[2023-07-19] MEDS: Sodium Bicarbonate Tab 325 MG TAB PO SCH ×2 (14:49→20:56)
[2023-07-19] MEDS: Heparin 5,000 UNITS/ML VIAL SC SCH ×2 (14:49→20:58)
[2023-07-19] MEDS ORDERED: Meropenem 500 MG in Sodium Chloride 0.9% 100 ML IVPB SCH (15:00)
[2023-07-19] MEDS ORDERED: Non-Formulary Item 1 EACH (Sodium Bicarbonate [Sodium Bicarbonate] 650 MG Tablet) PO SCH (15:00)
[2023-07-19] MEDS: Fluconazole 100 MG TAB PO SCH (17:28)
[2023-07-19] MEDS ORDERED: Amlodipine 5 MG TAB PO SCH (17:45)
[2023-07-19] MEDS: Morphine 2 MG/ML VIAL SLOW IVP PRN (20:44)
[2023-07-19] MEDS: Acetaminophen 325 MG TAB PO PRN (20:56)
[2023-07-19] MEDS ORDERED: Vancomycin 1 GM in Premix Bag 1 BAG IVPB SCH ×2 (21:00)
[2023-07-19] MEDS ORDERED: Tacrolimus 1 MG CAP PO SCH (21:00)
[2023-07-19] MEDS ORDERED: Fluconazole 100 MG TAB PO SCH (21:00)
[2023-07-19] MEDS ORDERED: Tacrolimus 0.5 MG CAP PO SCH (21:00)
[2023-07-19] MEDS: Tacrolimus 0.5 MG CAP PO SCH ×2 (21:04→21:18)
[2023-07-20] MEDS: Sodium Chloride 0.9% 1,000 ML IV SCH ×5 (01:11→22:53)
[2023-07-20] MEDS: Meropenem 500 MG in Sodium Chloride 0.9% 100 ML IVPB SCH ×2 (03:57→14:36)
[2023-07-20] MEDS: Ondansetron PF 4 MG/2 ML Vial IVP PRN (04:06)
[2023-07-20] MEDS: Acetaminophen 325 MG TAB PO PRN ×2 (04:15→13:18)
[2023-07-20] MEDS: Morphine 2 MG/ML VIAL SLOW IVP PRN ×2 (04:17→14:44)
[2023-07-20] MEDS: Fluconazole 100 MG TAB PO SCH ×2 (06:16→17:34)
[2023-07-20 06:34] LABS: #Basophils 0.1 thou/uL (0.0-0.2); #Eosinphils 0.1 thou/uL (0.0-0.7); #Monocytes 0.7 thou/uL (0.11-0.59); #Neutrophils 18.6 thou/uL (1.40-6.50); %Basophils 0.2 % (0.0-1.0); %Eosinophils 0.3 % (0.0-10.0); %Monocytes 3.3 % (0.0-10.0); %Neutrophils 87.1 % (42.0-75.0); Hematocrit 34.9 % (36.0-47.0); Hemoglobin 11.2 g/dL (12.0-16.0); Mean Corpuscular HGB CONC 32.1 g/dL (32.0-36.0); Mean Corpuscular Hemoglobin 29.6 pg (27.0-31.0); Mean Platelet Volume 8.1 fL (7.4-10.4); Platelet Count 365 10x3/uL (130-400); RBC Distribution Width 15.2 % (11.5-14.5); Red Blood Cell (RBC) Count 3.78 mill/uL (4.20-5.40); White Blood Cell (WBC) Count 21.4 10x3/uL (4.8-10.8)
[2023-07-20 06:52] LABS: Mean Corpuscular Volume 92.3 fl (78.0-98.0)
[2023-07-20 07:06] LABS: ALT (SGPT) 11 U/L (8-55); AST (SGOT) 11 U/L (5-34); Albumin 3.5 g/dL (3.5-5.0); Alkaline Phosphatase 71 U/L (40-110); Anion Gap 17 mmol/L (10-20); BUN (Urea Nitrogen) 26 mg/dL (9.8-20.1); Bilirubin, Total 0.2 mg/dL (0.2-1.2); Calc. Creatinine Clearance 13 mL/min (70-130); Carbon Dioxide 25 mmol/L (22-29); Chloride 97 mmol/L (98-107); Estimated GFR 16; Globulin 3.2 g/dL (2.4-3.5); Glucose 117 mg/dL (70-105); Potassium 4.1 mmol/L (3.5-5.1); Protein, Total 6.7 g/dL (6.0-8.3); Sodium 135 mmol/L (136-145)
[2023-07-20] MEDS ORDERED: Tacrolimus 0.5 MG CAP PO SCH ×3 (07:30→09:00)
[2023-07-20] MEDS: Heparin 5,000 UNITS/ML VIAL SC SCH ×3 (08:31→20:48)
[2023-07-20] MEDS: Amlodipine 5 MG TAB PO SCH (08:31)
[2023-07-20] MEDS: Sodium Bicarbonate Tab 325 MG TAB PO SCH ×3 (08:31→20:47)
[2023-07-20] MEDS: predniSONE 5 MG TAB PO SCH (08:32)
[2023-07-20] MEDS ORDERED: FLU VACC QS2023-24(6MOS UP)/PF 60 MCG/0.5 ML SYRINGE IM ONE (09:00)
[2023-07-20 09:18] LABS: Vancomycin, Trough 15.2 ug/mL
[2023-07-20] MEDS: Tacrolimus 1 MG CAP PO SCH ×2 (09:27→20:47)
[2023-07-20] MEDS ORDERED: Vancomycin HCl 250 MG in Sodium Chloride 0.9% 100 ML IV SCH (10:00)
[2023-07-21] MEDS: Meropenem 500 MG in Sodium Chloride 0.9% 100 ML IVPB SCH (02:17)
[2023-07-21] MEDS: Fluconazole 100 MG TAB PO SCH ×2 (05:53→17:59)
[2023-07-21] MEDS: Sodium Chloride 0.9% 1,000 ML IV SCH ×3 (05:54→17:59)
[2023-07-21 05:58] LABS: #Eosinphils 0.1 thou/uL (0.0-0.7); #Monocytes 0.6 thou/uL (0.11-0.59); %Basophils 0.3 % (0.0-1.0); %Eosinophils 0.7 % (0.0-10.0); %Lymphocytes 8.5 % (21.0-51.0); %Monocytes 3.9 % (0.0-10.0); %Neutrophils 85.7 % (42.0-75.0); Hematocrit 33.4 % (36.0-47.0); Hemoglobin 10.8 g/dL (12.0-16.0); Mean Corpuscular HGB CONC 32.3 g/dL (32.0-36.0); Mean Corpuscular Hemoglobin 29.1 pg (27.0-31.0); Mean Platelet Volume 8.5 fL (7.4-10.4); Platelet Count 340 10x3/uL (130-400); Red Blood Cell (RBC) Count 3.71 mill/uL (4.20-5.40)
[2023-07-21 06:24] LABS: ALT (SGPT) 8 U/L (8-55); AST (SGOT) 10 U/L (5-34); Albumin 3.3 g/dL (3.5-5.0); Alkaline Phosphatase 68 U/L (40-110); Anion Gap 15 mmol/L (10-20); BUN (Urea Nitrogen) 17 mg/dL (9.8-20.1); Bilirubin, Total 0.2 mg/dL (0.2-1.2); Calc. Creatinine Clearance 17 mL/min (70-130); Calcium 8.1 mg/dL (7.8-10.44); Carbon Dioxide 21 mmol/L (22-29); Chloride 100 mmol/L (98-107); Estimated GFR 23; Globulin 2.9 g/dL (2.4-3.5); Glucose 94 mg/dL (70-105); Potassium 3.3 mmol/L (3.5-5.1); Protein, Total 6.2 g/dL (6.0-8.3); Sodium 133 mmol/L (136-145)
[2023-07-21] MEDS ORDERED: Potassium Chloride 20 MEQ TAB PO SCH (08:00)
[2023-07-21] MEDS: Sodium Bicarbonate Tab 325 MG TAB PO SCH ×3 (08:42→21:58)
[2023-07-21] MEDS: Amlodipine 5 MG TAB PO SCH (08:43)
[2023-07-21] MEDS: Tacrolimus 1 MG CAP PO SCH ×2 (08:43→21:58)
[2023-07-21] MEDS: predniSONE 5 MG TAB PO SCH (08:43)
[2023-07-21] MEDS: Heparin 5,000 UNITS/ML VIAL SC SCH ×3 (08:44→21:58)
[2023-07-21 11:52] LABS: Vancomycin, Random 12.8 ug/mL (See Comment)
[2023-07-21] MEDS: cefTRIAXone\\ROCEPHIN 2 GM in Sodium Chloride 0.9% 100 ML IVPB SCH (14:00)
[2023-07-21] MEDS: Acetaminophen 325 MG TAB PO PRN (17:59)
[2023-07-21] MEDS: Ondansetron PF 4 MG/2 ML Vial IVP PRN (19:32)
[2023-07-22] MEDS: Sodium Chloride 0.9% 1,000 ML IV SCH ×4 (01:04→16:49)
[2023-07-22] MEDS: Fluconazole 100 MG TAB PO SCH ×2 (06:01→16:48)
[2023-07-22 06:44] LABS: #Eosinphils 0.1 thou/uL (0.0-0.7); #Monocytes 0.5 thou/uL (0.11-0.59); #Neutrophils 8.2 thou/uL (1.40-6.50); %Basophils 0.3 % (0.0-1.0); %Lymphocytes 10.8 % (21.0-51.0); %Monocytes 4.8 % (0.0-10.0); %Neutrophils 82.1 % (42.0-75.0); Hematocrit 34.7 % (36.0-47.0); Mean Corpuscular HGB CONC 31.7 g/dL (32.0-36.0); Mean Corpuscular Hemoglobin 29.3 pg (27.0-31.0); Mean Corpuscular Volume 92.5 fl (78.0-98.0); Mean Platelet Volume 8.2 fL (7.4-10.4); Platelet Count 314 10x3/uL (130-400); RBC Distribution Width 15.1 % (11.5-14.5); Red Blood Cell (RBC) Count 3.75 mill/uL (4.20-5.40)
[2023-07-22 07:23] LABS: ALT (SGPT) 8 U/L (8-55); AST (SGOT) 10 U/L (5-34); Albumin 3.2 g/dL (3.5-5.0); Alkaline Phosphatase 66 U/L (40-110); Anion Gap 15 mmol/L (10-20); BUN (Urea Nitrogen) 11 mg/dL (9.8-20.1); Bilirubin, Total Less than 0.2 mg/dL (0.2-1.2); Calc. Creatinine Clearance 22 mL/min (70-130); Calcium 7.7 mg/dL (7.8-10.44); Carbon Dioxide 17 mmol/L (22-29); Chloride 109 mmol/L (98-107); Estimated GFR 31; Globulin 2.8 g/dL (2.4-3.5); Glucose 92 mg/dL (70-105); Potassium 3.6 mmol/L (3.5-5.1); Sodium 137 mmol/L (136-145)
[2023-07-22] MEDS: Amlodipine 5 MG TAB PO SCH (08:29)
[2023-07-22] MEDS: Sodium Bicarbonate Tab 325 MG TAB PO SCH ×3 (08:32→20:21)
[2023-07-22] MEDS: Tacrolimus 1 MG CAP PO SCH ×2 (08:33→20:21)
[2023-07-22] MEDS: Heparin 5,000 UNITS/ML VIAL SC SCH ×3 (08:33→20:21)
[2023-07-22] MEDS: predniSONE 5 MG TAB PO SCH (08:33)
[2023-07-22] MEDS: cefTRIAXone\\ROCEPHIN 2 GM in Sodium Chloride 0.9% 100 ML IVPB SCH (12:43)
[2023-07-23] MEDS: Sodium Chloride 0.9% 1,000 ML IV SCH ×2 (00:36→08:30)
[2023-07-23] MEDS: Fluconazole 100 MG TAB PO SCH ×2 (05:17→18:37)
[2023-07-23 06:59] LABS: Anion Gap 14 mmol/L (10-20); BUN (Urea Nitrogen) 7 mg/dL (9.8-20.1); Calc. Creatinine Clearance 27 mL/min (70-130); Calcium 7.3 mg/dL (7.8-10.44); Carbon Dioxide 19 mmol/L (22-29); Chloride 106 mmol/L (98-107); Estimated GFR 40; Glucose 103 mg/dL (70-105); Potassium 3.1 mmol/L (3.5-5.1); Sodium 136 mmol/L (136-145)
[2023-07-23] MEDS ORDERED: Loperamide HCl 2 MG CAP PO PRN (08:51)
[2023-07-23] MEDS ORDERED: Loperamide HCl 2 MG CAP PO SCH (09:00)
[2023-07-23] MEDS ORDERED: Potassium Chloride 20 MEQ TAB PO SCH (09:00)
[2023-07-23] MEDS ORDERED: Potassium Chloride 20 MEQ in Lactated Ringer's 1,000 ML IV SCH ×2 (09:00→09:30)
[2023-07-23] MEDS: Amlodipine 5 MG TAB PO SCH (09:21)
[2023-07-23] MEDS: Sodium Bicarbonate Tab 325 MG TAB PO SCH ×3 (09:21→21:01)
[2023-07-23] MEDS: Heparin 5,000 UNITS/ML VIAL SC SCH ×3 (09:21→21:01)
[2023-07-23] MEDS: predniSONE 5 MG TAB PO SCH (09:21)
[2023-07-23] MEDS: Tacrolimus 1 MG CAP PO SCH (09:21)
[2023-07-23] MEDS: cefTRIAXone\\ROCEPHIN 2 GM in Sodium Chloride 0.9% 100 ML IVPB SCH (13:40)
[2023-07-23] MEDS: Ondansetron PF 4 MG/2 ML Vial IVP PRN (18:02)
[2023-07-23] MEDS ORDERED: Tacrolimus 0.5 MG CAP PO SCH (21:00)
[2023-07-24] MEDS: Fluconazole 100 MG TAB PO SCH (05:58)
[2023-07-24 07:34] LABS: #Eosinphils 0.1 thou/uL (0.0-0.7); #Monocytes 0.5 thou/uL (0.11-0.59); #Neutrophils 5.6 thou/uL (1.40-6.50); %Basophils 0.5 % (0.0-1.0); %Eosinophils 0.9 % (0.0-10.0); %Lymphocytes 14.9 % (21.0-51.0); %Monocytes 6.7 % (0.0-10.0); %Neutrophils 75.5 % (42.0-75.0); Hematocrit 38.3 % (36.0-47.0); Hemoglobin 12.4 g/dL (12.0-16.0); Mean Corpuscular HGB CONC 32.4 g/dL (32.0-36.0); Mean Corpuscular Volume 89.5 fl (78.0-98.0); Mean Platelet Volume 8.4 fL (7.4-10.4); Platelet Count 335 10x3/uL (130-400); RBC Distribution Width 14.9 % (11.5-14.5); Red Blood Cell (RBC) Count 4.28 mill/uL (4.20-5.40); White Blood Cell (WBC) Count 7.5 10x3/uL (4.8-10.8)
[2023-07-24] MEDS: Amlodipine 5 MG TAB PO SCH (08:00)
[2023-07-24] MEDS: Sodium Bicarbonate Tab 325 MG TAB PO SCH ×2 (08:00→14:41)
[2023-07-24] MEDS: predniSONE 5 MG TAB PO SCH (08:00)
[2023-07-24] MEDS: Heparin 5,000 UNITS/ML VIAL SC SCH ×2 (08:00→14:41)
[2023-07-24] MEDS: Tacrolimus 1 MG CAP PO SCH (08:00)
[2023-07-24 08:16] LABS: Anion Gap 16 mmol/L (10-20); BUN (Urea Nitrogen) 7 mg/dL (9.8-20.1); Calc. Creatinine Clearance 28 mL/min (70-130); Calcium 7.5 mg/dL (7.8-10.44); Carbon Dioxide 19 mmol/L (22-29); Chloride 105 mmol/L (98-107); Estimated GFR 41; Glucose 108 mg/dL (70-105); Potassium 3.9 mmol/L (3.5-5.1); Sodium 136 mmol/L (136-145)
[2023-07-24 12:29] VITALS: BP 123/87; TEMP 98.4
[2023-07-24] MEDS: cefTRIAXone\\ROCEPHIN 2 GM in Sodium Chloride 0.9% 100 ML IVPB SCH (14:41)
[2023-07-26 10:13] LABS: Tacrolimus 9.3 ng/mL (2.0-20.0)
== END 2023-07-24 16:27 | disposition home or self-care (01) | DRG 872 ==
LOC: ERS 07:41 → T4-B 12:20
PROVIDERS: ADMIT Internal Medicine; ATTEND Internal Medicine
DX: A41.9 Sepsis, unspecified organism (principal); N17.9 Acute kidney failure, unspecified; N39.0 Urinary tract infection, site not specified; E87.1 Hypo-osmolality and hyponatremia; E44.0 Moderate protein-calorie malnutrition; Z94.0 Kidney transplant status; Z68.1 Body mass index [BMI] 19.9 or less, adult; R65.20 Severe sepsis without septic shock; G43.909 Migraine, unspecified, not intractable, without status migrainosus; M81.0 Age-related osteoporosis without current pathological fracture; F41.9 Anxiety disorder, unspecified; N18.30 Chronic kidney disease, stage 3 unspecified; I12.9 Hypertensive chronic kidney disease with stage 1 through stage 4 chronic kidney disease, or unspecified chronic kidney disease; E87.6 Hypokalemia; Z79.899 Other long term (current) drug therapy; Z98.51 Tubal ligation status; Z90.49 Acquired absence of other specified parts of digestive tract; Z98.890 Other specified postprocedural states
CPT/HCPCS: 36415; 70450; 80048; 80053; 80197; 80202; 81001; 83605; 85025; 87040; 87077; 87086; 87186; 87324; 87449; 90471; 90686; 96365; 96367; 96375; G0008; J0290; J0696; J1644; J2185; J2270; J2272; J2405; J2765; J3370; J3370-JW; J3480; J3490; J7050; J7120; J7507; J7512

== ENCOUNTER 2023-08-12 13:13 | Outpatient (CLI) | payer OTHER | END 2023-08-12 13:14 | disposition home or self-care (01) | LOC: BICMAMMO 13:13 | PROVIDERS: ATTEND Nurse Practitioner Family | DX: Z12.31 Encounter for screening mammogram for malignant neoplasm of breast (principal); Z13.820 Encounter for screening for osteoporosis; M81.0 Age-related osteoporosis without current pathological fracture; M85.89 Other specified disorders of bone density and structure, multiple sites; D50.0 Iron deficiency anemia secondary to blood loss (chronic); N18.5 Chronic kidney disease, stage 5; D63.8 Anemia in other chronic diseases classified elsewhere; Z78.0 Asymptomatic menopausal state; Z80.3 Family history of malignant neoplasm of breast | CPT/HCPCS: 77063; 77067; 77080 ==

== ENCOUNTER 2024-05-10 11:03 | Outpatient (CLI) | payer OTHER | END 2024-05-10 11:04 | disposition home or self-care (01) | LOC: ULT 11:03 | PROVIDERS: ATTEND Physician Assistant Medical | DX: R79.89 Other specified abnormal findings of blood chemistry (principal); R93.421 Abnormal radiologic findings on diagnostic imaging of right kidney; K83.8 Other specified diseases of biliary tract | CPT/HCPCS: 76705 ==

== ENCOUNTER 2024-08-13 10:57 | Outpatient (CLI) | payer OTHER | END 2024-08-13 10:58 | disposition home or self-care (01) | LOC: BICMAMMO 10:57 | PROVIDERS: ATTEND Family Medicine | DX: Z12.31 Encounter for screening mammogram for malignant neoplasm of breast (principal); Z80.3 Family history of malignant neoplasm of breast | CPT/HCPCS: 77063; 77067 ==

== ENCOUNTER 2024-09-02 08:56 | Outpatient (CLI) | payer OTHER | END 2024-09-02 08:57 | disposition home or self-care (01) | LOC: BICMAMMO 08:56 | PROVIDERS: ATTEND Internal Medicine Hematology & Oncology | DX: M81.0 Age-related osteoporosis without current pathological fracture (principal); M85.88 Other specified disorders of bone density and structure, other site | CPT/HCPCS: 77080 ==

== ENCOUNTER 2024-09-20 10:35 | Outpatient (CLI) | payer OTHER | END 2024-09-20 10:36 | disposition home or self-care (01) | LOC: MRI 10:35 | PROVIDERS: ATTEND Internal Medicine | DX: K80.50 Calculus of bile duct without cholangitis or cholecystitis without obstruction (principal); K50.90 Crohn's disease, unspecified, without complications; R79.89 Other specified abnormal findings of blood chemistry; D73.4 Cyst of spleen; N28.1 Cyst of kidney, acquired; N26.1 Atrophy of kidney (terminal); K86.2 Cyst of pancreas | CPT/HCPCS: 74181; 76376 ==